=== PATIENT | male | born 1935 | race Caucasian/White ===

== ENCOUNTER 2016-09-10 12:53 | Inpatient (IN) | payer MEDICAID, OTHER ==
[~2016-09-10] VITALS: Ht 170.2 cm; Wt 59.7 kg
[2016-09-10] MEDS: metroNIDAZOLE 500 MG/NS (PMX) 100 ML IVPB SCH (02:00)
[2016-09-10] MEDS ORDERED: morphine 2 MG INJ IV STA ×2 (15:18→20:17)
[2016-09-10] MEDS ORDERED: SOD CHLORIDE 0.9% 1,000 ML IV STA (15:18)
[2016-09-10] MEDS ORDERED: ONDANSETRON 4 MG INJ IV STA ×2 (15:18→20:17)
--- NOTE | 2016-09-10 16:00 | RADRPT ---
PROCEDURE: XR Chest. CLINICAL INDICATION: Chest pain. Abdominal pain TECHNIQUE: Single frontal chest x-ray. COMPARISON: None. FINDINGS: The lungs are clear of acute infiltrates, edema, effusions, or masses. There is right basilar discoi d atelectasis.. The cardiomediastinal silhouette is unremarkable. The osseous structures are intact . IMPRESSION: Right basilar discoid atelectasis.. RPTAT: JJ .Enrique Story MD, Date Time Electronically viewed and signed by .Enrique Story MD, on 09/10/2016 15:59 .L/
[2016-09-10 16:21] LABS: BASOPHILS % 0.1 % (0.0-2.0); EOSINOPHILS % 0.3 % (0.0-7.0); HEMATOCRIT 52.6 % (42.0-52.0); HEMOGLOBIN 17.8 g/dl (14.0-18.0); LYMPHOCYTES # 1.1 10^3/ul (0.8-2.9); LYMPHOCYTES % 8.2 % (15.0-51.0); MEAN CORPUSCULAR HEMOGLOBIN 32.3 pg (29.0-33.0); MEAN CORPUSCULAR HGB CONC 33.7 g/dl (32.0-37.0); MEAN CORPUSCULAR VOLUME 95.7 fl (82.0-101.0); MONOCYTE # 1.2 10^3/ul (0.3-0.9); MONOCYTES % 9.3 % (0.0-11.0); NEUTROPHIL # 10.5 10^3/ul (1.6-7.5); NEUTROPHILS % 82.1 % (39.0-77.0); PLATELET COUNT 142 10^3/UL (140-440); RED CELL DISTRIBUTION WIDTH 14.9 % (11.5-14.5); UNCORRECTED WBC 12.8 10^3/ul (4.8-10.8); WHITE BLOOD COUNT 12.8 10^3/ul (4.8-10.8)
[2016-09-10 16:22] LABS: CONDITION 1; LH ANALYZER COMMENTS 1
[2016-09-10 16:25] LABS: INR 1.03; PROTIME 13.5 Sec (12.2-14.2); PT RATIO 1.1
[2016-09-10 16:26] LABS: PARTIAL THROMBOPLASTIN TIME 33.9 Sec (25.0-35.0); POTASSIUM 4.2 mmol/L (3.5-5.1)
[2016-09-10 16:28] LABS: ALBUMIN/GLOBULIN RATIO 0.95; BILIRUBIN,INDIRECT 2.3 mg/dl (0-1.1); BILIRUBIN,TOTAL 2.3 mg/dl (0.2-1.3); CREATININE 0.95 mg/dl (0.61-1.24); TOTAL PROTEIN 8.2 g/dl (6.1-8.1)
[2016-09-10 16:29] LABS: CALCIUM 9.2 mg/dl (8.4-10.2)
[2016-09-10 16:38] LABS: TROPONIN-I 0.022 ng/ml (0.00-0.12)
[2016-09-10] MEDS ORDERED: SOD CHLORIDE 0.9% 100 ML ONE (17:23)
[2016-09-10] MEDS ORDERED: IODIXANOL LOCM 100 ML BTL ONE (17:23)
--- NOTE | 2016-09-10 17:41 | RADRPT ---
PROCEDURE: CT Brain without contrast. CLINICAL INDICATION: Trauma due to a fall 2 days ago. TECHNIQUE: A CT of the brain without contrast was performed utilizing axial sections from the skul l base through the vertex. The patient was scanned without intravenous contrast enhancement. Sagitta l and coronal reformatted images were obtained using the data from the axial images. Total exam DLP is 720.23 mGy-cm. CTDIvol is 44.19 mGy. One or more of the following dose reduction techniques we re used: Automated exposure control, adjustment of the mA and/or kV according to patient size, use o f iterative reconstruction technique. COMPARISON: None available FINDINGS: There is normal mayberry-white matter differentiation. There is mild enlargement of the ventricles and subarachnoid spaces consistent with atrophy. Vascul ar calcifications are present consistent with atherosclerosis. There is no intracranial hemorrhage or space-occupying lesion. There is no skull fracture or lytic lesion. IMPRESSION: 1. Mild atrophy. 2. Atherosclerosis. 3. No intracranial hemorrhage. 4. Otherwise unremarkable noncontrast CT scan of the brain. RPTAT: QQ .Mingo Schneider MD, Date Time Electronically viewed and signed by .Mingo Schneider MD, on 09/10/2016 17:41 .R/
--- NOTE | 2016-09-10 17:57 | RADRPT ---
PROCEDURE: CT Abdomen and Pelvis with Contrast CLINICAL INDICATION: Abdominal pain TECHNIQUE: Transaxial images were obtained through the abdomen and pelvis on a multi-slice scanner following the intravenous administration of iodinated contrast. No oral contrast had previously be en given. Sagittal and coronal re-formations were subsequently reconstructed. One or more of the following dose reduction techniques were used: - Automated exposure control. - Adjustment of the mA and/or kV according to patient size. - Use of iterative reconstruction technique. Radiation dose: CTDIvol = 10.05 mGy; DLP = 514.36 mGy-cm. COMPARISON: No prior studies are available for comparison. FINDINGS: Lung bases: Discoid atelectatic changes seen within the lower lobes and right middle lobe. There is a small gravitating right pleural fluid accumulation. The heart is mildly enlarged. Liver: The liver is normal in size and appears diffusely fatty infiltrated. A 2.8 cm peripherally e nhancing nodule is seen within the left lobe of the liver. The liver contour is slightly nodular camacho ggesting cirrhotic change. Gallbladder: There is cholelithiasis with the gallbladder contracted. Bile ducts: The intra and extrahepatic bile ducts are normal in caliber. Pancreas: Appears normal with no mass or inflammation evident. Spleen: Normal in size with no focal lesion. Adrenals: Normal with no mass identified. Kidneys, ureters and bladder: The kidneys enhance normally and are normal in size and there is no ma ss, pathological calcification, or hydronephrosis evident. There is no perinephric stranding. The ur eters are normal in caliber and no ureteroliths are identified. The bladder appears unremarkable. Reproductive organs: The prostate is prominent and contains coarse calcification. Stomach, bowel, and mesentery: There is diverticulosis of the colon. There is bowel wall thickening involving the cecum and ascending colon as well as the proximal transverse colon suspicious for col itis. There is thickening of the wall of the duodenum suspicious for duodenitis. There is no evide nce of bowel obstruction. Appendix: The vermiform appendix is not discretely identified. Peritoneum: No free intraperitoneal fluid or air is identified. Aorta: No abdominal aortic aneurysm is identified but there is fairly extensive mural plaquing which extends to the iliac arteries and a vein common femoral arteries. IVC: Unremarkable. Lymph nodes: No pathologically enlarged nodes are identified. Osseous structures: There is calcification is seen extensively through the anterior longitudinal lig ament compatible with ankylosing spondylitis. There is a chance fracture extending horizontally thr ough the superior L1 vertebral body and to the pedicles. IMPRESSION: 1. Discoid atelectasis is seen in the lower lobes and right middle lobe with a small right gravitati ng pleural fluid accumulation. The heart is mildly enlarged. 2. The liver is normal in size but diffusely fatty infiltrated. A 2.8 cm enhancing nodule is seen within the left lobe of the liver which may represent a hemangioma but is incompletely characterized . 1 might consider correlation with a dynamic CT using angioma protocol. 3. No evidence of urinary outflow obstruction. The prostate is mildly enlarged and contains coarse calcifications. 3. Diverticulosis of the colon with thickening of the wall of the cecum, ascending colon and proxim al transverse colon suspicious for colitis. There is mild thickening of the wall of the duodenum camacho spicious for duodenitis. 4. Aortic tortuosity with fairly extensive atherosclerotic changes and mural plaquing. 5. Ankylosing spondylitis with a chance fracture extending through the superior L1 body and pedicle s. Findings of L1 chance fracture were telephoned by Shyam Bullock MD to Dr. Crenshaw on 09/10/2016 a t 1755 hours. Physician Karoline Date Time Electronically viewed and signed by Physician Karoline on 09/10/2016 17:57 /
[2016-09-10 18:09] VITALS: TEMP 98.2
[2016-09-10] MEDS ORDERED: ONDANSETRON 4 MG INJ IV PRN (19:30)
[2016-09-10] MEDS ORDERED: ACETAMINOPHEN 325 MG TAB PO PRN ×2 (19:30→22:30)
--- NOTE | 2016-09-10 20:13 | ERA ---
ER Documentation Chief Complaint Date/Time DATE: 09/10/16 TIME: 20:04 Chief Complaint MECHANICAL FALL- HIT BACK OF THE HEAD; NO KO; NO N/V - FELL 2 DAY AGO HPI This is an 81-year-old male with a known history of uto-wdmoogz-pwdwmslmr diabetes mellitus who lives in [facility]. The patient is visiting his family here in [place] and 48 hours prior to arrival had gone to [place] for a family alliance party. 2 days prior to arrival the patient had fallen down 6 steps which she stated was a mechanical fall while in [place]. He landed on his buttocks and has been complaining of severe lower back pain since the fall. He has been able to ambulate but states that he can only move very slowly without exacerbating the pain. He did not take any analgesic medication prior to arrival. When the patient fell down the 6 steps he also hit his head but stated he did not lose consciousness. He is felt nauseous but has not experienced any hemoptysis hematemesis or melanotic stools. He does have a history of psoriasis and takes anti-inflammatories on a regular basis for pain from the psoriasis. He has had no fevers no shaking or chills. He denies any chest pain or pressure that radiates to the neck arm back or jaw pain he denies any saddle anesthesia. He denies any changes in his bladder or bowel frequency he states the lower back pain is 10 out of 10 in intensity. Just prior to arrival he did indicate that he was also experiencing some lower abdominal pain more prominent in the left lower quadrant, 8 out of 10 in intensity that was exacerbated with movement. ROS All systems reviewed and are negative except as per history of present illness. Allergies Allergies: Coded Allergies: No Known Allergy (Unverified , 09/10/16) PMhx/Soc Hx Alcohol Use: Yes (previous abuse ) Hx Substance Use: No Hx Tobacco Use: Yes Smoking Status: Current some day smoker Physical Exam Vitals Vital Signs Date Time Temp Pulse Resp B/P Pulse Ox O2 Delivery O2 Flow Rate FiO2 09/10/16 18:09 98.2 78 19 127/78 96 Nasal Cannula 2.0 09/10/16 13:34 98.2 76 19 171/74 93 Physical Exam Constitutional:Well-developed. Well-nourished. Sitting in a chair it was difficult for him to ambulate or stand. HEENT:Normocephalic. Left posterior scalp hematoma..Pupils were equal round reactive to light. Moist mucous membranes.No tonsillar exudates. Neck: No nuchal rigidity. No lymphadenopathy. No posterior cervical spine tenderness or step-offs. Respiratory: Not using accessory muscles of respiration.Lungs were clear to auscultation bilaterally. No rhonchi. No rales. No wheezing. Cardiovascular: Regular rate regular rhythm.No murmurs. No rubs were appreciated.S1, S2 normal. Distal pulses are palpable 2+ bilaterally. GI: Abdomen was soft. Mild tenderness in the left lower quadrant. Non Distended. No pulsatile abdominal masses or bruits. No rebound. No guarding. Bowel sounds were present and normal. No flank ecchymosis. No periumbilical ecchymosis Muscle skeletal: Reproducible tenderness with palpation and percussion over L1- L2 with no tenderness with palpation or percussion over the thoracic spinous processes. Patient had muscular strength 2 out of 5 of the right lower extremity and 4 out of 5 of the left lower extremity. Lower extremities were of equal length and symmetrical with no internal/external rotation. Skin: No petechia, no purpura. No lesions on the palms or the soles of the feet. No maculopapular rash. Psoriasis rash to the right of the paralumbar region. Well-circumscribed psoriasis rash of the left lower abdomen. NEURO: Patient was alert, awake, orientated x3.No facial droop. Gait observed and normal with no ataxia.Speech had regular rate and rhythm. No focal neurological deficits. Result Diagram: 09/10/16 1545 09/10/16 1545 Results 24 hrs Laboratory Tests Test 09/10/16 15:45 Activated Partial Thromboplast Time 33.9Sec Alanine Aminotransferase (ALT/SGPT) 44IU/L Albumin 4.0g/dl Albumin/Globulin Ratio 0.95 Alkaline Phosphatase 207IU/L Amylase Level 49U/L Anion Gap 18 Aspartate Amino Transf (AST/SGOT) 51IU/L Basophils # 0.010^3/ul Basophils % 0.1% Blood Morphology Comment Blood Urea Nitrogen 39mg/dl Calcium Level 9.2mg/dl Carbon Dioxide Level 25mmol/L Chloride Level 103mmol/L Creatinine 0.95mg/dl Direct Bilirubin 0.00mg/dl Eosinophils # 0.010^3/ul Eosinophils % 0.3% Globulin 4.20g/dl Glucose Level 142mg/dl Hematocrit 52.6% Hemoglobin 17.8g/dl INR International Normalized Ratio 1.03 Indirect Bilirubin 2.3mg/dl Lipase 37U/L Lymphocytes # 1.110^3/ul Lymphocytes % 8.2% Mean Corpuscular Hemoglobin 32.3pg Mean Corpuscular Hemoglobin Concent 33.7g/dl Mean Corpuscular Volume 95.7fl Mean Platelet Volume 9.0fl Monocytes # 1.210^3/ul Monocytes % 9.3% Neutrophils # 10.510^3/ul Neutrophils % 82.1% Nucleated Red Blood Cells # 0.010^3/ul Nucleated Red Blood Cells % 0.0/100WBC Platelet Count 05537^3/UL Potassium Level 4.2mmol/L Prothrombin Time 13.5Sec Prothrombin Time Ratio 1.1 Red Blood Count 5.5010^6/ul Red Cell Distribution Width 14.9% Sodium Level 142mmol/L Total Bilirubin 2.3mg/dl Total Protein 8.2g/dl Troponin I 0.022ng/ml White Blood Count 12.810^3/ul Current Medications Medications (Trade) Dose Ordered Sig/Lyudmila Route PRN Reason Start Time Stop Time Status Last Admin Dose Admin Sodium Chloride (NS) 1,000 ml @ 1,000 mls/hr Q1H STAT IV 09/10/16 15:18 09/10/16 16:17 DC 09/10/16 15:57 Morphine Sulfate (morphine) 2 mg ONCE STAT IV 09/10/16 15:18 09/10/16 15:21 DC 09/10/16 15:57 Ondansetron HCl (Zofran Inj) 4 mg ONCE STAT IV 09/10/16 15:18 09/10/16 15:21 DC 09/10/16 15:57 IV Flush 10 ml 10 ml STK-MED ONCE .ROUTE 09/10/16 17:23 09/10/16 17:24 DC 09/10/16 17:50 Sodium Chloride (NS) 100 ml @ ud STK-MED ONCE .ROUTE 09/10/16 17:23 09/10/16 17:24 DC 09/10/16 17:50 Iodixanol (Visipaque Locm) 100 ml STK-MED ONCE .ROUTE 09/10/16 17:23 09/10/16 17:24 DC 09/10/16 17:50 Ondansetron HCl (Zofran Inj) 4 mg ER BRIDGE PRN IV NAUSEA AND/OR VOMITING 09/10/16 19:30 09/11/16 19:29 09/10/16 20:18 Acetaminophen (Tylenol Tab) 650 mg ER BRIDGE PRN PO MILD PAIN/FEVER 09/10/16 19:30 09/11/16 19:29 Morphine Sulfate (morphine) 2 mg ONCE STAT IV 09/10/16 20:17 09/10/16 20:18 DC 09/10/16 20:19 Ondansetron HCl (Zofran Inj) 4 mg ONCE STAT IV 09/10/16 20:17 09/10/16 20:18 DC Procedures/MDM This patient presented to the emergency department 48 hours after a mechanical trip and fall. I obtained a CT scan of the head which showed no acute intracerebral hemorrhage mass-effect or midline shift. The patient appeared to be in a significant amount discomfort of his lower lumbar spine and left lower quadrant and therefore given that there was possible blunt abdominal trauma as he stated he does believe he also landed on the left lower quadrant, I did obtain a CT scan of the abdomen which showed the following as it was read by the radiologist and myself: 1. Discoid atelectasis is seen in the lower lobes and right middle lobe with a small right gravitating pleural fluid accumulation. The heart is mildly enlarged. 2. The liver is normal in size but diffusely fatty infiltrated. A 2.8 cm enhancing nodule is seen within the left lobe of the liver which may represent a hemangioma but is incompletely characterized. 1 might consider correlation with a dynamic CT using angioma protocol. 3. No evidence of urinary outflow obstruction. The prostate is mildly enlarged and contains coarse calcifications. 3. Diverticulosis of the colon with thickening of the wall of the cecum, ascending colon and proximal transverse colon suspicious for colitis. There is mild thickening of the wall of the duodenum suspicious for duodenitis. 4. Aortic tortuosity with fairly extensive atherosclerotic changes and mural plaquing. 5. Ankylosing spondylitis with a chance fracture extending through the superior L1 body and pedicles. 12 Lead EKG tracing ordered and reviewed by myself showed: Normal sinus rhythm of 71 bpm and no arrhythmia. TX interval normal. QRS duration normal. No ST segment elevation. Premature ventricular complexes No ST segment depression. No changes consistent with acute ischemia. Left axis deviation Given the findings on the CT scan of the abdomen I did speak with the neurosurgeon Dr. Fernández. The patient given his age and findings on the CT scan was likely not a surgical candidate but would require a TLSO brace which was ordered by myself. The patient was seen by Dr. Fernández who kindly came to the bedside to further evaluate the patient. The patient received analgesic medication with minimal improvement of his pain which included morphine and Zofran. The patient will be admitted in serious condition to the hospitalist with an anticipated stay of greater than 2 midnights. Critical Care: Time: 50 minutes Treatments/Evaluations: Close monitoring and treatment of unstable vital signs, cardiorespiratory, and neurologic status, while maintaining tight balance of fluid, respiratory, and cardiac interventions. Time does not include performing any of the above billable procedures. Departure Diagnosis: Primary Impression: Closed head injury Qualified Code: S09.90XA - Closed head injury, initial encounter Additional Impressions: Fracture of lumbar vertebra, closed Qualified Code: S32.018A - Other closed fracture of first lumbar vertebra, initial encounter Ankylosing spondylitis Condition: Serious MAMTA MARCOS Sep 10, 2016 20:13
[2016-09-10] MEDS ORDERED: LORAZEPAM 2 MG INJ IV PRN (22:30)
[2016-09-10] MEDS ORDERED: NACL 0.9% 3 ML SYG IV SCH (22:30)
[2016-09-11] VITALS (13 sets, daily range): BP systolic 111–133; BP diastolic 56–76; PULSE 63–74; RESP 19–20; Ht 170.2 cm; Wt 59.7 kg
[2016-09-11] MEDS: DOCUSATE SODIUM 100 MG CAP PO SCH ×3 (02:47→21:52)
[2016-09-11] MEDS: CIPROFLOXACIN 400MG/D5W 200 ML IVPB SCH ×3 (02:47→21:52)
[2016-09-11] MEDS: metroNIDAZOLE 500 MG/NS (PMX) 100 ML IVPB SCH ×3 (06:17→21:52)
[2016-09-11 06:58] LABS: BASOPHILS % 0.4 % (0.0-2.0); EOSINOPHILS # 0.2 10^3/ul (0.0-0.5); EOSINOPHILS % 1.7 % (0.0-7.0); HEMATOCRIT 45.6 % (42.0-52.0); HEMOGLOBIN 15.5 g/dl (14.0-18.0); LYMPHOCYTES # 1.5 10^3/ul (0.8-2.9); LYMPHOCYTES % 14.1 % (15.0-51.0); MEAN CORPUSCULAR HEMOGLOBIN 32.6 pg (29.0-33.0); MEAN CORPUSCULAR HGB CONC 34.1 g/dl (32.0-37.0); MEAN CORPUSCULAR VOLUME 95.6 fl (82.0-101.0); MEAN PLATELET VOLUME 9.1 fl (7.4-10.4); MONOCYTE # 1.3 10^3/ul (0.3-0.9); MONOCYTES % 12.1 % (0.0-11.0); NEUTROPHIL # 7.5 10^3/ul (1.6-7.5); NEUTROPHILS % 71.7 % (39.0-77.0); PLATELET COUNT 137 10^3/UL (140-440); RED BLOOD COUNT 4.77 10^6/ul (4.70-6.10); UNCORRECTED WBC 10.4 10^3/ul (4.8-10.8); WHITE BLOOD COUNT 10.4 10^3/ul (4.8-10.8)
[2016-09-11 07:01] LABS: CONDITION 1
[2016-09-11 07:02] LABS: LH ANALYZER COMMENTS 1
[2016-09-11 07:23] LABS: ALBUMIN 3.1 g/dl (3.3-4.9)
[2016-09-11 07:24] LABS: POTASSIUM 4.2 mmol/L (3.5-5.1)
[2016-09-11 07:26] LABS: ALBUMIN/GLOBULIN RATIO 0.93; BILIRUBIN,INDIRECT 2.2 mg/dl (0-1.1); BILIRUBIN,TOTAL 2.2 mg/dl (0.2-1.3); CREATININE 0.78 mg/dl (0.61-1.24); TOTAL PROTEIN 6.4 g/dl (6.1-8.1)
[2016-09-11 07:27] LABS: CALCIUM 8.3 mg/dl (8.4-10.2); CHOL/HDL RATIO 4.9 RATIO
[2016-09-11] MEDS: morphine 2 MG INJ IV PRN ×2 (08:47→18:43)
[2016-09-11] MEDS: HEPARIN 5,000 UNIT/0.5 ML SYG SC SCH ×2 (08:49→23:49)
--- NOTE | 2016-09-11 09:39 | HP ---
DATE OF ADMISSION: 09/10/2016 TIME SEEN: 2300 CHIEF COMPLAINT: Mechanical fall, back pain, and difficulty walking. HISTORY OF PRESENT ILLNESS: The patient is an 81-year-old male with a history of diabetes and psori asis who presented to the emergency department with above-stated chief complaint. The patient fell down 6 steps 3 days ago while he was in [place]. He landed on his buttock and since then has been ex periencing lower back pain and difficulty ambulating because of the pain. He also did hit the back of his head, but denied loss of consciousness. When he presented to the ER, blood pressure was 171/74, heart rate 76, respiratory rate 19, temperat ure 98.0, oxygen saturation 93% on room air. Laboratory values show WBC of almost 13,000, hematocri t 62.6, BUN 13 with a creatinine of 0.9, total bilirubin 2.3, AST 51, alkaline phosphatase 207. Bra in CT showed mild atrophy, otherwise unremarkable. Chest x-ray shows right basilar discoid atelecta sis. CT abdomen and pelvis with contrast showed ankylosing spondylitis with Chance fracture extendi ng through the superior L1 body and pedicles. Of note, the diverticulosis of the colon as well as t hickening of the cecum, ascending colon, and the proximal transverse colon suspicious for colitis. Also, mild thickening of the duodenum suspicious for duodenitis. He also has a 2.8 cm enhancing nod ule within the left lobe of the liver which may represent a hemangioma. The discoid atelectasis als o was seen on the lower lobe and right middle lobe with a small right pleural fluid accumulation. Mervin Freed, the on-call neurosurgeon, had been consulted by the ER physician. REVIEW OF SYSTEMS: Negative except as mentioned in the HPI. PAST MEDICAL HISTORY: As per HPI. SOCIAL HISTORY: History of alcohol abuse in the past. ALLERGIES: NO KNOWN DRUG ALLERGIES. HOME MEDICATIONS: None listed. PHYSICAL EXAMINATION: VITAL SIGNS: Stable. GENERAL: Elderly male lying in bed in no acute distress, sleepy, but arousable. HEENT: There is a scalp hematoma on the left posterior region. Pupils are reactive to light. CARDIOVASCULAR: Regular rate and rhythm. No extra sounds. LUNGS: Slightly diminished breath sounds at the bases. ABDOMEN: Soft, there is some mild tenderness in the left lower quadrant with no guarding, rebound t enderness, no rigidity. There is psoriasis on the left lower abdominal region. EXTREMITIES: No edema. NEUROLOGIC AND MUSCULOSKELETAL: There is tenderness and lower back/lumbar region to palpation. He has decreased strength in the right lower extremity. A rash consistent with psoriasis was noted in the lumbar region. IMPRESSION: 1. Status post mechanical fall with head and back injury. 2. Fracture of the lumbar vertebra. 3. Closed head injury, with a negative head CT finding. 4. Colitis, diverticulosis, and duodenitis. 5. Left lower lobe liver nodule. 6. Diffuse fatty liver. 7. History of alcohol abuse. 8. Diabetes. 9. Leukocytosis. 10. Erythrocytosis, likely hemoconcentration from dehydration. PLAN: We will provide pain medication. Currently, he is awaiting evaluation by neurosurgeon and wi ll leave the decision up surgeon as far as lasted obtaining additional imaging is concerned. She wi ll be placed on antibiotic given CT finding of colitis and duodenitis. Leukocytosis could be second patrice to infectious etiology from the colitis versus stress-induced, but in any case, he will be will send stool studies. He will be on insulin for his diabetes. Also, he has an enhancing nodule on his liver, and given history of alcohol abuse, will obtain a high resolution CT or MRI for furth er evaluation. The patient will have a physical therapy when cleared by Neurosurgery. Further workup and management per clinical course. Dictated By: ETHEL ARANDA/KEREN Conf#: [id number] DID#: [id number]
[2016-09-11 11:57] LABS: CARCINOEMBRYONIC ANTIGEN 2.1 ng/ml (0.0-5.0)
[2016-09-11 12:01] LABS: CANCER ANTIGEN 19-9 6.3 U/ml (0.0-37.0)
--- NOTE | 2016-09-11 12:53 | RADRPT ---
Echocardiogram Report Patient Name: HIEU CARPIO Gender: Male Date: 1935 Study Date: 11-Sep-2016 Reserve Officer: Devaughn Marie [facility] Location: 512A Ref. Physician: ETHEL CARTAGENA Quality: Technically Difficult Study Procedures: Transthoracic echocardiogram with complete 2D, M-Mode, and doppler examination. Indications: Dizziness. 2D/M Mode Doppler Measurement Value Normal Ranges Measurement Value Normal Ranges LVIDd 2D 4.9 3.5 - 5.6 cm AV Peak Anthony 1.1 m/sec LVIDs 2D 2.9 2.1 - 4.1 cm AV Peak PG 4.8 mmHg LVPWd 2D 0.9 0.6 - 1.1 cm LVOT Peak Anthony 0.9 m/sec IVSd 2D 0.8 0.6 - 1.1 cm LVOT Peak PG 3.3 mmHg AoR Diam 2D 2.4 2.0 - 3.7 cm MV E Peak Anthony 0.7 m/sec EDV 2D 111.6 cm3 MV A Peak Anthony 0.8 m/sec ESV 2D 25.0 cm3 MV E/A 0.9 LA Dimen 2D 3.3 2.3 - 4.0 cm MV Decel Time 233 msec MV Decel [place] 3 MV E/A 0.9 Findings Left Ventricle: Lower limits of normal systolic function. Ejection fraction is visually estimated at 50 %. Tissue Doppler/Mitral Doppler indices are consistent with impaired relaxation (Stage I diastolic dysfunction). Right Ventricle: Normal right ventricular size. Normal right ventricular systolic function. Left Atrium: The left atrium is normal in size. Right Atrium: The right atrium is normal in size. Mitral Valve: Mitral valve leaflets appear mildly thickened. Trace mitral regurgitation. Aortic Valve: Normal appearance of the aortic valve. No significant aortic stenosis or insufficiency. Tricuspid Valve: Normal appearance and function of the tricuspid valve with trace physiologic regurgitation. Pericardium: Normal pericardium with no significant pericardial effusion. Aorta: Normal aortic root. IVC: Normal size and normal respiratory collapse consistent with normal right atrial pressure. Conclusions 1.Lower limits of normal systolic function. Ejection fraction is visually estimated at 50 %. Tissue Doppler/Mitral Doppler indices are consistent with impaired relaxation (Stage I diastolic dysfunction). 2.Mitral valve leaflets appear mildly thickened. Trace mitral regurgitation. 3.Normal appearance and function of the tricuspid valve with trace physiologic regurgitation. Electronically Signed By: Walter Austin 11-Sep-2016 12:53:08 -0800 Patient Name: HIEU CARPIO Study Date: 11-Sep-[id number]
--- NOTE | 2016-09-11 15:00 | PN ---
Date/Time of Note Date/Time of Note DATE: 09/11/16 TIME: 14:55 Assessment/Plan VTE Prophylaxis VTE Prophylaxis Intervention: heparin Lines/Catheters IV Catheter Type (from Nrs): Saline Lock Urinary Cath still in place: No Assessment/Plan Chief Complaint/Hosp Course 1. Status post mechanical fall with head and Fracture of the lumbar vertebra -plan is for Brace placement 3. Closed head injury, with a negative head CT finding. 4. Liver nodule with Hx of EtOH abuse -US Abd to eval Liver and for ascites and tumor markers 5. Diabetes-A1c at 8.0 6. Leukocytosis-resolved PPx- Heparin Problems: Subjective 24 Hr Interval Summary Musculoskeletal: back pain Exam/Review of Systems Vital Signs Vitals Vital Signs Date Time Temp Pulse Resp B/P Pulse Ox O2 Delivery O2 Flow Rate FiO2 09/11/16 12:16 64 09/11/16 12:04 98.8 20 111/56 91 09/10/16 23:10 Room Air 09/10/16 18:09 2.0 Intake and Output 09/10/16 09/10/16 09/11/16 15:00 23:00 07:00 Intake Total 200 ml Balance 200 ml Exam Constitutional: alert Respiratory: clear to auscultation Cardiovascular: regular rate and rhythm Gastrointestinal: distended, soft Musculoskeletal: nl extremities to inspection Results Result Diagram: 09/11/1660409/11/16604 Results 24 hrs Laboratory Tests Test 09/10/16 15:45 09/11/16 06:05 Activated Partial Thromboplast Time 33.9 Alanine Aminotransferase (ALT/SGPT) 44 39 Albumin 4.0 3.1 L Albumin/Globulin Ratio 0.95 0.93 Alkaline Phosphatase 207 H 160 H Amylase Level 49 Anion Gap 18 H 13 Aspartate Amino Transf (AST/SGOT) 51 H 35 Basophils # 0.0 0.0 Basophils % 0.1 0.4 Blood Morphology Comment Blood Urea Nitrogen 39 H 33 H Calcium Level 9.2 8.3 L Carbon Dioxide Level 25 26 Chloride Level 103 105 Creatinine 0.95 0.78 Direct Bilirubin 0.00 0.00 Eosinophils # 0.0 0.2 Eosinophils % 0.3 1.7 Globulin 4.20 H 3.30 H Glucose Level 142 112 Hematocrit 52.6 H 45.6 Hemoglobin 17.8 15.5 INR International Normalized Ratio 1.03 Indirect Bilirubin 2.3 H 2.2 H Lipase 37 Lymphocytes # 1.1 1.5 Lymphocytes % 8.2 L 14.1 L Mean Corpuscular Hemoglobin 32.3 32.6 Mean Corpuscular Hemoglobin Concent 33.7 34.1 Mean Corpuscular Volume 95.7 95.6 Mean Platelet Volume 9.0 9.1 Monocytes # 1.2 H 1.3 H Monocytes % 9.3 12.1 H Neutrophils # 10.5 H 7.5 Neutrophils % 82.1 H 71.7 Nucleated Red Blood Cells # 0.0 0.0 Nucleated Red Blood Cells % 0.0 0.0 Platelet Count 142 137 L Potassium Level 4.2 4.2 Prothrombin Time 13.5 Prothrombin Time Ratio 1.1 Red Blood Count 5.50 4.77 Red Cell Distribution Width 14.9 H 15.0 H Sodium Level 142 140 Total Bilirubin 2.3 H 2.2 H Total Protein 8.2 H 6.4 # Troponin I 0.022 White Blood Count 12.8 H 10.4 Alpha Fetoprotein 3.40 CA 19-9 Antigen 6.3 Carcinoembryonic Antigen 2.1 Cholesterol Level 154 Cholesterol/HDL Ratio 4.9 HDL Cholesterol 31 Hemoglobin A1c 8.0 H LDL Cholesterol, Calculated 90 Magnesium Level 2.0 Triglycerides Level 165 H Medications Medications Current Medications Lorazepam (Ativan) 0.5 mg Q6H PRN IV ANXIETY; Start 09/10/16 at 22:30 Ondansetron HCl (Zofran Inj) 4 mg Q6H PRN IV NAUSEA AND/OR VOMITING; Start at 22:30 Acetaminophen (Tylenol Tab) 650 mg Q6H PRN PO PAIN LEVEL 1-3 OR FEVER; Start at 22:30 Oxycodone/ Acetaminophen (Percocet (5/ 325)) 1 tab Q6H PRN PO PAIN LEVEL 4-6; Start 09/10/16 at 22:30 Morphine Sulfate (morphine) 2 mg Q4H PRN IV PAIN LEVEL 7-10 Last administered on 09/11/16 08:47; Admin Dose 2 MG; Start 09/10/16 at 22:30 Docusate Sodium (Colace) 100 mg Q12 PO Last administered on 09/11/16 08:47; Admin Dose 100 MG; Start 09/11/16 at 00:30 Heparin Sodium (Porcine) 5000 unit 5,000 unit Q12 SC Last administered on 08:49; Admin Dose 5,000 UNIT; Start 09/11/16 at 09:00 Ciprofloxacin/ Dextrose 200 ml @ 200 mls/hr Q12 IVPB Last administered on 08:47; Admin Dose 200 MLS/HR; Start 09/11/16 at 00:15 Metronidazole (Flagyl 500 Mg (Pmx)) 100 ml @ 100 mls/hr Q8 IVPB Last administered on 09/11/16 06:17; Admin Dose 100 MLS/HR; Start 09/10/16 at 23:15 Influenza Virus Vaccine (Fluzone) 0.5 ml ONCE ONCE IM* ; Start 09/13/16 at 09:00 ; Stop 09/13/16 at 09:01 YSABEL CORNEJO Sep 11, 2016 15:00
--- NOTE | 2016-09-11 16:29 | RADRPT ---
PROCEDURE: US Abdomen (right upper quadrant). CLINICAL INDICATION: Right upper quadrant abdomen pain. TECHNIQUE: Multiple real-time longitudinal and transverse images of the right upper quadrant of th e abdomen were acquired utilizing a curved array transducer. Images were reviewed on a high-resoluti on PACS workstation. COMPARISON: CT scan of the abdomen and pelvis dated 09/10/2016. FINDINGS: The liver is normal in size and diffusely heterogeneous. There is a solid hypoechoic mass in the le ft hepatic lobe measuring 2.2 x 2.8 x 2.9 cm. There is no other focal hepatic lesion. The liver has a nodular surface consistent with cirrhosis. Gallstones are present in the gallbladder. There is no gallbladder wall thickening and there is no fluid around the gallbladder. The bile ducts are normal with the common bile duct measuring 6.5 mm in diameter. The pancreas is not visualized due to overlying bowel gas. There is no ascites. The right kidney measures 9.3 cm. There is normal echogenicity of the right kidney. There is no p erinephric fluid collection. No hydronephrosis, mass, or calculus is seen. IMPRESSION: 1. Diffusely heterogeneous nodular liver consistent with cirrhosis. 2. Mass in the left hepatic lobe measuring 2.9 cm in maximal dimension. This may be due to neoplas m. Correlation with MRI without and with contrast should be considered. 3. Gallstones in the gallbladder. No evidence of cholecystitis. 4. Pancreas not visualized. 5. No ascites. 6. Otherwise unremarkable study. RPTAT: QQ .Mingo Schneider MD, Date Time Electronically viewed and signed by .Mingo Schneider MD, MD on 09/11/2016 16:29 .R/
--- NOTE | 2016-09-11 18:25 | CONS ---
DATE OF ADMISSION: 09/10/2016 DATE OF CONSULTATION: 09/10/2016 TYPE OF CONSULTATION: Neurosurgical REQUESTING PHYSICIAN: Coby Crenshaw MD INDICATION FOR CONSULTATION: Lumbar fracture. HISTORY OF PRESENT ILLNESS: The patient is an 81-year-old male with a history of diabetes who lives in [facility]. 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 The patient apparently had a mechanical fall where he tripped down some stairs. He landed on his buttocks. Denied any neck pain or hitting his head, but reports severe low back pain. This was 2 days ago. The patient came back to the and was brought to the ER. Here he denies any numbness, tingling, bowel or bladder issues (other than chronic slight urgency from BPH. He reports severe mid back pain. He denies any saddle anesthesia. The patient also had reported some abdominal pain previously, but on my exam denied this. REVIEW OF SYSTEMS: A 12-point review of systems performed. Pertinent positives and negatives listed in the history of present illness or below. ALLERGIES: NO KNOWN DRUG ALLERGIES. PAST MEDICAL HISTORY: Diabetes. SOCIAL HISTORY: The patient is . He is a smoker, smokes a pack a day. He does drink alcohol and has a reported history of ETOH abuse. PHYSICAL EXAMINATION: VITAL SIGNS: The patient's temperature 98.6, pulse 78, respirations 19, blood pressure 127/70. GENERAL: The patient is a well-developed, well-nourished male sitting up in the [facility]. HEAD AND NECK: Normocephalic, atraumatic. He has no Raya sign, periorbital ecchymoses, otorrhea, or rhinorrhea. His neck is supple, nontender with no paraspinal or midline tenderness. He has full range of motion. MUSCULOSKELETAL: The patient has normal tone and bulk. His motor exam is 5/5 bilaterally upper and lower extremities, although he has some pain with movement. NEUROLOGIC: He is awake, alert, and oriented x3. Fluent speech, follows commands readily and appropriately. He has no pronator drift. Deep tendon reflexes are absent diffusely. He has no clonus, Babinski, or Debbi sign. He has no focal deficits. LABORATORY DATA: White count 12.8, hemoglobin 17.8, platelets 142. Sodium 142 , BUN and creatinine 39 and 0.95. REVIEW OF RADIOGRAPHIC RESULTS: The patient had a CT of the chest, abdomen and pelvis. This showed what was interpreted as a Chance-type fracture that goes through the anterior and posterior elements of the vertebral body of L1. 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 This appears to be more of a crack. There is no displacement, distraction, angulation or slippage and the bones are approximated. ASSESSMENT AND PLAN: An 81-year-old male status post fall with a non-displaced Chance-type fracture. The patient is neurologically intact. I see no indication for an MRI given his intact neurologic status. He has no evidence of clonus and/or bowel or bladder issues or focal motor weakness. Given the patient's age and comorbidities and given the nondisplaced and approximation of this fracture, I believe the patient would best be treated simply with a TLSO, which should be worn at all times when the patient is upright. Given the patient's underlying dystrophic calcification, his fracture should heal. Should the patient develop any neurologic symptoms, then polina-maging should be performed. Thank you for allowing me to participate in the care of this patient. Dictated By: NAVIN MANUEL MD, LG/KEREN Conf#: [id number] DID#: [id number]
[2016-09-11] MEDS ORDERED: GLUCOSE GEL 15 GRAM TUBE PO PRN ×2 (21:30)
[2016-09-11] MEDS ORDERED: GLUCAGON 1 MG INJ IM PRN (21:30)
[2016-09-11] MEDS ORDERED: GLUCOSE GEL 15 GRAM TUBE BUCCAL PRN (21:30)
[2016-09-11] MEDS ORDERED: DEXTROSE 50% 50 ML SYRINGE IV PRN ×2 (21:30)
[2016-09-11] MEDS: INSULIN ASPART [NOVOLOG] 3 ML PEN SC SCH (22:00)
[2016-09-12] VITALS (11 sets, daily range): BP systolic 116–148; BP diastolic 56–74; PULSE 69–143; RESP 20
[2016-09-12] MEDS: morphine 2 MG INJ IV PRN ×5 (00:04→23:46)
[2016-09-12] MEDS: ACCUCHECK XX SCH (02:00)
[2016-09-12] MEDS ORDERED: ACCUCHECK XX SCH (02:00)
[2016-09-12] MEDS: metroNIDAZOLE 500 MG/NS (PMX) 100 ML IVPB SCH ×3 (06:09→22:32)
[2016-09-12] MEDS: INSULIN ASPART [NOVOLOG] 3 ML PEN SC SCH ×4 (07:55→21:00)
[2016-09-12 08:22] LABS: BASOPHILS % 0.3 % (0.0-2.0); EOSINOPHILS # 0.1 10^3/ul (0.0-0.5); EOSINOPHILS % 1.1 % (0.0-7.0); HEMATOCRIT 44.9 % (42.0-52.0); HEMOGLOBIN 15.6 g/dl (14.0-18.0); MEAN CORPUSCULAR HGB CONC 34.7 g/dl (32.0-37.0); MEAN CORPUSCULAR VOLUME 95.2 fl (82.0-101.0); MONOCYTE # 0.9 10^3/ul (0.3-0.9); NEUTROPHIL # 6.4 10^3/ul (1.6-7.5); NEUTROPHILS % 75.6 % (39.0-77.0); PLATELET COUNT 142 10^3/UL (140-440); RED BLOOD COUNT 4.72 10^6/ul (4.70-6.10); RED CELL DISTRIBUTION WIDTH 14.9 % (11.5-14.5); UNCORRECTED WBC 8.4 10^3/ul (4.8-10.8); WHITE BLOOD COUNT 8.4 10^3/ul (4.8-10.8)
[2016-09-12 08:29] LABS: CONDITION 1; LH ANALYZER COMMENTS 1
[2016-09-12 08:31] LABS: POTASSIUM 4.1 mmol/L (3.5-5.1)
[2016-09-12 08:34] LABS: CALCIUM 8.3 mg/dl (8.4-10.2); CREATININE 0.83 mg/dl (0.61-1.24)
[2016-09-12] MEDS: DOCUSATE SODIUM 100 MG CAP PO SCH ×2 (08:38→20:07)
[2016-09-12] MEDS: CIPROFLOXACIN 400MG/D5W 200 ML IVPB SCH ×2 (08:38→20:07)
[2016-09-12] MEDS: HEPARIN 5,000 UNIT/0.5 ML SYG SC SCH ×2 (08:41→21:09)
[2016-09-12] MEDS: OXYCODONE/ACETAMINOPHEN (5/325) TAB PO PRN ×2 (09:36→20:07)
[2016-09-12 14:22] LABS: HAAIG REFLEX REFLEX FILED
[2016-09-12 15:26] LABS: HEPATITIS B CORE ANTIBODY NEGATIVE (NEGATIVE)
--- NOTE | 2016-09-12 15:55 | PN ---
Date/Time of Note Date/Time of Note DATE: 09/12/16 TIME: 15:51 Assessment/Plan VTE Prophylaxis VTE Prophylaxis Intervention: heparin Lines/Catheters IV Catheter Type (from Nrs): Peripheral IV Urinary Cath still in place: No Assessment/Plan Chief Complaint/Hosp Course 1. Status post mechanical fall with head and Fracture of the lumbar vertebra -plan is for Brace placement 3. Closed head injury, with a negative head CT finding. 4. Liver nodule with Hx of EtOH abuse -US Abd shows Liver nodule, Hep panel and Tumor markers negative -Consult with Dr Tao appreciated, plan is for MRI Liver 5. Diabetes-A1c at 8.0 -NISS 6. Leukocytosis-resolved PPx- Heparin Problems: Subjective 24 Hr Interval Summary Musculoskeletal: back pain Exam/Review of Systems Vital Signs Vitals Vital Signs Date Time Temp Pulse Resp B/P Pulse Ox O2 Delivery O2 Flow Rate FiO2 09/12/16 15:14 98.1 65 20 130/58 95 09/12/16 10:55 2.0 09/10/16 23:10 Room Air Intake and Output 09/11/16 09/11/16 09/12/16 15:00 23:00 07:00 Intake Total 1100 ml 850 ml Balance 1100 ml 850 ml Exam Constitutional: alert Respiratory: clear to auscultation Cardiovascular: regular rate and rhythm Gastrointestinal: soft, No distended Musculoskeletal: nl extremities to inspection Results Result Diagram: 09/12/16 0730 09/12/16 0730 Results 24 hrs Laboratory Tests Test 09/11/16 22:14 09/12/16 07:30 09/12/16 08:06 09/12/16 11:57 Bedside Glucose 108 114 118 Anion Gap 13 Basophils # 0.0 Basophils % 0.3 Blood Morphology Comment Blood Urea Nitrogen 27 H Calcium Level 8.3 L Carbon Dioxide Level 23 Chloride Level 106 Creatinine 0.83 Eosinophils # 0.1 Eosinophils % 1.1 Glucose Level 118 Hematocrit 44.9 Hemoglobin 15.6 Lymphocytes # 1.0 Lymphocytes % 12.0 L Mean Corpuscular Hemoglobin 33.0 Mean Corpuscular Hemoglobin Concent 34.7 Mean Corpuscular Volume 95.2 Mean Platelet Volume 9.0 Monocytes # 0.9 Monocytes % 11.0 Neutrophils # 6.4 Neutrophils % 75.6 Nucleated Red Blood Cells # 0.0 Nucleated Red Blood Cells % 0.0 Platelet Count 142 Potassium Level 4.1 Red Blood Count 4.72 Red Cell Distribution Width 14.9 H Sodium Level 138 White Blood Count 8.4 Test 09/12/16 13:50 Hepatitis B Core Total Antibody NEGATIVE Hepatitis B Surface Antigen NEGATIVE Hepatitis C Antibody NEGATIVE Medications Medications Current Medications Lorazepam (Ativan) 0.5 mg Q6H PRN IV ANXIETY; Start 09/10/16 at 22:30 Ondansetron HCl (Zofran Inj) 4 mg Q6H PRN IV NAUSEA AND/OR VOMITING; Start at 22:30 Acetaminophen (Tylenol Tab) 650 mg Q6H PRN PO PAIN LEVEL 1-3 OR FEVER; Start at 22:30 Oxycodone/ Acetaminophen (Percocet (5/ 325)) 1 tab Q6H PRN PO PAIN LEVEL 4-6 Last administered on 09/12/16 09:36; Admin Dose 1 TAB; Start 09/10/16 at 22:30 Morphine Sulfate (morphine) 2 mg Q4H PRN IV PAIN LEVEL 7-10 Last administered on 09/12/16 10:12; Admin Dose 2 MG; Start 09/10/16 at 22:30 Docusate Sodium (Colace) 100 mg Q12 PO Last administered on 09/12/16 08:38; Admin Dose 100 MG; Start 09/11/16 at 00:30 Heparin Sodium (Porcine) 5000 unit 5,000 unit Q12 SC Last administered on 08:41; Admin Dose 5,000 UNIT; Start 09/11/16 at 09:00 Ciprofloxacin/ Dextrose 200 ml @ 200 mls/hr Q12 IVPB Last administered on 08:38; Admin Dose 200 MLS/HR; Start 09/11/16 at 00:15 Metronidazole (Flagyl 500 Mg (Pmx)) 100 ml @ 100 mls/hr Q8 IVPB Last administered on 09/12/16 13:19; Admin Dose 100 MLS/HR; Start 09/10/16 at 23:15 Influenza Virus Vaccine (Fluzone) 0.5 ml ONCE ONCE IM* ; Start 09/13/16 at 09:00 ; Stop 09/13/16 at 09:01 Diagnostic Test (Pha) (Accucheck) 1 ea 02 XX ; Start 2/2/17 at 02:00 Miscellaneous Information 1 ea NOTE XX ; Start 09/11/16 at 21:30 Glucose (Glutose) 15 gm Q15M PRN PO DECREASED GLUCOSE; Start 09/11/16 at 21:30 Glucose (Glutose) 22.5 gm Q15M PRN PO DECREASED GLUCOSE; Start 09/11/16 at 21:30 Dextrose (D50w Syringe) 25 ml Q15M PRN IV DECREASED GLUCOSE; Start 09/11/16 at 21:30 Dextrose (D50w Syringe) 50 ml Q15M PRN IV DECREASED GLUCOSE; Start 09/11/16 at 21:30 Glucagon (Glucagen) 1 mg Q15M PRN IM DECREASED GLUCOSE; Start 09/11/16 at 21:30 Glucose (Glutose) 15 gm Q15M PRN BUCCAL DECREASED GLUCOSE; Start 09/11/16 at 21: 30 Phenol (Cepastat Lozenge) 1 lozenge Q1H PRN MT SORE THROAT; Start 09/12/16 at 15 :00 YSABEL CORNEJO Sep 12, 2016 15:55
[2016-09-12] MEDS: CEPASTAT LOZENGE MT PRN ×2 (17:36→20:07)
--- NOTE | 2016-09-12 19:13 | CONS ---
Date/Time of Note Date/Time of Note DATE: 09/12/16 TIME: 19:11 Assessment/Plan Assessment/Plan Chief Complaint/Hosp Course L1 chance fracture with . awaiting TLSO- need full brace. Spinal precautions until brace is fitted. Problems: Consultation Date/Type/Reason Admit Date/Time Sep 10, 2016 at 19:04 Initial Consult Date Type of Consultation: Neurosurgery 24 HR Interval Summary Free Text/Dictation Patient still reports low back pain. Denies numbness, tingling, weakness or bowel or bladder issues. Exam/Review of Systems Vital Signs Vitals Vital Signs Date Time Temp Pulse Resp B/P Pulse Ox O2 Delivery O2 Flow Rate FiO2 09/12/16 17:39 98.2 70 20 140/64 95 09/12/16 10:55 2.0 09/10/16 23:10 Room Air Intake and Output 09/11/16 09/11/16 09/12/16 15:00 23:00 07:00 Intake Total 1100 ml 850 ml Balance 1100 ml 850 ml Exam Constitutional: alert, oriented, well developed Psych: no complaints Neurological: [employer]ATIONS [employer] II-XII intact, nl mental status, nl strength Results Result Diagram: 09/12/16 0730 09/12/16 0730 Results 24 hrs Laboratory Tests Test 09/11/16 22:14 09/12/16 07:30 09/12/16 08:06 09/12/16 11:57 Bedside Glucose 108 114 118 Anion Gap 13 Basophils # 0.0 Basophils % 0.3 Blood Morphology Comment Blood Urea Nitrogen 27 H Calcium Level 8.3 L Carbon Dioxide Level 23 Chloride Level 106 Creatinine 0.83 Eosinophils # 0.1 Eosinophils % 1.1 Glucose Level 118 Hematocrit 44.9 Hemoglobin 15.6 Lymphocytes # 1.0 Lymphocytes % 12.0 L Mean Corpuscular Hemoglobin 33.0 Mean Corpuscular Hemoglobin Concent 34.7 Mean Corpuscular Volume 95.2 Mean Platelet Volume 9.0 Monocytes # 0.9 Monocytes % 11.0 Neutrophils # 6.4 Neutrophils % 75.6 Nucleated Red Blood Cells # 0.0 Nucleated Red Blood Cells % 0.0 Platelet Count 142 Potassium Level 4.1 Red Blood Count 4.72 Red Cell Distribution Width 14.9 H Sodium Level 138 White Blood Count 8.4 Test 09/12/16 13:50 09/12/16 16:34 Hepatitis B Core Total Antibody NEGATIVE Hepatitis B Surface Antigen NEGATIVE Hepatitis C Antibody NEGATIVE Bedside Glucose 124 Medications Medications Current Medications Lorazepam (Ativan) 0.5 mg Q6H PRN IV ANXIETY; Start 09/10/16 at 22:30 Ondansetron HCl (Zofran Inj) 4 mg Q6H PRN IV NAUSEA AND/OR VOMITING; Start at 22:30 Acetaminophen (Tylenol Tab) 650 mg Q6H PRN PO PAIN LEVEL 1-3 OR FEVER; Start at 22:30 Oxycodone/ Acetaminophen (Percocet (5/ 325)) 1 tab Q6H PRN PO PAIN LEVEL 4-6 Last administered on 09/12/16 09:36; Admin Dose 1 TAB; Start 09/10/16 at 22:30 Morphine Sulfate (morphine) 2 mg Q4H PRN IV PAIN LEVEL 7-10 Last administered on 09/12/16 17:01; Admin Dose 2 MG; Start 09/10/16 at 22:30 Docusate Sodium (Colace) 100 mg Q12 PO Last administered on 09/12/16 08:38; Admin Dose 100 MG; Start 09/11/16 at 00:30 Heparin Sodium (Porcine) 5000 unit 5,000 unit Q12 SC Last administered on 08:41; Admin Dose 5,000 UNIT; Start 09/11/16 at 09:00 Ciprofloxacin/ Dextrose 200 ml @ 200 mls/hr Q12 IVPB Last administered on 08:38; Admin Dose 200 MLS/HR; Start 09/11/16 at 00:15 Metronidazole (Flagyl 500 Mg (Pmx)) 100 ml @ 100 mls/hr Q8 IVPB Last administered on 09/12/16 13:19; Admin Dose 100 MLS/HR; Start 09/10/16 at 23:15 Influenza Virus Vaccine (Fluzone) 0.5 ml ONCE ONCE IM* ; Start 09/13/16 at 09:00 ; Stop 09/13/16 at 09:01 Diagnostic Test (Pha) (Accucheck) 1 ea 02 XX ; Start 09/12/16 at 02:00 Miscellaneous Information 1 ea NOTE XX ; Start 09/11/16 at 21:30 Glucose (Glutose) 15 gm Q15M PRN PO DECREASED GLUCOSE; Start 09/11/16 at 21:30 Glucose (Glutose) 22.5 gm Q15M PRN PO DECREASED GLUCOSE; Start 09/11/16 at 21:30 Dextrose (D50w Syringe) 25 ml Q15M PRN IV DECREASED GLUCOSE; Start 09/11/16 at 21:30 Dextrose (D50w Syringe) 50 ml Q15M PRN IV DECREASED GLUCOSE; Start 09/11/16 at 21:30 Glucagon (Glucagen) 1 mg Q15M PRN IM DECREASED GLUCOSE; Start 09/11/16 at 21:30 Glucose (Glutose) 15 gm Q15M PRN BUCCAL DECREASED GLUCOSE; Start 09/11/16 at 21: 30 Phenol (Cepastat Lozenge) 1 lozenge Q1H PRN MT SORE THROAT Last administered on 09/12/16t 17:36; Admin Dose 1 LOZENGE; Start 09/12/16 at 15:00 NAVIN MANUEL MD Sep 12, 2016 19:13
--- NOTE | 2016-09-12 19:46 | CONS ---
[facility] INITIAL INPATIENT CONSULTATION NOTE DATE OF CONSULTATION: 09/12/2016 PLACE OF SERVICE: [facility], 5th floor telemetry. IMPRESSION AND PLAN: A very pleasant but unfortunate 81-year-old gentleman with previous history of alcoholism and other comorbidities including diabetes mellitus, psoriasis and a recent fall with lumbar fractures who has been shown to have an incidental 2 to 2.5 cm left lobe of the liver segment II/III lesion which appears to have characteristics of benign entity such as hemangioma but at the same time also has concerning features for malignancy as seen on the ultrasound. My recommendation would be further workup with a liver-dedicated MRI which would hopefully delineate hemangioma and other benign processes from possible malignancy. Even though the alpha-fetoprotein and other tumor markers are low, the possibility of a biopsy should be considered if there are enough findings on the MRI, and the patient otherwise would be a good surgical candidate for laparoscopic left lateral segmentectomy with a reasonably low risk of problems and potential big benefits if this lesion is proven to be a malignancy. At this time, we do not have enough information to make that decision, and I have clearly expressed this to the patient's family. Note that the patient's family was very insistent on keeping the diagnosis somewhat away from the patient for now and have them be the deliverer of news if this was thought to be a malignancy. I answered all their questions to the best of my ability, and they appeared to understand and wished to proceed with the plan. With above assessment, I recommend the followin. Liver-dedicated triple-phase IV contrast MRI of the abdomen. 2. Multidisciplinary Tumor Board presentation. 3. Will follow up after above. Thank you again for allowing us to participate in the care of this very pleasant gentleman and his wonderful family. TOTAL VISIT TIME: 45 minutes, of which more than half was spent in face-to- face discussion with the patient, discussions with his daughter as well as coordination of care between multiple physicians and providers. UPDATED CLINICAL SUMMARY: The patient is a very pleasant 81-year-old gentleman with known comorbid issues including prior alcoholism, diabetes and psoriasis who was admitted through the emergency department at [facility] on 09/10/2016 with back pain and difficulty walking after a fall. CT scan of abdomen and pelvis demonstrated a 2.8 cm peripherally enhancing nodule within left lobe of the liver. COMORBIDITIES: 1. Previous alcohol abuse for approximately 25 years that the patient stopped 35 years ago. 2. Psoriasis. 3. Diabetes mellitus. 4. Back pain. 5. Difficulty walking. DATE OF ADMISSION: 09/10/2016 HISTORY OF PRESENT ILLNESS: The patient is a very pleasant 81-year-old gentleman with the above-mentioned comorbidities and history who we were kindly asked to consult on due to the finding on the liver CT. I had a chance today to meet with the patient and his daughter and do a complete history and physical myself. No abdominal pain. No nausea or vomiting. The appetite is reportedly poor and has been for the last few months. No significant changes in weight. No blood in the stool or urine. ALLERGIES: NO KNOWN DRUG ALLERGIES. HOME MEDICATIONS: None listed. SOCIAL HISTORY: The patient lives with his family. No current alcohol, but previous alcohol abuse reported. Negative sign tobacco. Negative sign for intravenous drug use. FAMILY HISTORY: No reported major medical, surgical or oncologic problems in the family. REVIEW OF SYSTEMS: Other than the above mentioned, there are no other pertinent positives or pertinent negatives in a complete 14-point review of systems. PHYSICAL EXAMINATION: GENERAL: The patient appears to be a very pleasant gentleman of [place] descent from [facility] originally, lying in bed comfortably and in no acute distress. BMI is 20.6. VITAL SIGNS: He is afebrile. Blood pressure 130/58. Pulse 65. Respiratory rate 20. Pulse oximetry 95% on 2 L of nasal cannula. HEENT: Normocephalic and atraumatic. Extraocular muscles and hearing are grossly intact bilaterally and symmetrically. Sclerae are nonicteric. Oral cavity is clear; oral mucosa appeared to be pink and moist. Dentition: fair. NECK: Supple. There is no lymphadenopathy or JVD. There is no submental, submandibular or supraclavicular lymphadenopathy. CHEST: Rises symmetrically with each breath; patient is breathing comfortably. There are no audible wheezes, rales or rhonchi on the gross exam. HEART: HPulse is regular and palpable on the *right wrist. Capillary refill was normal. Carotid pulses are palpable bilaterally and symmetrically in the neck. EXTREMITIES: Lower extremities contain no pitting edema around the ankles bilaterally and symmetrically. ABDOMEN: Soft, nontender and nondistended. There is slight hint of ascites, but there is no caput medusae or engorged subcutaneous veins. There are no peritoneal signs or guarding. SKIN: Appears to be pink and feels warm to touch. NEUROLOGIC: Awake, alert, and follows commands appropriately. LABORATORY VALUES: White blood cell count 8.4, hemoglobin 15.6, platelets 142 and mainly in the 130s to 140s. Electrolytes are normal. CO2 23, creatinine 0.83, total bilirubin 2.2, AST 35, ALT 36. Alkaline phosphatase 160, down from 207. Albumin 3.1 after hydration. Normal lipid panels. Amylase 49, lipase 37. Alpha-fetoprotein 3.4, CEA 2.1, CA 19-9 is 6.3. INR 1.03. Serology is negative for hepatitis B surface antigen and B core antibody. Hepatitis C antibody was negative. IMAGING: Pertinent CT findings were reviewed above. There was also an ultrasound of the liver that appeared to show a mass in the left hepatic lobe measuring 2.9 cm in maximal dimension. Possibility of neoplasm was raised, and correlation with MRI without and with contrast was recommended. Dictated By: SUNIL ARROYO/KEREN Conf#: [id number] DID#: [id number]
[2016-09-13] MEDS: ACCUCHECK XX SCH ×2 (01:02→23:01)
[2016-09-13] MEDS: CEPASTAT LOZENGE MT PRN (02:45)
[2016-09-13] MEDS: metroNIDAZOLE 500 MG/NS (PMX) 100 ML IVPB SCH ×3 (05:46→22:40)
[2016-09-13] MEDS: INSULIN ASPART [NOVOLOG] 3 ML PEN SC SCH ×4 (07:50→21:00)
[2016-09-13] MEDS: DOCUSATE SODIUM 100 MG CAP PO SCH ×2 (08:43→20:28)
[2016-09-13] MEDS: CIPROFLOXACIN 400MG/D5W 200 ML IVPB SCH ×2 (08:43→20:28)
[2016-09-13] MEDS: HEPARIN 5,000 UNIT/0.5 ML SYG SC SCH ×2 (08:45→20:33)
[2016-09-13] MEDS: morphine 2 MG INJ IV PRN (08:47)
[2016-09-13] MEDS ORDERED: INFLUENZA VIRUS VACCINE 0.5 ML (DISPENSING) IM* ONE (09:00)
[2016-09-13 09:04] VITALS: BP 139/65; RESP 19
--- NOTE | 2016-09-13 11:36 | PN ---
Date/Time of Note Date/Time of Note DATE: 09/13/16 TIME: 11:35 Assessment/Plan VTE Prophylaxis VTE Prophylaxis Intervention: heparin Lines/Catheters IV Catheter Type (from Nrs): Saline Lock Urinary Cath still in place: No Assessment/Plan Chief Complaint/Hosp Course 1. Status post mechanical fall with head and Fracture of the lumbar vertebra -plan is for Brace placement, brace delivery is pending -Neurosurgery is following 3. Closed head injury, with a negative head CT finding. 4. Liver nodule with Hx of EtOH abuse -US Abd shows Liver nodule, Hep panel and Tumor markers negative -Consult with Dr Tao appreciated, plan is for MRI Liver 5. Diabetes-A1c at 8.0 -NISS 6. Leukocytosis-resolved PPx- Heparin Problems: Subjective 24 Hr Interval Summary Gastrointestinal: pain Musculoskeletal: back pain Exam/Review of Systems Vital Signs Vitals Vital Signs Date Time Temp Pulse Resp B/P Pulse Ox O2 Delivery O2 Flow Rate FiO2 09/13/16 09:04 98.8 77 19 139/65 95 09/12/16 20:00 2.0 09/10/16 23:10 Room Air Intake and Output 09/12/16 09/12/16 09/13/16 15:00 23:00 07:00 Intake Total 300 ml 440 ml 550 ml Output Total 600 ml Balance 300 ml 440 ml -50 ml Exam Constitutional: alert Respiratory: clear to auscultation Cardiovascular: regular rate and rhythm Gastrointestinal: soft, tender, No distended Musculoskeletal: nl extremities to inspection Results Result Diagram: 09/12/16 0730 09/12/16 0730 Results 24 hrs Laboratory Tests Test 09/12/16 11:57 09/12/16 13:50 09/12/16 16:34 09/12/16 20:06 Bedside Glucose 118 124 129 Hepatitis B Core Total Antibody NEGATIVE Hepatitis B Surface Antigen NEGATIVE Hepatitis C Antibody NEGATIVE Test 09/13/16 08:04 Bedside Glucose 110 Medications Medications Current Medications Lorazepam (Ativan) 0.5 mg Q6H PRN IV ANXIETY; Start 09/10/16 at 22:30 Ondansetron HCl (Zofran Inj) 4 mg Q6H PRN IV NAUSEA AND/OR VOMITING; Start at 22:30 Acetaminophen (Tylenol Tab) 650 mg Q6H PRN PO PAIN LEVEL 1-3 OR FEVER; Start at 22:30 Oxycodone/ Acetaminophen (Percocet (5/ 325)) 1 tab Q6H PRN PO PAIN LEVEL 4-6 Last administered on 09/12/16 20:07; Admin Dose 1 TAB; Start 09/10/16 at 22:30 Morphine Sulfate (morphine) 2 mg Q4H PRN IV PAIN LEVEL 7-10 Last administered on 09/13/16 08:47; Admin Dose 2 MG; Start 09/10/16 at 22:30 Docusate Sodium (Colace) 100 mg Q12 PO Last administered on 09/13/16 08:43; Admin Dose 100 MG; Start 09/11/16 at 00:30 Heparin Sodium (Porcine) 5000 unit 5,000 unit Q12 SC Last administered on 08:45; Admin Dose 5,000 UNIT; Start 09/11/16 at 09:00 Ciprofloxacin/ Dextrose 200 ml @ 200 mls/hr Q12 IVPB Last administered on 08:43; Admin Dose 200 MLS/HR; Start 09/11/16 at 00:15 Metronidazole (Flagyl 500 Mg (Pmx)) 100 ml @ 100 mls/hr Q8 IVPB Last administered on 09/13/16 05:46; Admin Dose 100 MLS/HR; Start 09/10/16 at 23:15 Diagnostic Test (Pha) (Accucheck) 1 ea 02 XX ; Start 09/12/16 at 02:00 Miscellaneous Information 1 ea NOTE XX ; Start 09/11/16 at 21:30 Glucose (Glutose) 15 gm Q15M PRN PO DECREASED GLUCOSE; Start 09/11/16 at 21:30 Glucose (Glutose) 22.5 gm Q15M PRN PO DECREASED GLUCOSE; Start 09/11/16 at 21:30 Dextrose (D50w Syringe) 25 ml Q15M PRN IV DECREASED GLUCOSE; Start 09/11/16 at 21:30 Dextrose (D50w Syringe) 50 ml Q15M PRN IV DECREASED GLUCOSE; Start 09/11/16 at 21:30 Glucagon (Glucagen) 1 mg Q15M PRN IM DECREASED GLUCOSE; Start 09/11/16 at 21:30 Glucose (Glutose) 15 gm Q15M PRN BUCCAL DECREASED GLUCOSE; Start 09/11/16 at 21: 30 Phenol (Cepastat Lozenge) 1 lozenge Q1H PRN MT SORE THROAT Last administered on 09/13/16t 02:45; Admin Dose 5 LOZENGE; Start 09/12/16 at 15:00 YSABEL CORNEJO Sep 13, 2016 11:36
--- NOTE | 2016-09-13 13:35 | PN ---
Date/Time of Note Date/Time of Note DATE: 09/13/16 TIME: 13:35 Assessment/Plan Lines/Catheters IV Catheter Type (from Nrs): Peripheral IV Storey in Place (from Nrs): No Assessment/Plan Assessment/Plan [facility] Progress Note Date of Service: 09/13/2016 Today's Assessment & Plan: Overall stable and doing well. Awaiting MRI to further evaluate liver mass. No indication for acute surgical intervention. Discussed with patient and family. With above assessment, I've recommended the following for today: 1. Liver dedicated MRI 2. We'll follow after above Thank you again for your great care of this very pleasant young lady and her wonderful family. If there are any questions, please feel free to call me at . TOTAL VISIT TIME: 20 minutes of which more than half was spent in [id number] discussion with the patient as well as coordination of care between multiple physicians and providers. Disclaimer: Inadvertent spelling and grammatical errors are likely due to EHR/ dictation software use and do not reflect on the quality of delivered patient care. Also, please note that the electronic time recorded on this node does not necessarily reflect the actual time of the visit. UPDATED CLINICAL SUMMARY: The patient is a very pleasant 81-year-old gentleman with known comorbid issues including prior alcoholism, diabetes and psoriasis who was admitted through the emergency department at [facility] on 09/10/2016 with back pain and difficulty walking after a fall. CT scan of abdomen and pelvis demonstrated a 2.8 cm peripherally enhancing nodule within left lobe of the liver. COMORBIDITIES: 1. Previous alcohol abuse for approximately 25 years that the patient stopped 35 years ago. 2. Psoriasis. 3. Diabetes mellitus. 4. Back pain. 5. Difficulty walking. Subjective: No major events or complaints; no major abd pain and under control with medications; no n/v/d; no sob or cp; + flatus; + BM and normal; + activity Objective: Vitals: See below I's & O's: See below Exam: GENERAL: On exam, the patient was lying in bed and appeared to be comfortable and in no acute distress. ABDOMEN: Soft, nontender and nondistended. There are no peritoneal signs or guarding. SKIN: Skin appears to be pink and feels warm to touch. NEUROLOGIC: Patient is awake, alert, and follows commands appropriately. Labs: See below Exam/Review of Systems Vital Signs Vitals Vital Signs Date Time Temp Pulse Resp B/P Pulse Ox O2 Delivery O2 Flow Rate FiO2 09/13/16 09:04 98.8 77 19 139/65 95 09/13/16 08:00 3.0 09/10/16 23:10 Room Air Intake and Output 09/12/16 09/12/16 09/13/16 15:00 23:00 07:00 Intake Total 300 ml 440 ml 550 ml Output Total 600 ml Balance 300 ml 440 ml -50 ml Results Result Diagram: 09/12/16 0730 09/12/16 0730 SUNIL MACKEY M.D. Sep 13, 2016 13:35
[2016-09-13] MEDS: SOD CHLORIDE 0.45% 1,000 ML IV SCH (16:34)
--- NOTE | 2016-09-13 17:45 | RADRPT ---
AMENDMENT: 09/13/2016 5:51:09 PM Sigifredo Salvador M.D RPTAT: HPNM PROCEDURE: MR Abdomen. CLINICAL INDICATION: Abdominal pain TECHNIQUE: Multiplanar MRI of the abdomen was performed without the administration of intravenous Gadolinium. prior to and following the intravenous administration of 10 cc of ProHance. Exam was per formed in the noncontrast, arterial, portal venous, equilibrium, and delayed phases. COMPARISON: CT of the abdomen and pelvis 09/10/2016 FINDINGS: The liver service is slightly nodular. The liver morphology is abnormal enlargement of the caudate l obe and lateral segment of the left hepatic lobe. A round focal enhancing lesion in the left hepati c lobe is seen on arterial phase which demonstrate rapid washout on the portal venous phase. The le ft hepatic lobe mass measures approximate 2.2 cm in size. No other definite liver lesions are seen. The portal vein is patent. The portal vein is normal in caliber. The hepatic vein is patent. The gallbladder is contracted. There are no internal signal voids to suggest the presence of cholel ithiasis. There is no gallbladder wall thickening or pericholecystic fluid. There is no intrahepat ic or extrahepatic biliary duct dilatation. The pancreas and adrenal glands are unremarkable. The kidneys are symmetric in size and homogeneous in signal intensity and enhancement. There is no hydronephrosis or abnormal perinephric inflammation. The abdominal aorta is atherosclerotic. There is no periaortic / retroperitoneal lymphadenopathy. The stomach and visualized small large intestines are unremarkable. There are no focal inflammatory changes of the mesentery. There is no mesenteric lymphadenopathy. There is no ascites. There are no bone marrow signal abnormalities. Subcutaneous soft tissues are unremarkable. Bibasila r atelectasis is suggested. IMPRESSION: 1. Abnormal liver morphology with a nodular surface, the findings which are consistent with cirrhos is. 2. Focal arterial enhancing mass in the left hepatic lobe lesion in the setting of chronic liver di sease is worrisome for a basilar carcinoma. Further evaluation with tissue diagnosis is recommended . RPTAT: HLST Physician Pippa Date Time Electronically viewed and signed by Physician Pippa on 09/13/2016 17:51 /
[2016-09-13] MEDS: MAGNESIUM HYDROXIDE 30ML CUP PO PRN (20:27)
[2016-09-13] MEDS: SENNA TAB PO SCH (20:29)
[2016-09-13] MEDS ORDERED: DOCUSATE SODIUM 100 MG CAP PO SCH (21:00)
[2016-09-13 21:31] VITALS: BP_SYST 136; BP_SYST 159; BP_DIAS 64; BP_DIAS 73; RESP 17; RESP 20
--- NOTE | 2016-09-13 22:24 | CONS ---
Date/Time of Note Date/Time of Note DATE: 09/13/16 TIME: 22:22 Assessment/Plan Assessment/Plan Chief Complaint/Hosp Course L1 chance fracture with . awaiting TLSO- need full brace. Spinal precautions/ bedrest until brace is fitted. Upright x-rays once in brace. Problems: Consultation Date/Type/Reason Admit Date/Time Sep 10, 2016 at 19:04 Type of Consultation: Neurosurgery 24 HR Interval Summary Free Text/Dictation Patient without new complaints. Reports low back pain. denies weakness, numbness , tingling, bowel or bladder issues.. Exam/Review of Systems Vital Signs Vitals Vital Signs Date Time Temp Pulse Resp B/P Pulse Ox O2 Delivery O2 Flow Rate FiO2 09/13/16 21:31 97.8 84 20 136/64 97 09/13/16 21:00 Nasal Cannula 2.0 Intake and Output 09/12/16 09/12/16 09/13/16 15:00 23:00 07:00 Intake Total 300 ml 440 ml 550 ml Output Total 600 ml Balance 300 ml 440 ml -50 ml Exam Constitutional: alert, oriented, well developed Neurological: [employer] II-XII intact, DTR's symmetric, nl mental status, nl speech, nl strength, other Results Result Diagram: 09/12/16 0730 09/12/16 0730 Results 24 hrs Laboratory Tests Test 09/13/16 08:04 09/13/16 12:32 09/13/16 17:29 09/13/16 20:13 Bedside Glucose 110 131 112 133 Medications Medications Current Medications Lorazepam (Ativan) 0.5 mg Q6H PRN IV ANXIETY; Start 09/10/16 at 22:30 Ondansetron HCl (Zofran Inj) 4 mg Q6H PRN IV NAUSEA AND/OR VOMITING; Start at 22:30 Acetaminophen (Tylenol Tab) 650 mg Q6H PRN PO PAIN LEVEL 1-3 OR FEVER; Start at 22:30 Oxycodone/ Acetaminophen (Percocet (5/ 325)) 1 tab Q6H PRN PO PAIN LEVEL 4-6 Last administered on 09/12/16t 20:07; Admin Dose 1 TAB; Start 09/10/16 at 22:30 Morphine Sulfate (morphine) 2 mg Q4H PRN IV PAIN LEVEL 7-10 Last administered on 09/13/16 08:47; Admin Dose 2 MG; Start 09/10/16 at 22:30 Docusate Sodium (Colace) 100 mg Q12 PO Last administered on 09/13/16 20:28; Admin Dose 100 MG; Start 09/11/16 at 00:30 Heparin Sodium (Porcine) 5000 unit 5,000 unit Q12 SC Last administered on 20:33; Admin Dose 5,000 UNIT; Start 09/11/16 at 09:00 Ciprofloxacin/ Dextrose 200 ml @ 200 mls/hr Q12 IVPB Last administered on 20:28; Admin Dose 200 MLS/HR; Start 09/11/16 at 00:15 Metronidazole (Flagyl 500 Mg (Pmx)) 100 ml @ 100 mls/hr Q8 IVPB Last administered on 09/13/16 16:34; Admin Dose 100 MLS/HR; Start 09/10/16 at 23:15 Diagnostic Test (Pha) (Accucheck) 1 ea 02 XX ; Start 09/12/16 at 02:00 Miscellaneous Information 1 ea NOTE XX ; Start 09/11/16 at 21:30 Glucose (Glutose) 15 gm Q15M PRN PO DECREASED GLUCOSE; Start 09/11/16 at 21:30 Glucose (Glutose) 22.5 gm Q15M PRN PO DECREASED GLUCOSE; Start 09/11/16 at 21:30 Dextrose (D50w Syringe) 25 ml Q15M PRN IV DECREASED GLUCOSE; Start 09/11/16 at 21:30 Dextrose (D50w Syringe) 50 ml Q15M PRN IV DECREASED GLUCOSE; Start 09/11/16 at 21:30 Glucagon (Glucagen) 1 mg Q15M PRN IM DECREASED GLUCOSE; Start 09/11/16 at 21:30 Glucose (Glutose) 15 gm Q15M PRN BUCCAL DECREASED GLUCOSE; Start 09/11/16 at 21: 30 Phenol 1 lozenge 1 lozenge Q1H PRN MT SORE THROAT Last administered on 02:45; Admin Dose 5 LOZENGE; Start 09/12/16 at 15:00 Sodium Chloride (1/2 NS) 1,000 ml @ 75 mls/hr [id number] IV Last administered on 09/13/16 16:34; Admin Dose 75 MLS/HR; Start 09/13/16 at 16:30 Senna (Senokot) 1 tab BID PO Last administered on 09/13/16 20:29; Admin Dose 1 TAB; Start 09/13/16 at 21:00 Magnesium Hydroxide (Milk Of Mag) 30 ml DAILY PRN PO CONSTIPATION Last administered on 09/13/16 20:27; Admin Dose 30 ML; Start 09/13/16 at 16:30 Influenza Virus Vaccine (Fluzone) 0.5 ml ONCE ONCE IM* ; Start 09/14/16 at 09:00 ; Stop 09/14/16 at 09:01 NAVIN MANUEL MD Sep 13, 2016 22:24
[2016-09-14] MEDS: metroNIDAZOLE 500 MG/NS (PMX) 100 ML IVPB SCH ×3 (05:45→22:56)
[2016-09-14] MEDS: SOD CHLORIDE 0.45% 1,000 ML IV SCH ×2 (05:46→15:11)
[2016-09-14 07:00] VITALS: BP 139/67; RESP 20
[2016-09-14] MEDS: INSULIN ASPART [NOVOLOG] 3 ML PEN SC SCH ×4 (07:50→21:00)
[2016-09-14] MEDS ORDERED: INFLUENZA VIRUS VACCINE 0.5 ML (DISPENSING) IM* ONE (09:00)
--- NOTE | 2016-09-14 09:12 | PN ---
Date/Time of Note Date/Time of Note DATE: 09/14/16 TIME: 09:07 Assessment/Plan VTE Prophylaxis VTE Prophylaxis Intervention: heparin Lines/Catheters IV Catheter Type (from [facility]): Peripheral IV Urinary Cath still in place: No Assessment/Plan Assessment/Plan PROBLEMS: Status post mechanical fall with head and L1 Fracture * s/p bracse delivery * Neurosurgery is following Closed head injury, with a negative head CT finding. Liver cirrhosis with L hepatic lobe nodule concerning for Carcinoma * -Hep C negative / ?biopsy / f/u surgical plan 5. Diabetes type 2 -A1c at 8.0 : controlled with diet and NISS only 6. Leukocytosis-resolved 7. Groin rash likely tinea cruris * add IV antifungals d/t severity 8. Colitis / Duodenitis : continue IV abx 9. R sided atelectasis and effusion r/o pnemonia (?aspiration) : CXR PPx- Heparin Subjective 24 Hr Interval Summary Free Text/Dictation Patient seen and examined. Daughter notes: constipation Neuropathic pain R LE groin rash productive cough Exam/Review of Systems Vital Signs Vitals Vital Signs Date Time Temp Pulse Resp B/P Pulse Ox O2 Delivery O2 Flow Rate FiO2 09/14/16 07:00 97.9 67 20 139/67 97 09/13/16 21:00 Nasal Cannula 2.0 Intake and Output 09/13/16 09/13/16 09/14/16 15:00 23:00 07:00 Intake Total 200 ml 270 ml 1050 ml Balance 200 ml 270 ml 1050 ml Exam Constitutional: alert Respiratory: reduced breath sounds, coarse loud crackles in upper airway Cardiovascular: regular rate and rhythm Gastrointestinal: soft, tender, No distended Genitourinary: erythematous , extensive macular rash in groin with erythematous skin over testicles Musculoskeletal: nl extremities to inspection Skin: psoriatic lesions on abd and thigh Results Result Diagram: 09/12/16 0730 09/12/16 0730 Results 24 hrs Laboratory Tests Test 09/13/16 12:32 09/13/16 17:29 09/13/16 20:13 09/14/16 07:59 Bedside Glucose 131 112 133 113 Medications Medications Current Medications Lorazepam (Ativan) 0.5 mg Q6H PRN IV ANXIETY; Start 09/10/16 at 22:30 Ondansetron HCl (Zofran Inj) 4 mg Q6H PRN IV NAUSEA AND/OR VOMITING; Start at 22:30 Acetaminophen (Tylenol Tab) 650 mg Q6H PRN PO PAIN LEVEL 1-3 OR FEVER; Start at 22:30 Oxycodone/ Acetaminophen (Percocet (5/ 325)) 1 tab Q6H PRN PO PAIN LEVEL 4-6 Last administered on 09/12/16 20:07; Admin Dose 1 TAB; Start 09/10/16 at 22:30 Morphine Sulfate (morphine) 2 mg Q4H PRN IV PAIN LEVEL 7-10 Last administered on 09/13/16 08:47; Admin Dose 2 MG; Start 09/10/16 at 22:30 Docusate Sodium (Colace) 100 mg Q12 PO Last administered on 09/13/16 20:28; Admin Dose 100 MG; Start 09/11/16 at 00:30 Heparin Sodium (Porcine) 5000 unit 5,000 unit Q12 SC Last administered on 20:33; Admin Dose 5,000 UNIT; Start 09/11/16 at 09:00 Ciprofloxacin/ Dextrose 200 ml @ 200 mls/hr Q12 IVPB Last administered on 20:28; Admin Dose 200 MLS/HR; Start 09/11/16 at 00:15 Metronidazole (Flagyl 500 Mg (Pmx)) 100 ml @ 100 mls/hr Q8 IVPB Last administered on 09/14/16 05:45; Admin Dose 100 MLS/HR; Start 09/10/16 at 23:15 Diagnostic Test (Pha) (Accucheck) 1 ea 02 XX ; Start 09/12/16 at 02:00 Miscellaneous Information 1 ea NOTE XX ; Start 09/11/16 at 21:30 Glucose (Glutose) 15 gm Q15M PRN PO DECREASED GLUCOSE; Start 09/11/16 at 21:30 Glucose (Glutose) 22.5 gm Q15M PRN PO DECREASED GLUCOSE; Start 09/11/16 at 21:30 Dextrose (D50w Syringe) 25 ml Q15M PRN IV DECREASED GLUCOSE; Start 09/11/16 at 21:30 Dextrose (D50w Syringe) 50 ml Q15M PRN IV DECREASED GLUCOSE; Start 09/11/16 at 21:30 Glucagon (Glucagen) 1 mg Q15M PRN IM DECREASED GLUCOSE; Start 09/11/16 at 21:30 Glucose (Glutose) 15 gm Q15M PRN BUCCAL DECREASED GLUCOSE; Start 09/11/16 at 21: 30 Phenol 1 lozenge 1 lozenge Q1H PRN MT SORE THROAT Last administered on 02:45; Admin Dose 5 LOZENGE; Start 09/12/16 at 15:00 Sodium Chloride (1/2 NS) 1,000 ml @ 75 mls/hr [id number] IV Last administered on 09/14/16 05:46; Admin Dose 75 MLS/HR; Start 09/13/16 at 16:30 Senna (Senokot) 1 tab BID PO Last administered on 09/13/16 20:29; Admin Dose 1 TAB; Start 09/13/16 at 21:00 Magnesium Hydroxide (Milk Of Mag) 30 ml DAILY PRN PO CONSTIPATION Last administered on 09/13/16 20:27; Admin Dose 30 ML; Start 09/13/16 at 16:30 Procedures Procedures PROCEDURE: MR Abdomen. CLINICAL INDICATION: Abdominal pain TECHNIQUE: Multiplanar MRI of the abdomen was performed without the administration of intravenous Gadolinium. prior to and following the intravenous administration of 10 cc of ProHance. Exam was performed in the noncontrast, arterial, portal venous, equilibrium, and delayed phases. COMPARISON: CT of the abdomen and pelvis 09/10/2016 FINDINGS: The liver service is slightly nodular. The liver morphology is abnormal enlargement of the caudate lobe and lateral segment of the left hepatic lobe. A round focal enhancing lesion in the left hepatic lobe is seen on arterial phase which demonstrate rapid washout on the portal venous phase. The left hepatic lobe mass measures approximate 2.2 cm in size. No other definite liver lesions are seen. The portal vein is patent. The portal vein is normal in caliber. The hepatic vein is patent. The gallbladder is contracted. There are no internal signal voids to suggest the presence of cholelithiasis. There is no gallbladder wall thickening or pericholecystic fluid. There is no intrahepatic or extrahepatic biliary duct dilatation. The pancreas and adrenal glands are unremarkable. The kidneys are symmetric in size and homogeneous in signal intensity and enhancement. There is no hydronephrosis or abnormal perinephric inflammation. The abdominal aorta is atherosclerotic. There is no periaortic / retroperitoneal lymphadenopathy. The stomach and visualized small large intestines are unremarkable. There are no focal inflammatory changes of the mesentery. There is no mesenteric lymphadenopathy. There is no ascites. There are no bone marrow signal abnormalities. Subcutaneous soft tissues are unremarkable. Bibasilar atelectasis is suggested. IMPRESSION: 1. Abnormal liver morphology with a nodular surface, the findings which are consistent with cirrhosis. 2. Focal arterial enhancing mass in the left hepatic lobe lesion in the setting of chronic liver disease is worrisome for a basilar carcinoma. Further evaluation with tissue diagnosis is recommended. RPTAT: HLST Physician Pippa Date Time Electronically viewed and signed by Physician Pippa on 09/13/2016 17 :51 / CC: SUNIL MACKEY M.D., [place] M. Sep 14, 2016 09:12
[2016-09-14] MEDS: CIPROFLOXACIN 400MG/D5W 200 ML IVPB SCH ×2 (09:18→20:58)
[2016-09-14] MEDS: SENNA TAB PO SCH ×2 (09:18→20:58)
[2016-09-14] MEDS: DOCUSATE SODIUM 100 MG CAP PO SCH ×2 (09:18→20:58)
[2016-09-14] MEDS: HEPARIN 5,000 UNIT/0.5 ML SYG SC SCH ×2 (09:20→20:56)
--- NOTE | 2016-09-14 14:41 | PN ---
Date/Time of Note Date/Time of Note DATE: 09/14/16 TIME: 14:38 Assessment/Plan Lines/Catheters IV Catheter Type (from Nrs): Peripheral IV Storey in Place (from Nrs): No Assessment/Plan Assessment/Plan [facility] Progress Note Date of Service: 09/14/2016 Today's Assessment & Plan: Overall stable and doing well. Liver MRI shows enough worrisome features to warrant recommendation for surgical resection. Given the location of this mass, the patient may be eligible for a laparoscopic left lateral lobectomy of the liver which should be fairly well-tolerated even though the patient has baseline liver disease. I explained this to the patient's daughter but did not explain this to the patient himself as requested by the patient's family. Currently there is no indication for acute surgical intervention while he is recovering from his fall. Patient can be discharged home once medically stable and with plan on scheduling the patient for an outpatient visit in my office where we will consent the patient and family for this operation, which we hope to do in the next 2-3 weeks. With above assessment, I've recommended the following for today: 1. Continue current cares 2. Discharge home when medically stabilized 3. Outpatient visit [facility] 4. Schedule for elective laparoscopic, possible open left lateral hepatectomy with intraoperative ultrasound Thank you again for your great care of this very pleasant gentleman and his wonderful family. If there are any questions, please feel free to call me at . TOTAL VISIT TIME: 20 minutes of which more than half was spent in [id number] discussion with the patient as well as coordination of care between multiple physicians and providers. Disclaimer: Inadvertent spelling and grammatical errors are likely due to EHR/ dictation software use and do not reflect on the quality of delivered patient care. Also, please note that the electronic time recorded on this node does not necessarily reflect the actual time of the visit. UPDATED CLINICAL SUMMARY: The patient is a very pleasant 81-year-old gentleman with known comorbid issues including prior alcoholism, diabetes and psoriasis who was admitted through the emergency department at [facility] on 09/10/2016 with back pain and difficulty walking after a fall. CT scan of abdomen and pelvis demonstrated a 2.8 cm peripherally enhancing nodule within left lobe of the liver. Liver dedicated MRI of the abdomen on 09/13/2016 confirmed presence of this mass and showed worrisome features for hepatocellular carcinoma. COMORBIDITIES: 1. Previous alcohol abuse for approximately 25 years that the patient stopped 35 years ago. 2. Psoriasis. 3. Diabetes mellitus. 4. Back pain. 5. Difficulty walking. Subjective: No major events or complaints; no major abd pain and under control with medications; no n/v/d; no sob or cp; + flatus; + BM and normal; + activity Objective: Vitals: See below I's & O's: See below Exam: GENERAL: On exam, the patient was lying in bed and appeared to be comfortable and in no acute distress. ABDOMEN: Soft, nontender and nondistended. There are no peritoneal signs or guarding. SKIN: Skin appears to be pink and feels warm to touch. NEUROLOGIC: Patient is awake, alert, and follows commands appropriately. Labs: See below Exam/Review of Systems Vital Signs Vitals Vital Signs Date Time Temp Pulse Resp B/P Pulse Ox O2 Delivery O2 Flow Rate FiO2 09/14/16 07:00 97.9 67 20 139/67 97 09/13/16 21:00 Nasal Cannula 2.0 Intake and Output 09/13/16 09/13/16 09/14/16 15:00 23:00 07:00 Intake Total 200 ml 270 ml 1050 ml Balance 200 ml 270 ml 1050 ml Results Result Diagram: 09/12/1672909/12/16729 SUNIL MACKEY M.D. Sep 14, 2016 14:41
[2016-09-14] MEDS: OXYCODONE/ACETAMINOPHEN (5/325) TAB PO PRN (15:31)
[2016-09-14] MEDS ORDERED: INFLUENZA VIRUS VACCINE 0.5 ML SYG IM* ONE (16:30)
[2016-09-14] MEDS: KETOROLAC 15 MG INJ IV SCH ×2 (16:42→23:50)
[2016-09-14] MEDS: FLUCONAZOLE 200 MG/NS (PMX) 100 ML IVPB SCH (17:39)
--- NOTE | 2016-09-14 17:54 | RADRPT ---
PROCEDURE: XR Chest. CLINICAL INDICATION: Productive cough. TECHNIQUE: Portable AP upright view of the chest was obtained. COMPARISON: 09/10/2016 FINDINGS: The cardiomediastinal silhouette is enlarged. Right lower lobe consolidation appears worse concerni ng for pneumonia given the provided history. Blunting of the right costophrenic angle cannot exclud e a small parapneumonic effusion. No left pleural effusion is present in the pulmonary vasculature is within limits of normal. Senescent changes of the lungs are again noted. The osseous structures are intact with no evidence for acute abnormality. Calcification is again visible within the aorta. RPTAT:HJJR IMPRESSION: 1. Interval increase in right lower lobe consolidation unable to exclude pneumonia with a small par apneumonic effusion given the provided history. 2. Mild cardiomegaly without radiographic evidence of congestive heart failure. 3. Aortic atherosclerosis is present. Physician Zechariah Date Time Electronically viewed and signed by Physician Zechariah on 09/14/2016 17:53 /
[2016-09-14 19:23] VITALS: BP 139/63; RESP 16
[2016-09-14] MEDS: ALBUTEROL/IPRATROPIUM (NEB) 3 ML AMP HHN SCH (20:20)
[2016-09-14] MEDS: ACETYLCYSTEINE 20% 4 ML VIAL NEB SCH (20:20)
[2016-09-14] MEDS: GUAIFENESIN LA 600 MG TABSR PO SCH (20:58)
[2016-09-15] MEDS: ACCUCHECK XX SCH (01:00)
[2016-09-15] MEDS: ALBUTEROL/IPRATROPIUM (NEB) 3 ML AMP HHN PRN ×2 (01:36→21:18)
[2016-09-15] MEDS: ACETYLCYSTEINE 20% 4 ML VIAL NEB SCH ×3 (01:36→14:55)
[2016-09-15] MEDS: OXYCODONE/ACETAMINOPHEN (5/325) TAB PO PRN ×2 (01:55→09:55)
[2016-09-15] MEDS: KETOROLAC 15 MG INJ IV SCH ×4 (05:08→23:54)
[2016-09-15] MEDS: metroNIDAZOLE 500 MG/NS (PMX) 100 ML IVPB SCH ×3 (05:08→22:38)
[2016-09-15 06:04] LABS: POTASSIUM 3.6 mmol/L (3.5-5.1)
[2016-09-15 06:05] LABS: BASOPHILS % 0.3 % (0.0-2.0); EOSINOPHILS # 0.2 10^3/ul (0.0-0.5); EOSINOPHILS % 2.5 % (0.0-7.0); HEMOGLOBIN 15.1 g/dl (14.0-18.0); LYMPHOCYTES # 1.4 10^3/ul (0.8-2.9); LYMPHOCYTES % 15.2 % (15.0-51.0); MEAN CORPUSCULAR HEMOGLOBIN 32.6 pg (29.0-33.0); MEAN CORPUSCULAR HGB CONC 33.7 g/dl (32.0-37.0); MEAN CORPUSCULAR VOLUME 96.8 fl (82.0-101.0); MEAN PLATELET VOLUME 8.5 fl (7.4-10.4); MONOCYTE # 1.1 10^3/ul (0.3-0.9); MONOCYTES % 12.4 % (0.0-11.0); NEUTROPHIL # 6.2 10^3/ul (1.6-7.5); NEUTROPHILS % 69.6 % (39.0-77.0); PLATELET COUNT 173 10^3/UL (140-440); RED BLOOD COUNT 4.65 10^6/ul (4.70-6.10); RED CELL DISTRIBUTION WIDTH 14.9 % (11.5-14.5)
[2016-09-15 06:06] LABS: CREATININE 0.81 mg/dl (0.61-1.24)
[2016-09-15 06:07] LABS: CALCIUM 8.4 mg/dl (8.4-10.2)
[2016-09-15 06:08] VITALS: BP 126/62; PULSE 69; RESP 20
[2016-09-15 06:25] LABS: CONDITION 1; LH ANALYZER COMMENTS 1
[2016-09-15] MEDS: INSULIN ASPART [NOVOLOG] 3 ML PEN SC SCH ×4 (07:57→21:00)
[2016-09-15 08:00] VITALS: BP 157/84; PULSE 84; RESP 18
[2016-09-15 08:04] VITALS: BP 157/70; RESP 18
[2016-09-15] MEDS: ALBUTEROL/IPRATROPIUM (NEB) 3 ML AMP HHN SCH ×2 (08:53→14:55)
[2016-09-15] MEDS: DOCUSATE SODIUM 100 MG CAP PO SCH ×2 (09:40→20:56)
[2016-09-15] MEDS: SENNA TAB PO SCH ×2 (09:40→20:56)
[2016-09-15] MEDS: CIPROFLOXACIN 400MG/D5W 200 ML IVPB SCH (09:41)
[2016-09-15] MEDS: HEPARIN 5,000 UNIT/0.5 ML SYG SC SCH ×2 (09:43→21:12)
--- NOTE | 2016-09-15 09:43 | CONS ---
Date/Time of Note Date/Time of Note DATE: 09/15/16 TIME: 09:38 Assessment/Plan Assessment/Plan Chief Complaint/Hosp Course L1 chance fracture with . TLSO brace fitter. UP x-rays in brace. PT/OT. Has MRI liver but visualized thoracolumbar spine well and no evidence of subluxation or stenosis at level of fracture. Brace for 3 months then re-assess with imaging. Problems: Consultation Date/Type/Reason Admit Date/Time Sep 10, 2016 at 19:04 Type of Consultation: Neurosurgery 24 HR Interval Summary Free Text/Dictation Patient stable. Reports LBP better better. Has brace. Exam/Review of Systems Vital Signs Vitals Vital Signs Date Time Temp Pulse Resp B/P Pulse Ox O2 Delivery O2 Flow Rate FiO2 09/15/16 08:54 62 20 89 21 09/15/16 08:04 97.4 157/70 09/15/16 06:44 Nasal Cannula 2.0 Intake and Output 09/14/16 09/14/16 09/15/16 15:00 23:00 07:00 Intake Total 200 ml 1630 ml 1600 ml Output Total 1150 ml Balance 200 ml 1630 ml 450 ml Exam Constitutional: alert, well developed Musculoskeletal: nl extremities to inspection Neurological: INTAKE MANAGER II-XII intact, nl mental status, nl speech, nl strength Results Result Diagram: 09/15/163 09/15/16 0443 Results 24 hrs Laboratory Tests Test 09/14/16 12:09 09/14/16 17:57 09/14/16 20:03 09/15/16 04:43 Bedside Glucose 116 142 131 Anion Gap 15 Basophils # 0.0 Basophils % 0.3 Blood Morphology Comment Blood Urea Nitrogen 25 H Calcium Level 8.4 Carbon Dioxide Level 25 Chloride Level 102 Creatinine 0.81 Eosinophils # 0.2 Eosinophils % 2.5 Glucose Level 109 Hematocrit 45.0 Hemoglobin 15.1 Lymphocytes # 1.4 Lymphocytes % 15.2 Magnesium Level 2.0 Mean Corpuscular Hemoglobin 32.6 Mean Corpuscular Hemoglobin Concent 33.7 Mean Corpuscular Volume 96.8 Mean Platelet Volume 8.5 Monocytes # 1.1 H Monocytes % 12.4 H Neutrophils # 6.2 Neutrophils % 69.6 Nucleated Red Blood Cells # 0.0 Nucleated Red Blood Cells % 0.0 Platelet Count 173 # Potassium Level 3.6 Red Blood Count 4.65 L Red Cell Distribution Width 14.9 H Sodium Level 138 White Blood Count 9.0 Test 09/15/16 07:36 Bedside Glucose 110 Medications Medications Current Medications Lorazepam (Ativan) 0.5 mg Q6H PRN IV ANXIETY; Start 09/10/16 at 22:30 Ondansetron HCl (Zofran Inj) 4 mg Q6H PRN IV NAUSEA AND/OR VOMITING; Start at 22:30 Acetaminophen (Tylenol Tab) 650 mg Q6H PRN PO PAIN LEVEL 1-3 OR FEVER; Start at 22:30 Oxycodone/ Acetaminophen (Percocet (5/ 325)) 1 tab Q6H PRN PO PAIN LEVEL 4-6 Last administered on 09/15/16 01:55; Admin Dose 1 TAB; Start 09/10/16 at 22:30 Morphine Sulfate (morphine) 2 mg Q4H PRN IV PAIN LEVEL 7-10 Last administered on 09/13/16 08:47; Admin Dose 2 MG; Start 09/10/16 at 22:30 Docusate Sodium (Colace) 100 mg Q12 PO Last administered on 09/14/16 20:58; Admin Dose 100 MG; Start 09/11/16 at 00:30 Heparin Sodium (Porcine) 5000 unit 5,000 unit Q12 SC Last administered on 20:56; Admin Dose 5,000 UNIT; Start 09/11/16 at 09:00 Ciprofloxacin/ Dextrose 200 ml @ 200 mls/hr Q12 IVPB Last administered on 20:58; Admin Dose 200 MLS/HR; Start 09/11/16 at 00:15 Metronidazole (Flagyl 500 Mg (Pmx)) 100 ml @ 100 mls/hr Q8 IVPB Last administered on 09/15/16 05:08; Admin Dose 100 MLS/HR; Start 09/10/16 at 23:15 Diagnostic Test (Pha) (Accucheck) 1 ea 02 XX ; Start 09/12/16 at 02:00 Miscellaneous Information 1 ea NOTE XX ; Start 09/11/16 at 21:30 Glucose (Glutose) 15 gm Q15M PRN PO DECREASED GLUCOSE; Start 09/11/16 at 21:30 Glucose (Glutose) 22.5 gm Q15M PRN PO DECREASED GLUCOSE; Start 09/11/16 at 21:30 Dextrose (D50w Syringe) 25 ml Q15M PRN IV DECREASED GLUCOSE; Start 09/11/16 at 21:30 Dextrose (D50w Syringe) 50 ml Q15M PRN IV DECREASED GLUCOSE; Start 09/11/16 at 21:30 Glucagon (Glucagen) 1 mg Q15M PRN IM DECREASED GLUCOSE; Start 09/11/16 at 21:30 Glucose (Glutose) 15 gm Q15M PRN BUCCAL DECREASED GLUCOSE; Start 09/11/16 at 21: 30 Phenol 1 lozenge 1 lozenge Q1H PRN MT SORE THROAT Last administered on 02:45; Admin Dose 5 LOZENGE; Start 09/12/16 at 15:00 Sodium Chloride (1/2 NS) 1,000 ml @ 75 mls/hr [id number] IV Last administered on 09/14/16 15:11; Admin Dose 75 MLS/HR; Start 09/13/16 at 16:30 Senna (Senokot) 1 tab BID PO Last administered on 09/14/16 20:58; Admin Dose 1 TAB; Start 09/13/16 at 21:00 Magnesium Hydroxide 30 ml 30 ml DAILY PRN PO CONSTIPATION Last administered on 09/13/16 20:27; Admin Dose 30 ML; Start 09/13/16 at 16:30 Fluconazole (Diflucan 200 Mg/ NS (Pmx)) 100 ml @ 100 mls/hr Q24H IVPB Last administered on 09/14/16 17:39; Admin Dose 100 MLS/HR; Start 09/14/16 at 17:00 Ketorolac Tromethamine (Toradol) 15 mg Q6 IV Last administered on 09/15/16 05: 08; Admin Dose 15 MG; Start 09/14/16 at 16:30; Stop 09/17/16 at 16:29 Guaifenesin (Mucinex) 600 mg BID PO Last administered on 09/14/16 20:58; Admin Dose 600 MG; Start 09/14/16 at 21:00 NAVIN MANUEL MD Sep 15, 2016 09:42
[2016-09-15] MEDS: GUAIFENESIN LA 600 MG TABSR PO SCH ×2 (09:47→20:56)
[2016-09-15] MEDS: SOD CHLORIDE 0.45% 1,000 ML IV SCH ×2 (09:48→20:57)
--- NOTE | 2016-09-15 12:09 | RADRPT ---
PROCEDURE: XR Lumbar Spine. CLINICAL INDICATION: Back pain. TECHNIQUE: AP, lateral and cone-down lateral view of the lumbar spine were obtained. COMPARISON: CT scan abdomen pelvis 09/10/2016. FINDINGS: There are vertical osteophytes. There is a chance fracture to the upper third of the body of L1. F racture fragments are stable in anatomically aligned. There is endplate softening there is of the s uperior plate softening of L1, L2, L3 and L4. There is disk space narrowing at L4-5 and L5-S1. The re are vascular calcifications in the lower abdominal aorta. The neural canal is normal in size. T here is straightening of the lumbar curvature. IMPRESSION: 1. Ankylosing spondylitis of the lower thoracic and lumbar spine with moderate disk space narrowing at L4-5 and L5-S1. 2. Nondisplaced stable appearing L1 chance fracture involving the upper third of the body of L1. N o new callus formation is identified to confirm healing. 3. Atherosclerotic vascular disease. 4. Findings were phoned to the floor to Dada Lozano. A read back was performed. RPTAT:AAJJ Physician Eva Date Time Electronically viewed and signed by Physician Eva on 09/15/2016 12:09 /
--- NOTE | 2016-09-15 13:21 | PN ---
Date/Time of Note Date/Time of Note DATE: 09/15/16 TIME: 13:20 Assessment/Plan Lines/Catheters IV Catheter Type (from Nrs): Peripheral IV Storey in Place (from Nrs): No Assessment/Plan Assessment/Plan [facility] In[facility] Progress Note Date of Service: 09/15/2016 Today's Assessment & Plan: Overall stable. Awaiting further improvement in medical condition prior to elective laparoscopic, possible open, partial hepatectomy. Will follow from periphery for now. With above assessment, I've recommended the following for today: 1. Continue current cares 2. Discharge home when medically stabilized 3. Outpatient visit [facility] 4. Schedule for elective laparoscopic, possible open left lateral hepatectomy with intraoperative ultrasound Thank you again for your great care of this very pleasant gentleman and his wonderful family. If there are any questions, please feel free to call me at [phone]. TOTAL VISIT TIME: 20 minutes of which more than half was spent in [id number] discussion with the patient as well as coordination of care between multiple physicians and providers. Disclaimer: Inadvertent spelling and grammatical errors are likely due to EHR/ dictation software use and do not reflect on the quality of delivered patient care. Also, please note that the electronic time recorded on this node does not necessarily reflect the actual time of the visit. UPDATED CLINICAL SUMMARY: The patient is a very pleasant 81-year-old gentleman with known comorbid issues including prior alcoholism, diabetes and psoriasis who was admitted through the emergency department at [facility] on 09/10/2016 with back pain and difficulty walking after a fall. CT scan of abdomen and pelvis demonstrated a 2.8 cm peripherally enhancing nodule within left lobe of the liver. Liver dedicated MRI of the abdomen on 09/13/2016 confirmed presence of this mass and showed worrisome features for hepatocellular carcinoma. Liver MRI shows enough worrisome features to warrant recommendation for surgical resection. Given the location of this mass, the patient may be eligible for a laparoscopic left lateral lobectomy of the liver which should be fairly well- tolerated even though the patient has baseline liver disease. I explained this to the patient's daughter but did not explain this to the patient himself as requested by the patient's family. COMORBIDITIES: 1. Previous alcohol abuse for approximately 25 years that the patient stopped 35 years ago. 2. Psoriasis. 3. Diabetes mellitus. 4. Back pain. 5. Difficulty walking. Subjective: No major events or complaints; no major abd pain and under control with medications; no n/v/d; no sob or cp; + flatus; + BM and normal; + activity Objective: Vitals: See below I's & O's: See below Exam: GENERAL: On exam, the patient was lying in bed and appeared to be comfortable and in no acute distress. ABDOMEN: Soft, nontender and nondistended. There are no peritoneal signs or guarding. SKIN: Skin appears to be pink and feels warm to touch. NEUROLOGIC: Patient is awake, alert, and follows commands appropriately. Exam/Review of Systems Vital Signs Vitals Vital Signs Date Time Temp Pulse Resp B/P Pulse Ox O2 Delivery O2 Flow Rate FiO2 09/15/16 08:54 62 20 89 21 09/15/16 08:04 97.4 157/70 09/15/16 06:44 Nasal Cannula 2.0 Intake and Output 09/14/16 09/14/16 09/15/16 15:00 23:00 07:00 Intake Total 200 ml 1630 ml 1600 ml Output Total 1150 ml Balance 200 ml 1630 ml 450 ml Results Result Diagram: 09/15/16 0443 09/15/16 0443 SUNIL MACKEY M.D. Sep 15, 2016 13:21
[2016-09-15] MEDS: CEFEPIME 1GM/50 ML (PMX) 50 ML IVPB SCH ×2 (14:14→20:55)
[2016-09-15] MEDS: FLUCONAZOLE 200 MG/NS (PMX) 100 ML IVPB SCH (17:16)
--- NOTE | 2016-09-15 19:32 | PN ---
Date/Time of Note Date/Time of Note DATE: 09/15/16 TIME: 19:24 Assessment/Plan VTE Prophylaxis VTE Prophylaxis Intervention: heparin Lines/Catheters [facility] Urinary Cath still in place: No Assessment/Plan Assessment/Plan PROBLEMS: Status post mechanical fall with head and L1 Fracture * s/p brace delivery * Neurosurgery is following * PT consult for fitting * D/c planning , Acute rehab versus SNF Closed head injury, with a negative head CT finding. Liver cirrhosis with L hepatic lobe nodule concerning for Carcinoma * Hep C negative * surgical recs reviewed /planned for outpt f/u / appreciate input Diabetes type 2 -A1c at 8.0 * controlled with diet and NISS only Groin rash : ?Psoriatic versus fungal * Lotrisone cream Colitis / Duodenitis * continue IV abx R sided Pneumonia * Likely a component of aspiration * Maintain strict precautions * Down grade diet * ST eval * Escalate abx PPx- Heparin Subjective 24 Hr Interval Summary Free Text/Dictation Patient seen and examined. patient basically the same discussed with daughter/ nursing Exam/Review of Systems Vital Signs Vitals Vital Signs Date Time Temp Pulse Resp B/P Pulse Ox O2 Delivery O2 Flow Rate FiO2 09/15/16 14:55 94 2.0 09/15/16 14:55 71 18 Nasal Cannula 09/15/16 08:54 21 09/15/16 08:04 97.4 157/70 Intake and Output 09/14/16 09/14/16 09/15/16 15:00 23:00 07:00 Intake Total 200 ml 1630 ml 1600 ml Output Total 1150 ml Balance 200 ml 1630 ml 450 ml Exam Constitutional: alert Respiratory: reduced breath sounds, Cardiovascular: regular rate and rhythm Gastrointestinal: soft, tender, No distended Genitourinary: erythematous, circumscribed extensive macular rash in groin with erythematous skin over testicles Musculoskeletal: nl extremities to inspection Skin: psoriatic lesions on abd and thigh Results Result Diagram: 09/15/163 09/15/16442 Results 24 hrs Laboratory Tests Test 09/14/16 20:03 09/15/16 04:43 09/15/16 07:36 09/15/16 11:44 Bedside Glucose 131 110 169 Anion Gap 15 Basophils # 0.0 Basophils % 0.3 Blood Morphology Comment Blood Urea Nitrogen 25 H Calcium Level 8.4 Carbon Dioxide Level 25 Chloride Level 102 Creatinine 0.81 Eosinophils # 0.2 Eosinophils % 2.5 Glucose Level 109 Hematocrit 45.0 Hemoglobin 15.1 Lymphocytes # 1.4 Lymphocytes % 15.2 Magnesium Level 2.0 Mean Corpuscular Hemoglobin 32.6 Mean Corpuscular Hemoglobin Concent 33.7 Mean Corpuscular Volume 96.8 Mean Platelet Volume 8.5 Monocytes # 1.1 H Monocytes % 12.4 H Neutrophils # 6.2 Neutrophils % 69.6 Nucleated Red Blood Cells # 0.0 Nucleated Red Blood Cells % 0.0 Platelet Count 173 # Potassium Level 3.6 Red Blood Count 4.65 L Red Cell Distribution Width 14.9 H Sodium Level 138 White Blood Count 9.0 Test 09/15/16 16:42 Bedside Glucose 121 Medications Medications Current Medications Lorazepam (Ativan) 0.5 mg Q6H PRN IV ANXIETY; Start 09/10/16 at 22:30 Ondansetron HCl (Zofran Inj) 4 mg Q6H PRN IV NAUSEA AND/OR VOMITING; Start at 22:30 Acetaminophen (Tylenol Tab) 650 mg Q6H PRN PO PAIN LEVEL 1-3 OR FEVER; Start at 22:30 Oxycodone/ Acetaminophen (Percocet (5/ 325)) 1 tab Q6H PRN PO PAIN LEVEL 4-6 Last administered on 09/15/16 09:55; Admin Dose 1 TAB; Start 09/10/16 at 22:30 Morphine Sulfate (morphine) 2 mg Q4H PRN IV PAIN LEVEL 7-10 Last administered on 09/13/16 08:47; Admin Dose 2 MG; Start 09/10/16 at 22:30 Docusate Sodium (Colace) 100 mg Q12 PO Last administered on 09/15/16 09:40; Admin Dose 100 MG; Start 09/11/16 at 00:30 Heparin Sodium (Porcine) 5000 unit 5,000 unit Q12 SC Last administered on 09:43; Admin Dose 5,000 UNIT; Start 09/11/16 at 09:00 Metronidazole (Flagyl 500 Mg (Pmx)) 100 ml @ 100 mls/hr Q8 IVPB Last administered on 09/15/16 14:59; Admin Dose 100 MLS/HR; Start 09/10/16 at 23:15 Diagnostic Test (Pha) (Accucheck) 1 ea 02 XX ; Start 09/12/16 at 02:00 Miscellaneous Information 1 ea NOTE XX ; Start 09/11/16 at 21:30 Glucose (Glutose) 15 gm Q15M PRN PO DECREASED GLUCOSE; Start 09/11/16 at 21:30 Glucose (Glutose) 22.5 gm Q15M PRN PO DECREASED GLUCOSE; Start 09/11/16 at 21:30 Dextrose (D50w Syringe) 25 ml Q15M PRN IV DECREASED GLUCOSE; Start 09/11/16 at 21:30 Dextrose (D50w Syringe) 50 ml Q15M PRN IV DECREASED GLUCOSE; Start 09/11/16 at 21:30 Glucagon (Glucagen) 1 mg Q15M PRN IM DECREASED GLUCOSE; Start 09/11/16 at 21:30 Glucose (Glutose) 15 gm Q15M PRN BUCCAL DECREASED GLUCOSE; Start 09/11/16 at 21: 30 Phenol 1 lozenge 1 lozenge Q1H PRN MT SORE THROAT Last administered on 02:45; Admin Dose 5 LOZENGE; Start 09/12/16 at 15:00 Sodium Chloride (1/2 NS) 1,000 ml @ 75 mls/hr [id number] IV Last administered on 09/15/16 09:48; Admin Dose 75 MLS/HR; Start 09/13/16 at 16:30 Senna (Senokot) 1 tab BID PO Last administered on 09/15/16 09:40; Admin Dose 1 TAB; Start 09/13/16 at 21:00 Magnesium Hydroxide 30 ml 30 ml DAILY PRN PO CONSTIPATION Last administered on 09/13/16 20:27; Admin Dose 30 ML; Start 09/13/16 at 16:30 Fluconazole (Diflucan 200 Mg/ NS (Pmx)) 100 ml @ 100 mls/hr Q24H IVPB Last administered on 09/15/16 17:16; Admin Dose 100 MLS/HR; Start 09/14/16 at 17:00 Ketorolac Tromethamine (Toradol) 15 mg Q6 IV Last administered on 09/15/16 17: 18; Admin Dose 15 MG; Start 09/14/16 at 16:30; Stop 09/17/16 at 16:29 Guaifenesin 600 mg 600 mg BID PO Last administered on 09/15/16 09:47; Admin Dose 600 MG; Start 09/14/16 at 21:00 Cefepime HCl (Maxipime 1gm/50 ml (Pmx)) 50 ml @ 100 mls/hr Q12 IVPB Last administered on 09/15/16 14:14; Admin Dose 100 MLS/HR; Start 09/15/16 at 13:00 NADIA BURDEN Sep 15, 2016 19:32
[2016-09-15 19:58] VITALS: BP 149/70; RESP 18
[2016-09-15] MEDS: BETAMETHASONE/CLOTRIMAZOLE 15 GM CR TOP SCH (20:57)
[2016-09-16] MEDS: ACCUCHECK XX SCH (01:59)
[2016-09-16] MEDS: metroNIDAZOLE 500 MG/NS (PMX) 100 ML IVPB SCH ×3 (05:58→22:47)
[2016-09-16] MEDS: KETOROLAC 15 MG INJ IV SCH ×3 (06:00→18:55)
[2016-09-16] MEDS: MAGNESIUM HYDROXIDE 30ML CUP PO PRN (06:06)
[2016-09-16 06:26] LABS: BASOPHILS % 0.3 % (0.0-2.0); EOSINOPHILS # 0.3 10^3/ul (0.0-0.5); EOSINOPHILS % 3.1 % (0.0-7.0); HEMATOCRIT 44.8 % (42.0-52.0); HEMOGLOBIN 15.3 g/dl (14.0-18.0); LYMPHOCYTES # 1.2 10^3/ul (0.8-2.9); LYMPHOCYTES % 13.5 % (15.0-51.0); MEAN CORPUSCULAR HEMOGLOBIN 32.8 pg (29.0-33.0); MEAN CORPUSCULAR HGB CONC 34.3 g/dl (32.0-37.0); MEAN CORPUSCULAR VOLUME 95.7 fl (82.0-101.0); MEAN PLATELET VOLUME 8.4 fl (7.4-10.4); MONOCYTES % 10.8 % (0.0-11.0); NEUTROPHIL # 6.3 10^3/ul (1.6-7.5); NEUTROPHILS % 72.3 % (39.0-77.0); PLATELET COUNT 182 10^3/UL (140-440); RED BLOOD COUNT 4.68 10^6/ul (4.70-6.10); RED CELL DISTRIBUTION WIDTH 14.6 % (11.5-14.5); UNCORRECTED WBC 8.8 10^3/ul (4.8-10.8); WHITE BLOOD COUNT 8.8 10^3/ul (4.8-10.8)
[2016-09-16 06:39] LABS: CONDITION 1; LH ANALYZER COMMENTS 1
[2016-09-16 06:40] LABS: POTASSIUM 3.8 mmol/L (3.5-5.1)
[2016-09-16 06:42] LABS: CREATININE 0.67 mg/dl (0.61-1.24)
[2016-09-16 06:43] LABS: CALCIUM 8.2 mg/dl (8.4-10.2)
--- NOTE | 2016-09-16 07:32 | CONS ---
Date/Time of Note Date/Time of Note DATE: 09/16/16 TIME: 07:29 Assessment/Plan Assessment/Plan Chief Complaint/Hosp Course L1 chance fracture with . TLSO 3 months whenever upright. Neurologically stable. Problems: Consultation Date/Type/Reason Admit Date/Time Sep 10, 2016 at 19:04 Type of Consultation: Neurosurgery 24 HR Interval Summary Free Text/Dictation Patient stable. Mostly complaining of right knee pain, back pain improving but still present. Denies numbness, tingling, weakness or bowel or bladder issues. Exam/Review of Systems Vital Signs Vitals Vital Signs Date Time Temp Pulse Resp B/P Pulse Ox O2 Delivery O2 Flow Rate FiO2 09/15/16 21:23 76 18 95 Nasal Cannula 2.0 09/15/16 19:58 98.0 149/70 09/15/16 08:54 21 Intake and Output 09/15/16 09/15/16 09/16/16 15:00 23:00 07:00 Intake Total 500 ml 3250 ml 220 ml Output Total 2200 ml 600 ml Balance 500 ml 1050 ml -380 ml Exam Constitutional: alert, oriented, well developed Musculoskeletal: other (right knee tenderness and decreased ROM ) Neurological: BAIT TIER II-XII intact, nl mental status, nl speech, nl strength, other (right knee flexion somewmaht limited due to pain) Results Result Diagram: 09/16/16 0455 09/16/16 0455 Results 24 hrs Laboratory Tests Test 09/15/16 07:36 09/15/16 11:44 09/15/16 16:42 09/15/16 21:02 Bedside Glucose 110 169 121 128 Test 09/16/16 04:55 Anion Gap 15 Basophils # 0.0 Basophils % 0.3 Blood Morphology Comment Blood Urea Nitrogen 21 H Calcium Level 8.2 L Carbon Dioxide Level 22 Chloride Level 104 Creatinine 0.67 Eosinophils # 0.3 Eosinophils % 3.1 Glucose Level 110 Hematocrit 44.8 Hemoglobin 15.3 Lymphocytes # 1.2 Lymphocytes % 13.5 L Mean Corpuscular Hemoglobin 32.8 Mean Corpuscular Hemoglobin Concent 34.3 Mean Corpuscular Volume 95.7 Mean Platelet Volume 8.4 Monocytes # 1.0 H Monocytes % 10.8 Neutrophils # 6.3 Neutrophils % 72.3 Nucleated Red Blood Cells # 0.0 Nucleated Red Blood Cells % 0.0 Platelet Count 182 Potassium Level 3.8 Red Blood Count 4.68 L Red Cell Distribution Width 14.6 H Sodium Level 137 White Blood Count 8.8 Medications Medications Current Medications Lorazepam (Ativan) 0.5 mg Q6H PRN IV ANXIETY; Start 09/10/16 at 22:30 Ondansetron HCl (Zofran Inj) 4 mg Q6H PRN IV NAUSEA AND/OR VOMITING; Start at 22:30 Acetaminophen (Tylenol Tab) 650 mg Q6H PRN PO PAIN LEVEL 1-3 OR FEVER; Start at 22:30 Oxycodone/ Acetaminophen (Percocet (5/ 325)) 1 tab Q6H PRN PO PAIN LEVEL 4-6 Last administered on 09/15/16 09:55; Admin Dose 1 TAB; Start 09/10/16 at 22:30 Morphine Sulfate (morphine) 2 mg Q4H PRN IV PAIN LEVEL 7-10 Last administered on 09/13/16 08:47; Admin Dose 2 MG; Start 09/10/16 at 22:30 Docusate Sodium (Colace) 100 mg Q12 PO Last administered on 09/15/16 20:56; Admin Dose 100 MG; Start 09/11/16 at 00:30 Heparin Sodium (Porcine) 5000 unit 5,000 unit Q12 SC Last administered on 21:12; Admin Dose 5,000 UNIT; Start 09/11/16 at 09:00 Metronidazole (Flagyl 500 Mg (Pmx)) 100 ml @ 100 mls/hr Q8 IVPB Last administered on 09/16/16 05:58; Admin Dose 100 MLS/HR; Start 09/10/16 at 23:15 Diagnostic Test (Pha) (Accucheck) 1 ea 02 XX ; Start 09/12/16 at 02:00 Miscellaneous Information 1 ea NOTE XX ; Start 09/11/16 at 21:30 Glucose (Glutose) 15 gm Q15M PRN PO DECREASED GLUCOSE; Start 09/11/16 at 21:30 Glucose (Glutose) 22.5 gm Q15M PRN PO DECREASED GLUCOSE; Start 09/11/16 at 21:30 Dextrose (D50w Syringe) 25 ml Q15M PRN IV DECREASED GLUCOSE; Start 09/11/16 at 21:30 Dextrose (D50w Syringe) 50 ml Q15M PRN IV DECREASED GLUCOSE; Start 09/11/16 at 21:30 Glucagon (Glucagen) 1 mg Q15M PRN IM DECREASED GLUCOSE; Start 09/11/16 at 21:30 Glucose (Glutose) 15 gm Q15M PRN BUCCAL DECREASED GLUCOSE; Start 09/11/16 at 21: 30 Phenol 1 lozenge 1 lozenge Q1H PRN MT SORE THROAT Last administered on 02:45; Admin Dose 5 LOZENGE; Start 09/12/16 at 15:00 Sodium Chloride (1/2 NS) 1,000 ml @ 75 mls/hr [id number] IV Last administered on 09/15/16 09:48; Admin Dose 75 MLS/HR; Start 09/13/16 at 16:30 Senna (Senokot) 1 tab BID PO Last administered on 09/15/16 20:56; Admin Dose 1 TAB; Start 09/13/16 at 21:00 Magnesium Hydroxide (Milk Of Mag) 30 ml DAILY PRN PO CONSTIPATION Last administered on 09/16/16 06:06; Admin Dose 30 ML; Start 09/13/16 at 16:30 Ketorolac Tromethamine (Toradol) 15 mg Q6 IV Last administered on 09/16/16 06: 00; Admin Dose 15 MG; Start 09/14/16 at 16:30; Stop 09/17/16 at 16:29 Guaifenesin 600 mg 600 mg BID PO Last administered on 09/15/16 20:56; Admin Dose 600 MG; Start 09/14/16 at 21:00 Cefepime HCl (Maxipime 1gm/50 ml (Pmx)) 50 ml @ 100 mls/hr Q12 IVPB Last administered on 09/15/16 20:55; Admin Dose 100 MLS/HR; Start 09/15/16 at 13:00 Betamethasone/ Clotrimazole (Lotrisone Cr) 1 applic BID TOP Last administered on 09/15/16 20:57; Admin Dose 1 APPLIC; Start 09/15/16 at 21:00 NAVIN MANUEL MD Sep 16, 2016 07:32
[2016-09-16 07:44] VITALS: BP 156/70; RESP 18
[2016-09-16] MEDS: INSULIN ASPART [NOVOLOG] 3 ML PEN SC SCH ×4 (07:58→21:00)
[2016-09-16] MEDS: SENNA TAB PO SCH ×2 (09:00→21:12)
[2016-09-16] MEDS: DOCUSATE SODIUM 100 MG CAP PO SCH ×2 (09:00→21:12)
[2016-09-16] MEDS: SOD CHLORIDE 0.45% 1,000 ML IV SCH ×2 (09:18→11:08)
[2016-09-16] MEDS: GUAIFENESIN LA 600 MG TABSR PO SCH ×2 (09:18→21:12)
[2016-09-16] MEDS: BETAMETHASONE/CLOTRIMAZOLE 15 GM CR TOP SCH ×2 (09:22→21:30)
[2016-09-16] MEDS: HEPARIN 5,000 UNIT/0.5 ML SYG SC SCH ×2 (09:31→21:29)
[2016-09-16] MEDS: CEFEPIME 1GM/50 ML (PMX) 50 ML IVPB SCH ×2 (09:42→21:30)
--- NOTE | 2016-09-16 14:20 | PN ---
Date/Time of Note Date/Time of Note DATE: 09/16/16 TIME: 14:05 Assessment/Plan VTE Prophylaxis VTE Prophylaxis Intervention: heparin Lines/Catheters IV Catheter Type (from Nrs): Peripheral IV Urinary Cath still in place: No Assessment/Plan Assessment/Plan 1. Status post mechanical fall with chance L1 Fracture, TLSO 3 months whenever upright. PT 2. Closed head injury, with a negative head CT finding. 3. Ankylosing spondylitis of the lower thoracic and lumbar spine with moderate disk space narrowing at L4-5 and L5-S1. 4. Liver cirrhosis with L hepatic lobe nodule concerning for Carcinoma, * Hep C negative * surgical recs reviewed /planned for outpt f/u / appreciate input Diabetes type 2 -A1c at 8.0 * controlled with diet and NISS only Groin rash : ?Psoriatic versus fungal * Lotrisone cream Colitis / Duodenitis * continue IV abx R sided Pneumonia * Likely a component of aspiration * Maintain strict precautions * Down grade diet * ST eval * Escalate abx PPx- Heparin Subjective 24 Hr Interval Summary Free Text/Dictation still has lots of pain on back and abdomen. BM today. No nausea or vomiting Exam/Review of Systems Vital Signs Vitals Vital Signs Date Time Temp Pulse Resp B/P Pulse Ox O2 Delivery O2 Flow Rate FiO2 09/16/16 07:44 98.1 71 18 156/70 95 09/15/16 21:23 Nasal Cannula 2.0 09/15/16 08:54 21 Intake and Output 09/15/16 09/15/16 09/16/16 15:00 23:00 07:00 Intake Total 500 ml 3250 ml 675 ml Output Total 2200 ml 600 ml Balance 500 ml 1050 ml 75 ml Exam Constitutional: alert, oriented, well developed Psych: nl mood/affect, no complaints Head: atraumatic, normocephalic Eyes: EOMI, PERRL, nl conjunctiva ENMT: nl external ears & nose, nl lips & teeth, nl nasal mucosa & septum Neck: non-tender, supple Respiratory: clear to auscultation, normal air movement, No congested cough, No crackles/rales, No diminished breath sounds, No intercostal retraction, No labored breathing, No respirations, No tactile fremitus, No wheezing Cardiovascular: nl pulses, regular rate and rhythm, No S3, No S4, No bruits, No diastolic murmur, No edema, No gallop, No irregular rhythm, No jugular venous distention (JVD), No murmurs/extra sounds, No other, No rub, No systolic murmur Gastrointestinal: distended, nl liver, spleen, soft, tender (diffuse) Musculoskeletal: nl extremities to inspection Extremities: normal pulses, No calf tenderness, No clubbing, No cyanosis, No edema, No palpable cord, No pitting pedal edema, No tenderness 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, nl mental status, nl speech, nl strength Skin: nl turgor, rash or lesions Results Result Diagram: 09/16/16 0455 09/16/16 0455 Results 24 hrs Laboratory Tests Test 09/15/16 16:42 09/15/16 21:02 09/16/16 04:55 09/16/16 07:49 Bedside Glucose 121 128 112 Anion Gap 15 Basophils # 0.0 Basophils % 0.3 Blood Morphology Comment Blood Urea Nitrogen 21 H Calcium Level 8.2 L Carbon Dioxide Level 22 Chloride Level 104 Creatinine 0.67 Eosinophils # 0.3 Eosinophils % 3.1 Glucose Level 110 Hematocrit 44.8 Hemoglobin 15.3 Lymphocytes # 1.2 Lymphocytes % 13.5 L Mean Corpuscular Hemoglobin 32.8 Mean Corpuscular Hemoglobin Concent 34.3 Mean Corpuscular Volume 95.7 Mean Platelet Volume 8.4 Monocytes # 1.0 H Monocytes % 10.8 Neutrophils # 6.3 Neutrophils % 72.3 Nucleated Red Blood Cells # 0.0 Nucleated Red Blood Cells % 0.0 Platelet Count 182 Potassium Level 3.8 Red Blood Count 4.68 L Red Cell Distribution Width 14.6 H Sodium Level 137 White Blood Count 8.8 Test 09/16/16 12:00 Bedside Glucose 111 Medications Medications Current Medications Lorazepam (Ativan) 0.5 mg Q6H PRN IV ANXIETY; Start 09/10/16 at 22:30 Ondansetron HCl (Zofran Inj) 4 mg Q6H PRN IV NAUSEA AND/OR VOMITING; Start at 22:30 Acetaminophen (Tylenol Tab) 650 mg Q6H PRN PO PAIN LEVEL 1-3 OR FEVER; Start at 22:30 Oxycodone/ Acetaminophen (Percocet (5/ 325)) 1 tab Q6H PRN PO PAIN LEVEL 4-6 Last administered on 09/15/16 09:55; Admin Dose 1 TAB; Start 09/10/16 at 22:30 Morphine Sulfate (morphine) 2 mg Q4H PRN IV PAIN LEVEL 7-10 Last administered on 09/13/16 08:47; Admin Dose 2 MG; Start 09/10/16 at 22:30 Docusate Sodium (Colace) 100 mg Q12 PO Last administered on 09/15/16 20:56; Admin Dose 100 MG; Start 09/11/16 at 00:30 Heparin Sodium (Porcine) 5000 unit 5,000 unit Q12 SC Last administered on 09:31; Admin Dose 5,000 UNIT; Start 09/11/16 at 09:00 Metronidazole (Flagyl 500 Mg (Pmx)) 100 ml @ 100 mls/hr Q8 IVPB Last administered on 09/16/16 13:51; Admin Dose 100 MLS/HR; Start 09/10/16 at 23:15 Diagnostic Test (Pha) (Accucheck) 1 ea 02 XX ; Start 09/12/16 at 02:00 Miscellaneous Information 1 ea NOTE XX ; Start 09/11/16 at 21:30 Glucose (Glutose) 15 gm Q15M PRN PO DECREASED GLUCOSE; Start 09/11/16 at 21:30 Glucose (Glutose) 22.5 gm Q15M PRN PO DECREASED GLUCOSE; Start 09/11/16 at 21:30 Dextrose (D50w Syringe) 25 ml Q15M PRN IV DECREASED GLUCOSE; Start 09/11/16 at 21:30 Dextrose (D50w Syringe) 50 ml Q15M PRN IV DECREASED GLUCOSE; Start 09/11/16 at 21:30 Glucagon (Glucagen) 1 mg Q15M PRN IM DECREASED GLUCOSE; Start 09/11/16 at 21:30 Glucose (Glutose) 15 gm Q15M PRN BUCCAL DECREASED GLUCOSE; Start 09/11/16 at 21: 30 Phenol 1 lozenge 1 lozenge Q1H PRN MT SORE THROAT Last administered on 02:45; Admin Dose 5 LOZENGE; Start 09/12/16 at 15:00 Sodium Chloride (1/2 NS) 1,000 ml @ 75 mls/hr [id number] IV Last administered on 09/16/16 09:18; Admin Dose 75 MLS/HR; Start 09/13/16 at 16:30 Senna (Senokot) 1 tab BID PO Last administered on 09/15/16 20:56; Admin Dose 1 TAB; Start 09/13/16 at 21:00 Magnesium Hydroxide (Milk Of Mag) 30 ml DAILY PRN PO CONSTIPATION Last administered on 09/16/16 06:06; Admin Dose 30 ML; Start 09/13/16 at 16:30 Ketorolac Tromethamine (Toradol) 15 mg Q6 IV Last administered on 09/16/16 12: 21; Admin Dose 15 MG; Start 09/14/16 at 16:30; Stop 09/17/16 at 16:29 Guaifenesin 600 mg 600 mg BID PO Last administered on 09/16/16 09:18; Admin Dose 600 MG; Start 09/14/16 at 21:00 Cefepime HCl (Maxipime 1gm/50 ml (Pmx)) 50 ml @ 100 mls/hr Q12 IVPB Last administered on 09/16/16 09:42; Admin Dose 100 MLS/HR; Start 09/15/16 at 13:00 Betamethasone/ Clotrimazole (Lotrisone Cr) 1 applic BID TOP Last administered on 09/16/16 09:22; Admin Dose 1 APPLIC; Start 09/15/16 at 21:00 SCOTT RICHARDSON MD Sep 16, 2016 14:15
[2016-09-16 19:00] VITALS: BP 160/74; RESP 20
[2016-09-16] MEDS: OXYCODONE/ACETAMINOPHEN (5/325) TAB PO PRN (21:13)
[2016-09-16 22:51] VITALS: BP 159/74; PULSE 65; RESP 18
[2016-09-17] MEDS: KETOROLAC 15 MG INJ IV SCH ×2 (00:23→05:52)
[2016-09-17] MEDS: SOD CHLORIDE 0.45% 1,000 ML IV SCH ×3 (00:23→16:30)
[2016-09-17] MEDS: ACCUCHECK XX SCH (02:00)
[2016-09-17 05:46] LABS: BASOPHILS % 0.2 % (0.0-2.0); EOSINOPHILS # 0.3 10^3/ul (0.0-0.5); EOSINOPHILS % 3.1 % (0.0-7.0); HEMATOCRIT 44.9 % (42.0-52.0); HEMOGLOBIN 15.4 g/dl (14.0-18.0); LYMPHOCYTES # 1.2 10^3/ul (0.8-2.9); LYMPHOCYTES % 12.5 % (15.0-51.0); MEAN CORPUSCULAR HEMOGLOBIN 32.8 pg (29.0-33.0); MEAN CORPUSCULAR HGB CONC 34.2 g/dl (32.0-37.0); MEAN PLATELET VOLUME 7.7 fl (7.4-10.4); MONOCYTES % 11.1 % (0.0-11.0); NEUTROPHIL # 6.8 10^3/ul (1.6-7.5); NEUTROPHILS % 73.1 % (39.0-77.0); PLATELET COUNT 179 10^3/UL (140-440); RED BLOOD COUNT 4.68 10^6/ul (4.70-6.10); RED CELL DISTRIBUTION WIDTH 14.9 % (11.5-14.5); UNCORRECTED WBC 9.4 10^3/ul (4.8-10.8); WHITE BLOOD COUNT 9.4 10^3/ul (4.8-10.8)
[2016-09-17] MEDS: metroNIDAZOLE 500 MG/NS (PMX) 100 ML IVPB SCH ×3 (05:52→22:34)
[2016-09-17 06:18] LABS: CREATININE 0.62 mg/dl (0.61-1.24)
[2016-09-17 06:19] LABS: CALCIUM 8.2 mg/dl (8.4-10.2)
[2016-09-17 06:24] LABS: CONDITION 1; LH ANALYZER COMMENTS 1
[2016-09-17] MEDS: INSULIN ASPART [NOVOLOG] 3 ML PEN SC SCH ×4 (08:15→21:07)
[2016-09-17 08:19] VITALS: BP 175/77; RESP 18
[2016-09-17] MEDS: CEFEPIME 1GM/50 ML (PMX) 50 ML IVPB SCH ×2 (08:43→20:49)
[2016-09-17] MEDS: GUAIFENESIN LA 600 MG TABSR PO SCH ×2 (08:43→20:53)
[2016-09-17] MEDS: SENNA TAB PO SCH ×2 (08:44→20:53)
[2016-09-17] MEDS: DOCUSATE SODIUM 100 MG CAP PO SCH ×2 (08:44→20:53)
[2016-09-17] MEDS: BETAMETHASONE/CLOTRIMAZOLE 15 GM CR TOP SCH ×2 (08:44→21:08)
[2016-09-17] MEDS: ONDANSETRON 4 MG INJ IV PRN (10:01)
--- NOTE | 2016-09-17 11:50 | PN ---
Date/Time of Note Date/Time of Note DATE: 09/17/16 TIME: 11:36 Assessment/Plan VTE Prophylaxis VTE Prophylaxis Intervention: heparin Lines/Catheters IV Catheter Type (from Nrs): Peripheral IV Urinary Cath still in place: No Assessment/Plan Assessment/Plan 1. Status post mechanical fall with chance L1 Fracture, TLSO 3 months whenever upright. PT 2. Closed head injury, with a negative head CT finding. 3. Ankylosing spondylitis of the lower thoracic and lumbar spine with moderate disk space narrowing at L4-5 and L5-S1. 4. Liver cirrhosis with L hepatic lobe nodule concerning for Carcinoma, follow up with Dr. Tao outpatient 5. R sided Pneumonia, on antibiotics, neb 6. Diabetes type 2 -A1c at 8. controlled with diet and NISS only 7. Colitis / Duodenitis 8. Likely COPD, neb, antibiotics, steroid 9. PPx- Heparin Subjective 24 Hr Interval Summary Free Text/Dictation shortness of breath, smoker abdominal pain Exam/Review of Systems Vital Signs Vitals Vital Signs Date Time Temp Pulse Resp B/P Pulse Ox O2 Delivery O2 Flow Rate FiO2 09/17/16 08:19 98.1 65 18 175/77 94 09/16/16 23:58 Nasal Cannula 2.0 09/15/16 08:54 21 Intake and Output 09/16/16 09/16/16 09/17/16 15:00 23:00 07:00 Intake Total 355 ml 1220 ml 1440 ml Output Total 350 ml 250 ml Balance 355 ml 870 ml 1190 ml Exam Constitutional: alert, oriented, well developed Psych: nl mood/affect, no complaints Head: atraumatic, normocephalic Eyes: EOMI, PERRL, nl conjunctiva ENMT: nl external ears & nose, nl lips & teeth, nl nasal mucosa & septum Neck: non-tender, supple Respiratory: clear to auscultation, diminished breath sounds, No congested cough, No crackles/rales, No intercostal retraction, No labored breathing, No respirations, No tactile fremitus, No wheezing Cardiovascular: nl pulses, regular rate and rhythm, No S3, No S4, No bruits, No diastolic murmur, No edema, No gallop, No irregular rhythm, No jugular venous distention (JVD), No murmurs/extra sounds, No other, No rub, No systolic murmur Gastrointestinal: distended, nl liver, spleen, non-tender, soft, No ascites, No bowel sounds, No firm, No hepatomegaly, No mass, No other, No rebound or guarding, No splenomegaly, No surgical scars, No tender Musculoskeletal: nl extremities to inspection Extremities: No calf tenderness, No clubbing, No cyanosis, No edema, No normal pulses, No palpable cord, No pitting pedal edema, No tenderness 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, nl mental status, nl speech, nl strength Skin: nl turgor, rash or lesions Lymph: nl lymph nodes Results Result Diagram: 09/17/1652009/17/16520 Results 24 hrs Laboratory Tests Test 09/16/16 12:00 09/16/16 17:10 09/16/16 21:23 09/17/16 05:21 Bedside Glucose 111 98 117 Anion Gap 13 Basophils # 0.0 Basophils % 0.2 Blood Morphology Comment Blood Urea Nitrogen 19 Calcium Level 8.2 L Carbon Dioxide Level 23 Chloride Level 104 Creatinine 0.62 Eosinophils # 0.3 Eosinophils % 3.1 Glucose Level 104 Hematocrit 44.9 Hemoglobin 15.4 Lymphocytes # 1.2 Lymphocytes % 12.5 L Mean Corpuscular Hemoglobin 32.8 Mean Corpuscular Hemoglobin Concent 34.2 Mean Corpuscular Volume 96.0 Mean Platelet Volume 7.7 Monocytes # 1.0 H Monocytes % 11.1 H Neutrophils # 6.8 Neutrophils % 73.1 Nucleated Red Blood Cells # 0.0 Nucleated Red Blood Cells % 0.0 Platelet Count 179 Potassium Level 4.0 Red Blood Count 4.68 L Red Cell Distribution Width 14.9 H Sodium Level 136 White Blood Count 9.4 Test 09/17/16 07:37 Bedside Glucose 90 Medications Medications Current Medications Lorazepam (Ativan) 0.5 mg Q6H PRN IV ANXIETY; Start 09/10/16 at 22:30 Ondansetron HCl (Zofran Inj) 4 mg Q6H PRN IV NAUSEA AND/OR VOMITING Last administered on 09/17/16t 10:01; Admin Dose 4 MG; Start 09/10/16 at 22:30 Acetaminophen (Tylenol Tab) 650 mg Q6H PRN PO PAIN LEVEL 1-3 OR FEVER; Start at 22:30 Oxycodone/ Acetaminophen (Percocet (5/ 325)) 1 tab Q6H PRN PO PAIN LEVEL 4-6 Last administered on 09/16/16 21:13; Admin Dose 1 TAB; Start 09/10/16 at 22:30 Morphine Sulfate (morphine) 2 mg Q4H PRN IV PAIN LEVEL 7-10 Last administered on 09/13/16 08:47; Admin Dose 2 MG; Start 09/10/16 at 22:30 Docusate Sodium (Colace) 100 mg Q12 PO Last administered on 09/16/16 21:12; Admin Dose 100 MG; Start 09/11/16 at 00:30 Heparin Sodium (Porcine) 5000 unit 5,000 unit Q12 SC Last administered on 21:29; Admin Dose 5,000 UNIT; Start 09/11/16 at 09:00 Metronidazole (Flagyl 500 Mg (Pmx)) 100 ml @ 100 mls/hr Q8 IVPB Last administered on 09/17/16 05:52; Admin Dose 100 MLS/HR; Start 09/10/16 at 23:15 Diagnostic Test (Pha) (Accucheck) 1 ea 02 XX ; Start 09/12/16 at 02:00 Miscellaneous Information 1 ea NOTE XX ; Start 09/11/16 at 21:30 Glucose (Glutose) 15 gm Q15M PRN PO DECREASED GLUCOSE; Start 09/11/16 at 21:30 Glucose (Glutose) 22.5 gm Q15M PRN PO DECREASED GLUCOSE; Start 09/11/16 at 21:30 Dextrose (D50w Syringe) 25 ml Q15M PRN IV DECREASED GLUCOSE; Start 09/11/16 at 21:30 Dextrose (D50w Syringe) 50 ml Q15M PRN IV DECREASED GLUCOSE; Start 09/11/16 at 21:30 Glucagon (Glucagen) 1 mg Q15M PRN IM DECREASED GLUCOSE; Start 09/11/16 at 21:30 Glucose (Glutose) 15 gm Q15M PRN BUCCAL DECREASED GLUCOSE; Start 09/11/16 at 21: 30 Phenol 1 lozenge 1 lozenge Q1H PRN MT SORE THROAT Last administered on 02:45; Admin Dose 5 LOZENGE; Start 09/12/16 at 15:00 Sodium Chloride (1/2 NS) 1,000 ml @ 75 mls/hr [id number] IV Last administered on 09/17/16 00:23; Admin Dose 75 MLS/HR; Start 09/13/16 at 16:30 Senna (Senokot) 1 tab BID PO Last administered on 09/16/16 21:12; Admin Dose 1 TAB; Start 09/13/16 at 21:00 Magnesium Hydroxide (Milk Of Mag) 30 ml DAILY PRN PO CONSTIPATION Last administered on 09/16/16 06:06; Admin Dose 30 ML; Start 09/13/16 at 16:30 Ketorolac Tromethamine (Toradol) 15 mg Q6 IV Last administered on 09/17/16 05: 52; Admin Dose 15 MG; Start 09/14/16 at 16:30; Stop 09/17/16 at 16:29 Guaifenesin 600 mg 600 mg BID PO Last administered on 09/17/16 08:43; Admin Dose 600 MG; Start 09/14/16 at 21:00 Cefepime HCl (Maxipime 1gm/50 ml (Pmx)) 50 ml @ 100 mls/hr Q12 IVPB Last administered on 09/17/16 08:43; Admin Dose 100 MLS/HR; Start 09/15/16 at 13:00 Betamethasone/ Clotrimazole (Lotrisone Cr) 1 applic BID TOP Last administered on 09/17/16 08:44; Admin Dose 1 APPLIC; Start 09/15/16 at 21:00 SCOTT RICHARDSON MD Sep 17, 2016 11:46
[2016-09-17] MEDS ORDERED: KETOROLAC 15 MG INJ IV PRN (12:00)
[2016-09-17] MEDS ORDERED: ALBUTEROL/IPRATROPIUM (NEB) 3 ML AMP HHN PRN (12:00)
[2016-09-17] MEDS: ALBUTEROL/IPRATROPIUM (NEB) 3 ML AMP HHN SCH ×2 (13:54→20:38)
[2016-09-17] MEDS: METHYLPREDNISOLONE 40 MG INJ IV SCH ×2 (14:28→22:34)
[2016-09-17] MEDS: HEPARIN 5,000 UNIT/0.5 ML SYG SC SCH ×2 (15:13→20:57)
[2016-09-17 19:33] VITALS: BP 150/65; RESP 20
[2016-09-17] MEDS: OXYCODONE/ACETAMINOPHEN (5/325) TAB PO PRN (19:48)
[2016-09-18] MEDS: ACCUCHECK XX SCH (02:52)
[2016-09-18] MEDS: SOD CHLORIDE 0.45% 1,000 ML IV SCH ×2 (03:10→13:25)
[2016-09-18] MEDS: METHYLPREDNISOLONE 40 MG INJ IV SCH ×3 (05:55→21:37)
[2016-09-18] MEDS: metroNIDAZOLE 500 MG/NS (PMX) 100 ML IVPB SCH ×3 (05:59→23:00)
[2016-09-18 06:09] LABS: BASOPHILS % 0.1 % (0.0-2.0); HEMATOCRIT 46.1 % (42.0-52.0); HEMOGLOBIN 15.9 g/dl (14.0-18.0); LYMPHOCYTES # 0.7 10^3/ul (0.8-2.9); LYMPHOCYTES % 7.2 % (15.0-51.0); MEAN CORPUSCULAR HEMOGLOBIN 32.9 pg (29.0-33.0); MEAN CORPUSCULAR HGB CONC 34.4 g/dl (32.0-37.0); MEAN CORPUSCULAR VOLUME 95.8 fl (82.0-101.0); MEAN PLATELET VOLUME 8.2 fl (7.4-10.4); MONOCYTE # 0.2 10^3/ul (0.3-0.9); MONOCYTES % 2.4 % (0.0-11.0); NEUTROPHIL # 8.4 10^3/ul (1.6-7.5); NEUTROPHILS % 90.3 % (39.0-77.0); PLATELET COUNT 173 10^3/UL (140-440); RED BLOOD COUNT 4.82 10^6/ul (4.70-6.10); RED CELL DISTRIBUTION WIDTH 14.9 % (11.5-14.5); UNCORRECTED WBC 9.3 10^3/ul (4.8-10.8); WHITE BLOOD COUNT 9.3 10^3/ul (4.8-10.8)
[2016-09-18 06:18] LABS: POTASSIUM 5.3 mmol/L (3.5-5.1)
[2016-09-18 06:20] LABS: CREATININE 0.62 mg/dl (0.61-1.24)
[2016-09-18 06:21] LABS: CONDITION 1; LH ANALYZER COMMENTS 1
[2016-09-18 06:22] LABS: CALCIUM 8.1 mg/dl (8.4-10.2)
[2016-09-18] MEDS: ALBUTEROL/IPRATROPIUM (NEB) 3 ML AMP HHN SCH ×3 (08:01→21:09)
[2016-09-18 08:03] VITALS: BP 127/60; RESP 22
[2016-09-18] MEDS: INSULIN ASPART [NOVOLOG] 3 ML PEN SC SCH ×4 (08:15→21:00)
[2016-09-18] MEDS: CEFEPIME 1GM/50 ML (PMX) 50 ML IVPB SCH ×2 (09:24→21:36)
[2016-09-18] MEDS: DOCUSATE SODIUM 100 MG CAP PO SCH ×2 (09:28→21:37)
[2016-09-18] MEDS: GUAIFENESIN LA 600 MG TABSR PO SCH ×2 (09:28→23:04)
[2016-09-18] MEDS: SENNA TAB PO SCH ×2 (09:28→21:39)
[2016-09-18] MEDS: BETAMETHASONE/CLOTRIMAZOLE 15 GM CR TOP SCH ×2 (09:28→22:00)
[2016-09-18] MEDS: HEPARIN 5,000 UNIT/0.5 ML SYG SC SCH ×2 (13:17→21:47)
[2016-09-18] MEDS: morphine 2 MG INJ IV PRN ×2 (13:19→21:32)
--- NOTE | 2016-09-18 15:57 | PN ---
Date/Time of Note Date/Time of Note DATE: 09/18/16 TIME: 15:55 Assessment/Plan VTE Prophylaxis VTE Prophylaxis Intervention: heparin Lines/Catheters IV Catheter Type (from Nrs): Peripheral IV Urinary Cath still in place: No Assessment/Plan Assessment/Plan 1. Status post mechanical fall with chance L1 Fracture, TLSO 3 months whenever upright. PT 2. Closed head injury, with a negative head CT finding. 3. Ankylosing spondylitis of the lower thoracic and lumbar spine with moderate disk space narrowing at L4-5 and L5-S1. 4. Liver cirrhosis with L hepatic lobe nodule concerning for Carcinoma, follow up with Dr. Tao outpatient 5. R sided Pneumonia, on antibiotics, neb 6. Diabetes type 2 -A1c at 8. controlled with diet and NISS only 7. Colitis / Duodenitis 8. COPD, neb, antibiotics, steroid, improving 9. Hyperkalemia, repeat K 10. PPx- Heparin Subjective 24 Hr Interval Summary Free Text/Dictation less SOB today No abdominal pain Exam/Review of Systems Vital Signs Vitals Vital Signs Date Time Temp Pulse Resp B/P Pulse Ox O2 Delivery O2 Flow Rate FiO2 09/18/16 13:30 3.0 09/18/16 13:30 81 20 88 Nasal Cannula 09/18/16 08:03 98.4 127/60 09/17/16 20:38 28 Intake and Output 09/17/16 09/17/16 09/18/16 15:00 23:00 07:00 Intake Total 1810 ml 300 ml Output Total 450 ml 300 ml Balance 1360 ml 0 ml Exam Constitutional: alert, oriented, well developed Psych: nl mood/affect, no complaints Head: atraumatic, normocephalic Eyes: EOMI, nl conjunctiva, nl lids ENMT: nl external ears & nose, nl lips & teeth, nl nasal mucosa & septum Neck: non-tender, supple Respiratory: diminished breath sounds Cardiovascular: regular rate and rhythm, No S3, No S4, No bruits, No diastolic murmur, No edema, No gallop, No irregular rhythm, No jugular venous distention (JVD), No murmurs/extra sounds, No nl pulses, No rub, No systolic murmur Gastrointestinal: nl liver, spleen, non-tender, soft, No ascites, No bowel sounds, No distended, No firm, No hepatomegaly, No mass , No rebound or guarding, No splenomegaly, No surgical scars, No tender Musculoskeletal: nl extremities to inspection 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, nl mental status, nl speech Results Result Diagram: 09/18/1652409/18/16 0525 Results 24 hrs Laboratory Tests Test 09/17/16 17:04 09/17/16 21:04 09/18/16 02:19 09/18/16 05:25 Bedside Glucose 127 188 160 Anion Gap 15 Basophils # 0.0 Basophils % 0.1 Blood Morphology Comment Blood Urea Nitrogen 20 Calcium Level 8.1 L Carbon Dioxide Level 22 Chloride Level 103 Creatinine 0.62 Eosinophils # 0.0 Eosinophils % 0.0 Glucose Level 152 Hematocrit 46.1 Hemoglobin 15.9 Lymphocytes # 0.7 L Lymphocytes % 7.2 L Magnesium Level 2.0 Mean Corpuscular Hemoglobin 32.9 Mean Corpuscular Hemoglobin Concent 34.4 Mean Corpuscular Volume 95.8 Mean Platelet Volume 8.2 Monocytes # 0.2 L Monocytes % 2.4 Neutrophils # 8.4 H Neutrophils % 90.3 H Nucleated Red Blood Cells # 0.0 Nucleated Red Blood Cells % 0.0 Platelet Count 173 Potassium Level 5.3 H Red Blood Count 4.82 Red Cell Distribution Width 14.9 H Sodium Level 135 White Blood Count 9.3 Test 09/18/16 08:27 09/18/16 11:54 Bedside Glucose 130 212 Medications Medications Current Medications Lorazepam (Ativan) 0.5 mg Q6H PRN IV ANXIETY; Start 09/10/16 at 22:30 Ondansetron HCl (Zofran Inj) 4 mg Q6H PRN IV NAUSEA AND/OR VOMITING Last administered on 09/17/16 10:01; Admin Dose 4 MG; Start 09/10/16 at 22:30 Acetaminophen (Tylenol Tab) 650 mg Q6H PRN PO PAIN LEVEL 1-3 OR FEVER; Start at 22:30 Oxycodone/ Acetaminophen (Percocet (5/ 325)) 1 tab Q6H PRN PO PAIN LEVEL 4-6 Last administered on 09/17/16 19:48; Admin Dose 1 TAB; Start 09/10/16 at 22:30 Morphine Sulfate (morphine) 2 mg Q4H PRN IV PAIN LEVEL 7-10 Last administered on 09/18/16 13:19; Admin Dose 2 MG; Start 09/10/16 at 22:30 Docusate Sodium (Colace) 100 mg Q12 PO Last administered on 09/18/16 09:28; Admin Dose 100 MG; Start 09/11/16 at 00:30 Heparin Sodium (Porcine) 5000 unit 5,000 unit Q12 SC Last administered on 13:17; Admin Dose 5,000 UNIT; Start 09/11/16 at 09:00 Metronidazole (Flagyl 500 Mg (Pmx)) 100 ml @ 100 mls/hr Q8 IVPB Last administered on 09/18/16 13:19; Admin Dose 100 MLS/HR; Start 09/10/16 at 23:15 Diagnostic Test (Pha) (Accucheck) 1 ea 02 XX Last administered on 09/18/16 02: 52; Admin Dose 1 EA; Start 09/12/16 at 02:00 Miscellaneous Information 1 ea NOTE XX ; Start 09/11/16 at 21:30 Glucose (Glutose) 15 gm Q15M PRN PO DECREASED GLUCOSE; Start 09/11/16 at 21:30 Glucose (Glutose) 22.5 gm Q15M PRN PO DECREASED GLUCOSE; Start 09/11/16 at 21:30 Dextrose (D50w Syringe) 25 ml Q15M PRN IV DECREASED GLUCOSE; Start 09/11/16 at 21:30 Dextrose (D50w Syringe) 50 ml Q15M PRN IV DECREASED GLUCOSE; Start 09/11/16 at 21:30 Glucagon (Glucagen) 1 mg Q15M PRN IM DECREASED GLUCOSE; Start 09/11/16 at 21:30 Glucose (Glutose) 15 gm Q15M PRN BUCCAL DECREASED GLUCOSE; Start 09/11/16 at 21: 30 Phenol (Cepastat Lozenge) 1 lozenge Q1H PRN MT SORE THROAT Last administered on 09/13/16 02:45; Admin Dose 5 LOZENGE; Start 09/12/16 at 15:00 Senna (Senokot) 1 tab BID PO Last administered on 09/18/16 09:28; Admin Dose 1 TAB; Start 09/13/16 at 21:00 Magnesium Hydroxide (Milk Of Mag) 30 ml DAILY PRN PO CONSTIPATION Last administered on 09/16/16 06:06; Admin Dose 30 ML; Start 09/13/16 at 16:30 Guaifenesin 600 mg 600 mg BID PO Last administered on 09/18/16 09:28; Admin Dose 600 MG; Start 09/14/16 at 21:00 Cefepime HCl (Maxipime 1gm/50 ml (Pmx)) 50 ml @ 100 mls/hr Q12 IVPB Last administered on 09/18/16 09:24; Admin Dose 100 MLS/HR; Start 09/15/16 at 13:00 Betamethasone/ Clotrimazole (Lotrisone Cr) 1 applic BID TOP Last administered on 09/18/16 09:28; Admin Dose 1 APPLIC; Start 09/15/16 at 21:00 Ketorolac Tromethamine (Toradol) 15 mg Q6H PRN IV pain Last administered on 09/18 09:24; Admin Dose 15 MG; Start 09/17/16 at 12:00; Stop 09/20/16 at 11:59 Methylprednisolone Sodium Succinate (Solu-Medrol) 20 mg Q8 IV Last administered on 09/18/16 13:19; Admin Dose 20 MG; Start 09/17/16 at 14:00 SCOTT RICHARDSON MD Sep 18, 2016 15:57
[2016-09-18] MEDS: MAGNESIUM HYDROXIDE 30ML CUP PO PRN (18:09)
[2016-09-18 20:00] VITALS: BP 134/62; RESP 20
[2016-09-18 22:00] VITALS: PULSE 85; RESP 22
[2016-09-19] MEDS: ACCUCHECK XX SCH (02:00)
[2016-09-19] MEDS ORDERED: METHYLPREDNISOLONE 40 MG INJ IV ONE (03:00)
[2016-09-19 03:28] LABS: AADO2 Arterial 178.8 mmHg (7.0-24.0); Arterial Base Excess -2.2 mmol/L (-3.0-3); Arterial COHb 0.6 % (0.0-3.0); Arterial Fraction of Oxyhgb 89.7 % (93.0-99.0); Arterial MetHb 0.2 % (0.0-1.5); MODE NASAL CANNULA
--- NOTE | 2016-09-19 05:27 | RADRPT ---
PROCEDURE: XR Chest. CLINICAL INDICATION: Shortness of breath TECHNIQUE: An AP view of the chest was obtained. COMPARISON: Chest x-ray dated 09/14/2016 FINDINGS: There is prominence of the interstitial and central pulmonary vascular markings with small bilatera l pleural effusions. There is increased attenuation of the right lower lobe. No pneumothorax is see n. The cardiomediastinal silhouette is mildly enlarged . Calcifications are seen within the aortic arch. The osseous structures demonstrate senescent changes. IMPRESSION: 1. Findings suggestive of pulmonary vascular congestion, mildly increased when compared to the kevin or examination. 2. Small bilateral pleural effusions, also mildly increased from prior examination. There is incre ased attenuation of the right lower lobe, likely reflecting posterior layering of right pleural flui d. 3. Mild cardiomegaly and aortic atherosclerosis. RPTAT: HH .Neelam Veelz MD, MD Date Time Electronically viewed and signed by .Neelam Velez MD, on 09/19/2016 05:26 .G/
[2016-09-19] MEDS ORDERED: FUROSEMIDE 40 MG INJ IV ONE (06:00)
[2016-09-19] MEDS: metroNIDAZOLE 500 MG/NS (PMX) 100 ML IVPB SCH ×3 (06:36→22:29)
[2016-09-19 07:26] VITALS: BP 175/79; RESP 20
[2016-09-19] MEDS ORDERED: AMLODIPINE 5 MG TAB PO STA (07:41)
[2016-09-19] MEDS: ALBUTEROL/IPRATROPIUM (NEB) 3 ML AMP HHN SCH ×3 (07:51→20:35)
[2016-09-19] MEDS: morphine 2 MG INJ IV PRN (08:02)
[2016-09-19] MEDS: INSULIN ASPART [NOVOLOG] 3 ML PEN SC SCH ×4 (08:35→21:23)
[2016-09-19] MEDS: METHYLPREDNISOLONE 40 MG INJ IV SCH ×2 (10:01→21:06)
[2016-09-19] MEDS: SENNA TAB PO SCH ×2 (10:02→21:07)
[2016-09-19] MEDS: GUAIFENESIN LA 600 MG TABSR PO SCH ×2 (10:02→21:07)
[2016-09-19] MEDS: DOCUSATE SODIUM 100 MG CAP PO SCH ×2 (10:02→21:17)
[2016-09-19] MEDS: CEFEPIME 1GM/50 ML (PMX) 50 ML IVPB SCH ×2 (10:03→21:04)
[2016-09-19] MEDS: BETAMETHASONE/CLOTRIMAZOLE 15 GM CR TOP SCH ×2 (10:04→21:18)
[2016-09-19] MEDS: HEPARIN 5,000 UNIT/0.5 ML SYG SC SCH ×2 (11:00→21:11)
--- NOTE | 2016-09-19 15:12 | PN ---
Date/Time of Note Date/Time of Note DATE: 09/19/16 TIME: 15:09 Assessment/Plan VTE Prophylaxis VTE Prophylaxis Intervention: heparin Lines/Catheters IV Catheter Type (from Nrs): Peripheral IV Urinary Cath still in place: No Assessment/Plan Assessment/Plan 1. Status post mechanical fall with chance L1 Fracture, TLSO 3 months whenever upright. PT 2. Closed head injury, with a negative head CT finding. 3. Ankylosing spondylitis of the lower thoracic and lumbar spine with moderate disk space narrowing at L4-5 and L5-S1. 4. Liver cirrhosis with L hepatic lobe nodule concerning for Carcinoma, follow up with Dr. Tao outpatient 5. R sided Pneumonia, on antibiotics, neb 6. Diabetes type 2 -A1c at 8. controlled with diet and NISS only 7. Colitis / Duodenitis 8. COPD, neb, antibiotics, steroid, improving, tapering steroid 9. PPx- Heparin 10. Discharge planning-SNF Subjective 24 Hr Interval Summary Free Text/Dictation less SOB, no abdominal pain. still has back pain. talked with case manageer about d/c planning Exam/Review of Systems Vital Signs Vitals Vital Signs Date Time Temp Pulse Resp B/P Pulse Ox O2 Delivery O2 Flow Rate FiO2 09/19/16 13:14 93 5.0 09/19/16 13:14 65 20 Nasal Cannula 09/19/16 07:26 97.8 175/79 09/17/16 20:38 28 Intake and Output 09/18/16 09/18/16 09/19/16 15:00 23:00 07:00 Intake Total 1970 ml 390 ml Output Total 800 ml 600 ml Balance 1170 ml -210 ml Exam Constitutional: alert, oriented, well developed Psych: nl mood/affect, no complaints Head: atraumatic, normocephalic Eyes: EOMI, PERRL, nl conjunctiva, nl lids ENMT: mucosa pink and moist, nl external ears & nose, nl lips & teeth, nl nasal mucosa & septum Neck: non-tender, supple Respiratory: clear to auscultation, diminished breath sounds Cardiovascular: nl pulses, regular rate and rhythm, No S3, No S4, No bruits, No diastolic murmur, No edema, No gallop, No irregular rhythm, No jugular venous distention (JVD), No murmurs/extra sounds, No other, No rub, No systolic murmur Gastrointestinal: nl liver, spleen, non-tender, soft, No ascites, No bowel sounds, No distended, No firm, No hepatomegaly, No mass , No other, No rebound or guarding, No splenomegaly, No surgical scars, No tender Musculoskeletal: nl extremities to inspection Neurological: [employer] CONSULTANT II-XII intact, nl mental status, nl speech, nl strength Skin: nl turgor, rash or lesions Lymph: nl lymph nodes Results Result Diagram: 09/18/1625 09/18/16 0525 Results 24 hrs Laboratory Tests Test 09/18/16 17:18 09/18/16 21:41 09/19/16 02:57 09/19/16 07:58 Bedside Glucose 235 H 166 176 Arterial Blood HCO3 22.0 Arterial Blood Base Excess -2.2 Arterial Blood Oxygen Saturation 90.4 L Rob Test N/A Arterial Blood Gas Puncture Site LB Arterial Blood Carboxyhemoglobin 0.6 Arterial Blood Date Drawn 09/19/2016 3:16:08 AM Arterial Blood Methemoglobin 0.2 Arterial Blood pCO2 (Temp correct) 36.1 Arterial Blood pH (Temp corrected) 7.402 Arterial Blood pO2 (Temp corrected) 57.7 L Blood Gas A-a O2 Differential 178.8 H Blood Gas Modality NASAL CANNULA Blood Gas Notified Time 09/19/2016 3:27:12 AM Blood Gas Notified Whom LW Blood Gas Specimen Source Blood arterial Blood Gas Temperature 37.0 FiO2 39.0 Oxyhemoglobin Percent 89.7 L Total Hemoglobin 16.0 Test 09/19/16 12:10 Bedside Glucose 299 H Medications Medications Current Medications Lorazepam (Ativan) 0.5 mg Q6H PRN IV ANXIETY; Start 09/10/16 at 22:30 Ondansetron HCl (Zofran Inj) 4 mg Q6H PRN IV NAUSEA AND/OR VOMITING Last administered on 09/17/16 10:01; Admin Dose 4 MG; Start 09/10/16 at 22:30 Acetaminophen (Tylenol Tab) 650 mg Q6H PRN PO PAIN LEVEL 1-3 OR FEVER; Start at 22:30 Oxycodone/ Acetaminophen (Percocet (5/ 325)) 1 tab Q6H PRN PO PAIN LEVEL 4-6 Last administered on 09/17/16 19:48; Admin Dose 1 TAB; Start 09/10/16 at 22:30 Morphine Sulfate (morphine) 2 mg Q4H PRN IV PAIN LEVEL 7-10 Last administered on 09/19/16 08:02; Admin Dose 2 MG; Start 09/10/16 at 22:30 Docusate Sodium (Colace) 100 mg Q12 PO Last administered on 09/19/16 10:02; Admin Dose 100 MG; Start 09/11/16 at 00:30 Heparin Sodium (Porcine) 5000 unit 5,000 unit Q12 SC Last administered on 11:00; Admin Dose 5,000 UNIT; Start 09/11/16 at 09:00 Metronidazole (Flagyl 500 Mg (Pmx)) 100 ml @ 100 mls/hr Q8 IVPB Last administered on 09/19/16 06:36; Admin Dose 100 MLS/HR; Start 09/10/16 at 23:15 Diagnostic Test (Pha) (Accucheck) 1 ea 02 XX Last administered on 09/18/16 02: 52; Admin Dose 1 EA; Start 09/12/16 at 02:00 Miscellaneous Information 1 ea NOTE XX ; Start 09/11/16 at 21:30 Glucose (Glutose) 15 gm Q15M PRN PO DECREASED GLUCOSE; Start 09/11/16 at 21:30 Glucose (Glutose) 22.5 gm Q15M PRN PO DECREASED GLUCOSE; Start 09/11/16 at 21:30 Dextrose (D50w Syringe) 25 ml Q15M PRN IV DECREASED GLUCOSE; Start 09/11/16 at 21:30 Dextrose (D50w Syringe) 50 ml Q15M PRN IV DECREASED GLUCOSE; Start 09/11/16 at 21:30 Glucagon (Glucagen) 1 mg Q15M PRN IM DECREASED GLUCOSE; Start 09/11/16 at 21:30 Glucose (Glutose) 15 gm Q15M PRN BUCCAL DECREASED GLUCOSE; Start 09/11/16 at 21: 30 Phenol (Cepastat Lozenge) 1 lozenge Q1H PRN MT SORE THROAT Last administered on 09/13/16 02:45; Admin Dose 5 LOZENGE; Start 09/12/16 at 15:00 Senna (Senokot) 1 tab BID PO Last administered on 09/19/16 10:02; Admin Dose 1 TAB; Start 09/13/16 at 21:00 Magnesium Hydroxide (Milk Of Mag) 30 ml DAILY PRN PO CONSTIPATION Last administered on 09/18/16 18:09; Admin Dose 30 ML; Start 09/13/16 at 16:30 Guaifenesin 600 mg 600 mg BID PO Last administered on 09/19/16 10:02; Admin Dose 600 MG; Start 09/14/16 at 21:00 Cefepime HCl (Maxipime 1gm/50 ml (Pmx)) 50 ml @ 100 mls/hr Q12 IVPB Last administered on 09/19/16 10:03; Admin Dose 100 MLS/HR; Start 09/15/16 at 13:00 Betamethasone/ Clotrimazole (Lotrisone Cr) 1 applic BID TOP Last administered on 09/19/16 10:04; Admin Dose 1 APPLIC; Start 09/15/16 at 21:00 Ketorolac Tromethamine (Toradol) 15 mg Q6H PRN IV pain Last administered on 09/18 09:24; Admin Dose 15 MG; Start 09/17/16 at 12:00; Stop 09/20/16 at 11:59 Methylprednisolone Sodium Succinate (Solu-Medrol) 20 mg BID IV Last administered on 09/19/16 10:01; Admin Dose 20 MG; Start 09/18/16 at 21:00 Furosemide (Lasix) 20 mg DAILY@06 IV ; Start 09/20/16 at 06:00 Amlodipine Besylate (Norvasc) 5 mg DAILY PO ; Start 09/20/16 at 09:00 Clonidine (Catapres) 0.1 mg Q6H PRN PO ELEVATED SYSTOLIC BP Last administered on 09/19/16 08:02; Admin Dose 0.1 MG; Start 09/19/16 at 08:00 SCOTT RICHARDSON MD Sep 19, 2016 15:12
[2016-09-19 19:21] VITALS: BP 145/63; RESP 20
[2016-09-19 21:00] VITALS: PULSE 88
[2016-09-19] MEDS: ONDANSETRON 4 MG INJ IV PRN (21:11)
[2016-09-20] MEDS: ACCUCHECK XX SCH ×2 (01:55→23:44)
[2016-09-20] MEDS: morphine 2 MG INJ IV PRN ×3 (01:56→19:47)
[2016-09-20 05:15] VITALS: BP 137/63; PULSE 70; RESP 20
[2016-09-20] MEDS: FUROSEMIDE 20 MG INJ IV SCH (05:18)
[2016-09-20] MEDS: metroNIDAZOLE 500 MG/NS (PMX) 100 ML IVPB SCH ×3 (05:22→22:23)
[2016-09-20 07:01] LABS: POTASSIUM 4.6 mmol/L (3.5-5.1)
[2016-09-20 07:03] LABS: CREATININE 0.71 mg/dl (0.61-1.24)
[2016-09-20 07:05] LABS: CALCIUM 8.4 mg/dl (8.4-10.2)
[2016-09-20 08:00] VITALS: BP 132/63; RESP 18
[2016-09-20] MEDS: INSULIN ASPART [NOVOLOG] 3 ML PEN SC SCH ×4 (09:02→21:00)
[2016-09-20] MEDS: ALBUTEROL/IPRATROPIUM (NEB) 3 ML AMP HHN SCH ×3 (09:03→19:34)
[2016-09-20] MEDS: CEFEPIME 1GM/50 ML (PMX) 50 ML IVPB SCH ×2 (10:39→21:34)
[2016-09-20] MEDS: GUAIFENESIN LA 600 MG TABSR PO SCH ×2 (10:42→21:21)
[2016-09-20] MEDS: SENNA TAB PO SCH ×2 (10:42→21:20)
[2016-09-20] MEDS: METHYLPREDNISOLONE 40 MG INJ IV SCH ×3 (10:42→22:20)
[2016-09-20] MEDS: AMLODIPINE 5 MG TAB PO SCH (10:43)
[2016-09-20] MEDS: DOCUSATE SODIUM 100 MG CAP PO SCH ×2 (10:43→21:21)
[2016-09-20] MEDS: BETAMETHASONE/CLOTRIMAZOLE 15 GM CR TOP SCH ×2 (10:44→21:22)
[2016-09-20] MEDS: HEPARIN 5,000 UNIT/0.5 ML SYG SC SCH ×2 (11:39→21:25)
--- NOTE | 2016-09-20 13:57 | PN ---
Date/Time of Note Date/Time of Note DATE: 09/20/16 TIME: 13:52 Assessment/Plan VTE Prophylaxis VTE Prophylaxis Intervention: heparin Lines/Catheters IV Catheter Type (from Nrs): Peripheral IV Urinary Cath still in place: No Assessment/Plan Assessment/Plan 1. Status post mechanical fall with chance L1 Fracture, TLSO 3 months whenever upright. PT 2. Closed head injury, with a negative head CT finding. 3. COPD, neb, antibiotics, steroid, improving, tapering steroid 4. Liver cirrhosis with L hepatic lobe nodule concerning for Carcinoma, follow up with Dr. Tao outpatient 5. Ankylosing spondylitis of the lower thoracic and lumbar spine with moderate disk space narrowing at L4-5 and L5-S1. 6. R sided Pneumonia, on antibiotics, neb 7. Diabetes type 2 -A1c at 8. controlled with diet and NISS only 8. Colitis / Duodenitis, improved 9. PPx- Heparin 10. Discharge planning-SNF Subjective 24 Hr Interval Summary Free Text/Dictation better on shortness of breath Exam/Review of Systems Vital Signs Vitals Vital Signs Date Time Temp Pulse Resp B/P Pulse Ox O2 Delivery O2 Flow Rate FiO2 09/20/16 09:08 4.0 09/20/16 09:04 70 22 94 Nasal Cannula 36 09/20/16 08:00 98.5 132/63 Intake and Output 09/19/16 09/19/16 09/20/16 15:00 23:00 07:00 Intake Total 150 ml 550 ml 620 ml Output Total 1900 ml 850 ml Balance 150 ml -1350 ml -230 ml Exam Constitutional: alert, oriented, well developed Psych: nl mood/affect, no complaints Head: atraumatic, normocephalic Eyes: EOMI, PERRL, nl conjunctiva, nl lids ENMT: nl external ears & nose, nl lips & teeth, nl nasal mucosa & septum Neck: non-tender, supple Respiratory: diminished breath sounds Cardiovascular: nl pulses, regular rate and rhythm, No S3, No S4, No bruits, No diastolic murmur, No edema, No gallop, No irregular rhythm, No jugular venous distention (JVD), No murmurs/extra sounds, No other, No rub, No systolic murmur Gastrointestinal: nl liver, spleen, non-tender, soft, No ascites, No bowel sounds, No distended, No firm, No hepatomegaly, No mass , No other, No rebound or guarding, No splenomegaly, No surgical scars, No tender Musculoskeletal: nl extremities to inspection Neurological: E[employer] RESELLER II-XII intact, nl mental status, nl speech, nl strength Skin: nl turgor, rash or lesions Lymph: nl lymph nodes Results Result Diagram: 09/18/16 0525 09/20/16 0505 Results 24 hrs Laboratory Tests Test 09/19/16 17:29 09/19/16 21:18 09/20/16 01:51 09/20/16 05:05 Bedside Glucose 215 206 160 Anion Gap 13 Blood Urea Nitrogen 28 H Calcium Level 8.4 Carbon Dioxide Level 28 Chloride Level 102 Creatinine 0.71 Glucose Level 172 Potassium Level 4.6 Sodium Level 138 Test 09/20/16 08:00 09/20/16 11:54 Bedside Glucose 156 155 Medications Medications Current Medications Lorazepam (Ativan) 0.5 mg Q6H PRN IV ANXIETY; Start 09/10/16 at 22:30 Ondansetron HCl (Zofran Inj) 4 mg Q6H PRN IV NAUSEA AND/OR VOMITING Last administered on 09/19/16 21:11; Admin Dose 4 MG; Start 09/10/16 at 22:30 Acetaminophen (Tylenol Tab) 650 mg Q6H PRN PO PAIN LEVEL 1-3 OR FEVER; Start at 22:30 Oxycodone/ Acetaminophen (Percocet (5/ 325)) 1 tab Q6H PRN PO PAIN LEVEL 4-6 Last administered on 09/17/16 19:48; Admin Dose 1 TAB; Start 09/10/16 at 22:30 Morphine Sulfate (morphine) 2 mg Q4H PRN IV PAIN LEVEL 7-10 Last administered on 09/20/16 01:56; Admin Dose 2 MG; Start 09/10/16 at 22:30 Docusate Sodium (Colace) 100 mg Q12 PO Last administered on 09/20/16 10:43; Admin Dose 100 MG; Start 09/11/16 at 00:30 Heparin Sodium (Porcine) 5000 unit 5,000 unit Q12 SC Last administered on 11:39; Admin Dose 5,000 UNIT; Start 09/11/16 at 09:00 Metronidazole (Flagyl 500 Mg (Pmx)) 100 ml @ 100 mls/hr Q8 IVPB Last administered on 09/20/16 13:43; Admin Dose 100 MLS/HR; Start 09/10/16 at 23:15 Diagnostic Test (Pha) (Accucheck) 1 ea 02 XX Last administered on 09/20/16 01: 55; Admin Dose 1 EA; Start 09/12/16 at 02:00 Miscellaneous Information 1 ea NOTE XX ; Start 09/11/16 at 21:30 Glucose (Glutose) 15 gm Q15M PRN PO DECREASED GLUCOSE; Start 09/11/16 at 21:30 Glucose (Glutose) 22.5 gm Q15M PRN PO DECREASED GLUCOSE; Start 09/11/16 at 21:30 Dextrose (D50w Syringe) 25 ml Q15M PRN IV DECREASED GLUCOSE; Start 09/11/16 at 21:30 Dextrose (D50w Syringe) 50 ml Q15M PRN IV DECREASED GLUCOSE; Start 09/11/16 at 21:30 Glucagon (Glucagen) 1 mg Q15M PRN IM DECREASED GLUCOSE; Start 09/11/16 at 21:30 Glucose (Glutose) 15 gm Q15M PRN BUCCAL DECREASED GLUCOSE; Start 09/11/16 at 21: 30 Phenol (Cepastat Lozenge) 1 lozenge Q1H PRN MT SORE THROAT Last administered on 09/13/16 02:45; Admin Dose 5 LOZENGE; Start 09/12/16 at 15:00 Senna (Senokot) 1 tab BID PO Last administered on 09/20/16 10:42; Admin Dose 1 TAB; Start 09/13/16 at 21:00 Magnesium Hydroxide (Milk Of Mag) 30 ml DAILY PRN PO CONSTIPATION Last administered on 09/18/16 18:09; Admin Dose 30 ML; Start 09/13/16 at 16:30 Guaifenesin 600 mg 600 mg BID PO Last administered on 09/20/16 10:42; Admin Dose 600 MG; Start 09/14/16 at 21:00 Cefepime HCl (Maxipime 1gm/50 ml (Pmx)) 50 ml @ 100 mls/hr Q12 IVPB Last administered on 09/20/16 10:39; Admin Dose 100 MLS/HR; Start 09/15/16 at 13:00 Betamethasone/ Clotrimazole (Lotrisone Cr) 1 applic BID TOP Last administered on 09/20/16 10:44; Admin Dose 1 APPLIC; Start 09/15/16 at 21:00 Methylprednisolone Sodium Succinate (Solu-Medrol) 20 mg BID IV Last administered on 09/20/16 10:42; Admin Dose 20 MG; Start 09/18/16 at 21:00 Furosemide (Lasix) 20 mg DAILY@06 IV Last administered on 09/20/16 05:18; Admin Dose 20 MG; Start 09/20/16 at 06:00 Amlodipine Besylate (Norvasc) 5 mg DAILY PO Last administered on 09/20/16 10: 43; Admin Dose 5 MG; Start 09/20/16 at 09:00 Clonidine (Catapres) 0.1 mg Q6H PRN PO ELEVATED SYSTOLIC BP Last administered on 09/19/16 08:02; Admin Dose 0.1 MG; Start 09/19/16 at 08:00 SCOTT RICHARDSON MD Sep 20, 2016 13:57
[2016-09-20 19:40] VITALS: BP 175/65; RESP 18
[2016-09-20 21:16] VITALS: BP 142/64; PULSE 75
[2016-09-21] MEDS: FUROSEMIDE 20 MG INJ IV SCH (06:32)
[2016-09-21] MEDS: metroNIDAZOLE 500 MG/NS (PMX) 100 ML IVPB SCH ×3 (06:32→22:27)
[2016-09-21 08:04] VITALS: BP 138/68; RESP 22
[2016-09-21] MEDS: DOCUSATE SODIUM 100 MG CAP PO SCH ×2 (08:13→20:57)
[2016-09-21] MEDS: GUAIFENESIN LA 600 MG TABSR PO SCH ×2 (08:13→20:57)
[2016-09-21] MEDS: SENNA TAB PO SCH ×2 (08:13→20:57)
[2016-09-21] MEDS: AMLODIPINE 5 MG TAB PO SCH (08:17)
[2016-09-21] MEDS: CEFEPIME 1GM/50 ML (PMX) 50 ML IVPB SCH ×2 (08:19→21:13)
[2016-09-21] MEDS: morphine 2 MG INJ IV PRN ×2 (08:19→20:57)
[2016-09-21] MEDS: METHYLPREDNISOLONE 40 MG INJ IV SCH ×2 (08:20→20:57)
[2016-09-21] MEDS: HEPARIN 5,000 UNIT/0.5 ML SYG SC SCH ×2 (08:22→21:05)
[2016-09-21] MEDS: INSULIN ASPART [NOVOLOG] 3 ML PEN SC SCH ×4 (08:25→20:58)
[2016-09-21] MEDS: BETAMETHASONE/CLOTRIMAZOLE 15 GM CR TOP SCH ×2 (08:26→21:13)
[2016-09-21] MEDS: ALBUTEROL/IPRATROPIUM (NEB) 3 ML AMP HHN SCH ×4 (09:01→20:43)
--- NOTE | 2016-09-21 11:08 | PN ---
Date/Time of Note Date/Time of Note DATE: 09/21/16 TIME: 11:06 Assessment/Plan VTE Prophylaxis VTE Prophylaxis Intervention: SCD's Lines/Catheters IV [facility] Urinary Cath still in place: No Assessment/Plan Chief Complaint/Hosp Course Assessment/Plan 1. Status post mechanical fall with chance L1 Fracture, TLSO 3 months whenever upright. PT 2. Closed head injury, with a negative head CT finding. 3. COPD, neb, status post antibiotics, steroid, improving, tapering steroid 4. Liver cirrhosis with L hepatic lobe nodule concerning for Carcinoma, follow up with Dr. Tao outpatient 5. Ankylosing spondylitis of the lower thoracic and lumbar spine with moderate disk space narrowing at L4-5 and L5-S1. 6. R sided Pneumonia, on antibiotics, neb 7. Diabetes type 2 -A1c at 8. controlled with diet and NISS only 8. Colitis / Duodenitis, improved 9. PPx- Heparin Plan : discharge planning-SNF Problems: Subjective 24 Hr Interval Summary Free Text/Dictation Patient continues to complain of having low back pain Difficulty with mobility and ambulation No nausea vomiting diarrhea Exam/Review of Systems Vital Signs Vitals Vital Signs Date Time Temp Pulse Resp B/P Pulse Ox O2 Delivery O2 Flow Rate FiO2 09/21/16 08:10 Nasal Cannula 3.0 09/21/16 08:04 98.3 66 22 138/68 93 09/20/16 14:51 36 Intake and Output 09/20/16 09/20/16 09/21/16 14:59 22:59 06:59 Intake Total 150 ml 50 ml 340 ml Output Total 320 ml Balance 150 ml 50 ml 20 ml Exam General: The patient is well-developed, Not in acute distress. HEENT: Atraumatic, normocephalic. The pupils are equal and round . Neck: Supple with full range of motion. Chest: Normal expansion of the thorax during inspiration Lungs: Clear to auscultation bilaterally Heart: Normal S1-S2, Regular rhythm and rate. Abdomen: Soft , nontender, nondistended , bowel sounds are present. Extremities: Increased range of motion bilateral lower limb extremities secondary to back pain, no edema no cyanosis Neurologic: Normal mental status,The patient is awake, alert and oriented . Results Result Diagram: 09/18/16 0525 09/20/16 0506 Results 24 hrs Laboratory Tests Test 09/20/16 11:54 09/20/16 17:31 09/20/16 21:19 09/21/16 07:52 Bedside Glucose 155 194 165 147 Medications Medications Current Medications Lorazepam (Ativan) 0.5 mg Q6H PRN IV ANXIETY; Start 09/10/16 at 22:30 Ondansetron HCl (Zofran Inj) 4 mg Q6H PRN IV NAUSEA AND/OR VOMITING Last administered on 09/19/16 21:11; Admin Dose 4 MG; Start 09/10/16 at 22:30 Acetaminophen (Tylenol Tab) 650 mg Q6H PRN PO PAIN LEVEL 1-3 OR FEVER; Start at 22:30 Oxycodone/ Acetaminophen (Percocet (5/ 325)) 1 tab Q6H PRN PO PAIN LEVEL 4-6 Last administered on 09/17/16 19:48; Admin Dose 1 TAB; Start 09/10/16 at 22:30 Morphine Sulfate (morphine) 2 mg Q4H PRN IV PAIN LEVEL 7-10 Last administered on 09/21/16 08:19; Admin Dose 2 MG; Start 09/10/16 at 22:30 Docusate Sodium (Colace) 100 mg Q12 PO Last administered on 09/21/16 08:13; Admin Dose 100 MG; Start 09/11/16 at 00:30 Heparin Sodium (Porcine) 5000 unit 5,000 unit Q12 SC Last administered on 08:22; Admin Dose 5,000 UNIT; Start 09/11/16 at 09:00 Metronidazole (Flagyl 500 Mg (Pmx)) 100 ml @ 100 mls/hr Q8 IVPB Last administered on 09/21/16 06:32; Admin Dose 100 MLS/HR; Start 09/10/16 at 23:15 Diagnostic Test (Pha) (Accucheck) 1 ea 02 XX Last administered on 09/20/16 01: 55; Admin Dose 1 EA; Start 09/12/16 at 02:00 Miscellaneous Information 1 ea NOTE XX ; Start 09/11/16 at 21:30 Glucose (Glutose) 15 gm Q15M PRN PO DECREASED GLUCOSE; Start 09/11/16 at 21:30 Glucose (Glutose) 22.5 gm Q15M PRN PO DECREASED GLUCOSE; Start 09/11/16 at 21:30 Dextrose (D50w Syringe) 25 ml Q15M PRN IV DECREASED GLUCOSE; Start 09/11/16 at 21:30 Dextrose (D50w Syringe) 50 ml Q15M PRN IV DECREASED GLUCOSE; Start 09/11/16 at 21:30 Glucagon (Glucagen) 1 mg Q15M PRN IM DECREASED GLUCOSE; Start 09/11/16 at 21:30 Glucose (Glutose) 15 gm Q15M PRN BUCCAL DECREASED GLUCOSE; Start 09/11/16 at 21: 30 Phenol (Cepastat Lozenge) 1 lozenge Q1H PRN MT SORE THROAT Last administered on 09/13/16 02:45; Admin Dose 5 LOZENGE; Start 09/12/16 at 15:00 Senna (Senokot) 1 tab BID PO Last administered on 09/21/16 08:13; Admin Dose 1 TAB; Start 09/13/16 at 21:00 Magnesium Hydroxide (Milk Of Mag) 30 ml DAILY PRN PO CONSTIPATION Last administered on 09/18/16 18:09; Admin Dose 30 ML; Start 09/13/16 at 16:30 Guaifenesin 600 mg 600 mg BID PO Last administered on 09/21/16 08:13; Admin Dose 600 MG; Start 09/14/16 at 21:00 Cefepime HCl (Maxipime 1gm/50 ml (Pmx)) 50 ml @ 100 mls/hr Q12 IVPB Last administered on 09/21/16 08:19; Admin Dose 100 MLS/HR; Start 09/15/16 at 13:00 Betamethasone/ Clotrimazole (Lotrisone Cr) 1 applic BID TOP Last administered on 09/21/16 08:26; Admin Dose 1 APPLIC; Start 09/15/16 at 21:00 Methylprednisolone Sodium Succinate (Solu-Medrol) 20 mg BID IV Last administered on 09/21/16 08:20; Admin Dose 20 MG; Start 09/18/16 at 21:00 Furosemide (Lasix) 20 mg DAILY@06 IV Last administered on 09/21/16 06:32; Admin Dose 20 MG; Start 09/20/16 at 06:00 Amlodipine Besylate (Norvasc) 5 mg DAILY PO Last administered on 09/21/16 08: 17; Admin Dose 5 MG; Start 09/20/16 at 09:00 Clonidine (Catapres) 0.1 mg Q6H PRN PO ELEVATED SYSTOLIC BP Last administered on 09/21/16 06:43; Admin Dose 0.1 MG; Start 09/19/16 at 08:00 BELEM MARQUEZ MD Sep 21, 2016 11:08
[2016-09-21] MEDS: MAGNESIUM HYDROXIDE 30ML CUP PO PRN (13:06)
[2016-09-21 19:45] VITALS: BP 122/58; RESP 16
[2016-09-22] MEDS: ACCUCHECK XX SCH (01:49)
[2016-09-22] MEDS: morphine 2 MG INJ IV PRN ×3 (02:36→21:15)
[2016-09-22] MEDS: metroNIDAZOLE 500 MG/NS (PMX) 100 ML IVPB SCH ×3 (06:18→22:19)
[2016-09-22] MEDS: FUROSEMIDE 20 MG INJ IV SCH (06:18)
[2016-09-22] MEDS: ALBUTEROL/IPRATROPIUM (NEB) 3 ML AMP HHN SCH ×3 (08:00→20:20)
[2016-09-22 08:04] VITALS: BP 148/67; RESP 20
[2016-09-22] MEDS: INSULIN ASPART [NOVOLOG] 3 ML PEN SC SCH ×4 (08:15→20:35)
[2016-09-22] MEDS: METHYLPREDNISOLONE 40 MG INJ IV SCH ×2 (09:06→20:27)
[2016-09-22] MEDS: SENNA TAB PO SCH ×2 (09:06→20:27)
[2016-09-22] MEDS: DOCUSATE SODIUM 100 MG CAP PO SCH ×2 (09:06→20:27)
[2016-09-22] MEDS: AMLODIPINE 5 MG TAB PO SCH (09:09)
[2016-09-22] MEDS: GUAIFENESIN LA 600 MG TABSR PO SCH ×2 (09:10→20:27)
[2016-09-22] MEDS: CEFEPIME 1GM/50 ML (PMX) 50 ML IVPB SCH ×2 (09:11→20:27)
[2016-09-22] MEDS: BETAMETHASONE/CLOTRIMAZOLE 15 GM CR TOP SCH ×2 (09:15→20:30)
[2016-09-22] MEDS: HEPARIN 5,000 UNIT/0.5 ML SYG SC SCH ×2 (09:15→20:36)
--- NOTE | 2016-09-22 11:21 | PN ---
Date/Time of Note Date/Time of Note DATE: 09/22/16 TIME: 11:19 Assessment/Plan VTE Prophylaxis VTE Prophylaxis Intervention: SCD's Lines/Catheters IV Catheter Type (from Nrs): Saline Lock Urinary Cath still in place: No Assessment/Plan Chief Complaint/Hosp Course Assessment/Plan 1. Status post mechanical fall with chance L1 Fracture, TLSO 3 months whenever upright. PT 2. Closed head injury, with a negative head CT finding. 3. COPD, neb, status post antibiotics, steroid, improving, tapering steroid 4. Liver cirrhosis with L hepatic lobe nodule concerning for Carcinoma, follow up with Dr. Tao outpatient 5. Ankylosing spondylitis of the lower thoracic and lumbar spine with moderate disk space narrowing at L4-5 and L5-S1. 6. R sided Pneumonia, on antibiotics, neb 7. Diabetes type 2 -A1c at 8. controlled with diet and NISS only 8. Colitis / Duodenitis, improved 9. PPx- Heparin We will continue monitor patient closely for recommendation management treatment as clinical course Disposition: To [facility] facility versus home with home health if not accepted to penitentiary facility Problems: Subjective 24 Hr Interval Summary Free Text/Dictation No acute changes Patient continues to come complain of having difficulty ambulation secondary to pain No nausea vomiting diarrhea Tolerating oral intake Exam/Review of Systems Vital Signs Vitals Vital Signs Date Time Temp Pulse Resp B/P Pulse Ox O2 Delivery O2 Flow Rate FiO2 09/22/16 09:24 66 18 93 Nasal Cannula 3.0 09/22/16 08:04 97.6 148/67 09/20/16 14:51 36 Intake and Output 09/21/16 09/21/16 09/22/16 15:00 23:00 07:00 Intake Total 150 ml 790 ml 300 ml Output Total 770 ml 550 ml Balance 150 ml 20 ml -250 ml Exam General: The patient is cachectic, Not in acute distress. HEENT: Atraumatic, normocephalic. The pupils are equal and round . Neck: Supple with full range of motion. Chest: Normal expansion of the thorax during inspiration Lungs: Clear to auscultation bilaterally Heart: Normal S1-S2, Regular rhythm and rate. Abdomen: Soft , nontender, nondistended , bowel sounds are present. Extremities: Decreased range of motion bilateral lower extremity secondary to low back pain, no edema no cyanosis Neurologic: Normal mental status,The patient is awake, alert and oriented . Results Result Diagram: 09/18/16 0525 09/20/16 0505 Results 24 hrs Laboratory Tests Test 09/21/16 11:58 09/21/16 17:14 09/21/16 20:53 09/22/16 07:45 Bedside Glucose 171 145 169 131 Medications Medications Current Medications Lorazepam (Ativan) 0.5 mg Q6H PRN IV ANXIETY; Start 09/10/16 at 22:30 Ondansetron HCl (Zofran Inj) 4 mg Q6H PRN IV NAUSEA AND/OR VOMITING Last administered on 09/19/16 21:11; Admin Dose 4 MG; Start 09/10/16 at 22:30 Acetaminophen (Tylenol Tab) 650 mg Q6H PRN PO PAIN LEVEL 1-3 OR FEVER; Start at 22:30 Oxycodone/ Acetaminophen (Percocet (5/ 325)) 1 tab Q6H PRN PO PAIN LEVEL 4-6 Last administered on 09/17/16 19:48; Admin Dose 1 TAB; Start 09/10/16 at 22:30 Morphine Sulfate (morphine) 2 mg Q4H PRN IV PAIN LEVEL 7-10 Last administered on 09/22/16 02:36; Admin Dose 2 MG; Start 09/10/16 at 22:30 Docusate Sodium (Colace) 100 mg Q12 PO Last administered on 09/22/16 09:06; Admin Dose 100 MG; Start 09/11/16 at 00:30 Heparin Sodium (Porcine) 5000 unit 5,000 unit Q12 SC Last administered on 09:15; Admin Dose 5,000 UNIT; Start 09/11/16 at 09:00 Metronidazole (Flagyl 500 Mg (Pmx)) 100 ml @ 100 mls/hr Q8 IVPB Last administered on 09/22/16 06:18; Admin Dose 100 MLS/HR; Start 09/10/16 at 23:15 Diagnostic Test (Pha) (Accucheck) 1 ea 02 XX Last administered on 09/20/16 01: 55; Admin Dose 1 EA; Start 09/12/16 at 02:00 Miscellaneous Information 1 ea NOTE XX ; Start 09/11/16 at 21:30 Glucose (Glutose) 15 gm Q15M PRN PO DECREASED GLUCOSE; Start 09/11/16 at 21:30 Glucose (Glutose) 22.5 gm Q15M PRN PO DECREASED GLUCOSE; Start 09/11/16 at 21:30 Dextrose (D50w Syringe) 25 ml Q15M PRN IV DECREASED GLUCOSE; Start 09/11/16 at 21:30 Dextrose (D50w Syringe) 50 ml Q15M PRN IV DECREASED GLUCOSE; Start 09/11/16 at 21:30 Glucagon (Glucagen) 1 mg Q15M PRN IM DECREASED GLUCOSE; Start 09/11/16 at 21:30 Glucose (Glutose) 15 gm Q15M PRN BUCCAL DECREASED GLUCOSE; Start 09/11/16 at 21: 30 Phenol (Cepastat Lozenge) 1 lozenge Q1H PRN MT SORE THROAT Last administered on 09/13/16 02:45; Admin Dose 5 LOZENGE; Start 09/12/16 at 15:00 Senna (Senokot) 1 tab BID PO Last administered on 09/22/16 09:06; Admin Dose 1 TAB; Start 09/13/16 at 21:00 Magnesium Hydroxide (Milk Of Mag) 30 ml DAILY PRN PO CONSTIPATION Last administered on 09/21/16 13:06; Admin Dose 30 ML; Start 09/13/16 at 16:30 Guaifenesin 600 mg 600 mg BID PO Last administered on 09/22/16 09:10; Admin Dose 600 MG; Start 09/14/16 at 21:00 Cefepime HCl (Maxipime 1gm/50 ml (Pmx)) 50 ml @ 100 mls/hr Q12 IVPB Last administered on 09/22/16 09:11; Admin Dose 100 MLS/HR; Start 09/15/16 at 13:00 Betamethasone/ Clotrimazole (Lotrisone Cr) 1 applic BID TOP Last administered on 09/22/16 09:15; Admin Dose 1 APPLIC; Start 09/15/16 at 21:00 Methylprednisolone Sodium Succinate (Solu-Medrol) 20 mg BID IV Last administered on 09/22/16 09:06; Admin Dose 20 MG; Start 09/18/16 at 21:00 Furosemide (Lasix) 20 mg DAILY@06 IV Last administered on 09/22/16 06:18; Admin Dose 20 MG; Start 09/20/16 at 06:00 Amlodipine Besylate (Norvasc) 5 mg DAILY PO Last administered on 09/22/16 09: 09; Admin Dose 5 MG; Start 09/20/16 at 09:00 Clonidine (Catapres) 0.1 mg Q6H PRN PO ELEVATED SYSTOLIC BP Last administered on 09/21/16 06:43; Admin Dose 0.1 MG; Start 09/19/16 at 08:00 BELEM MARQUEZ MD Sep 22, 2016 11:21
[2016-09-22] MEDS: MAGNESIUM HYDROXIDE 30ML CUP PO PRN (17:26)
[2016-09-22 19:26] VITALS: BP 121/61; RESP 20
[2016-09-23] MEDS: ACCUCHECK XX SCH (01:40)
[2016-09-23] MEDS: FUROSEMIDE 20 MG INJ IV SCH (05:56)
[2016-09-23] MEDS: metroNIDAZOLE 500 MG/NS (PMX) 100 ML IVPB SCH ×3 (05:56→23:45)
[2016-09-23 07:23] VITALS: BP 160/72; RESP 18
[2016-09-23] MEDS: ALBUTEROL/IPRATROPIUM (NEB) 3 ML AMP HHN SCH ×3 (07:52→19:42)
[2016-09-23] MEDS: INSULIN ASPART [NOVOLOG] 3 ML PEN SC SCH ×4 (08:15→21:00)
[2016-09-23] MEDS: CEFEPIME 1GM/50 ML (PMX) 50 ML IVPB SCH ×2 (08:22→21:21)
[2016-09-23] MEDS: SENNA TAB PO SCH ×2 (08:22→21:13)
[2016-09-23] MEDS: GUAIFENESIN LA 600 MG TABSR PO SCH ×2 (08:22→21:13)
[2016-09-23] MEDS: BETAMETHASONE/CLOTRIMAZOLE 15 GM CR TOP SCH ×2 (08:22→21:12)
[2016-09-23] MEDS: DOCUSATE SODIUM 100 MG CAP PO SCH ×2 (08:22→21:13)
[2016-09-23] MEDS: METHYLPREDNISOLONE 40 MG INJ IV SCH ×2 (08:23→21:13)
[2016-09-23] MEDS: AMLODIPINE 5 MG TAB PO SCH (08:25)
[2016-09-23] MEDS: morphine 2 MG INJ IV PRN (08:31)
[2016-09-23] MEDS: HEPARIN 5,000 UNIT/0.5 ML SYG SC SCH ×2 (08:58→21:29)
[2016-09-23] MEDS: ONDANSETRON 4 MG INJ IV PRN (10:51)
--- NOTE | 2016-09-23 11:18 | PN ---
Date/Time of Note Date/Time of Note DATE: 09/23/16 TIME: 11:11 Assessment/Plan VTE Prophylaxis VTE Prophylaxis Intervention: SCD's Lines/Catheters IV [facility]from [facility] Saline Lock Urinary Cath still in place: No Assessment/Plan Chief Complaint/Hosp Course Assessment/Plan 1. Status post mechanical fall with chance L1 Fracture, TLSO 3 months whenever upright. PT 2. Closed head injury, with a negative head CT finding. 3. COPD, neb, status post antibiotics, steroid, improving, tapering steroid 4. Liver cirrhosis with L hepatic lobe nodule concerning for Carcinoma, follow up with Dr. Tao outpatient 5. Ankylosing spondylitis of the lower thoracic and lumbar spine with moderate disk space narrowing at L4-5 and L5-S1. 6. R sided Pneumonia, on antibiotics, neb 7. Diabetes type 2 -A1c at 8. controlled with diet and NISS only 8. Colitis / Duodenitis, improved 9. Abdominal pain, likely secondary to constipation, follow-up KUB to rule out SBO. 10. PPx- Heparin We will continue monitor patient closely for recommendation management treatment as clinical course Disposition: To retirement facility versus home with home health if not accepted to retirement facility Problems: Subjective 24 Hr Interval Summary Free Text/Dictation Patient complains of having abdominal discomfort and bloating Positive for nausea without any vomiting According to patient his last bowel movement was 4 days ago Denies of any chest pain or shortness of breath Exam/Review of Systems Vital Signs Vitals Vital Signs Date Time Temp Pulse Resp B/P Pulse Ox O2 Delivery O2 Flow Rate FiO2 09/23/16 07:52 71 22 93 Nasal Cannula 3.0 09/23/16 07:23 97.8 160/72 09/20/16 14:51 36 Intake and Output 09/22/16 09/22/16 09/23/16 15:00 23:00 07:00 Intake Total 100 ml 390 ml 280 ml Output Total 700 ml 700 ml Balance 100 ml -310 ml -420 ml Exam General: The patient is well-developed, Not in acute distress. HEENT: Atraumatic, normocephalic. The pupils are equal and round . Neck: Supple with full range of motion. Chest: Normal expansion of the thorax during inspiration Lungs: Clear to auscultation bilaterally Heart: Normal S1-S2, Regular rhythm and rate. Abdomen: Soft , nontender, mildly distended , bowel sounds are present. Extremities: Normal to inspection, no edema no cyanosis Neurologic: Normal mental status,The patient is awake, alert and oriented . Results Result Diagram: 09/20/16 0505 Results 24 hrs Laboratory Tests Test 09/22/16 11:46 09/22/16 17:21 09/22/16 20:24 09/23/16 01:39 Bedside Glucose 189 200 216 214 Test 09/23/16 07:43 Bedside Glucose 137 Medications Medications Current Medications Lorazepam (Ativan) 0.5 mg Q6H PRN IV ANXIETY; Start 09/10/16 at 22:30 Ondansetron HCl (Zofran Inj) 4 mg Q6H PRN IV NAUSEA AND/OR VOMITING Last administered on 09/23/16 10:51; Admin Dose 4 MG; Start 09/10/16 at 22:30 Acetaminophen (Tylenol Tab) 650 mg Q6H PRN PO PAIN LEVEL 1-3 OR FEVER; Start at 22:30 Oxycodone/ Acetaminophen (Percocet (5/ 325)) 1 tab Q6H PRN PO PAIN LEVEL 4-6 Last administered on 09/17/16 19:48; Admin Dose 1 TAB; Start 09/10/16 at 22:30 Morphine Sulfate (morphine) 2 mg Q4H PRN IV PAIN LEVEL 7-10 Last administered on 09/23/16 08:31; Admin Dose 2 MG; Start 09/10/16 at 22:30 Docusate Sodium (Colace) 100 mg Q12 PO Last administered on 09/23/16 08:22; Admin Dose 100 MG; Start 09/11/16 at 00:30 Heparin Sodium (Porcine) 5000 unit 5,000 unit Q12 SC Last administered on 08:58; Admin Dose 5,000 UNIT; Start 09/11/16 at 09:00 Metronidazole (Flagyl 500 Mg (Pmx)) 100 ml @ 100 mls/hr Q8 IVPB Last administered on 09/23/16 05:56; Admin Dose 100 MLS/HR; Start 09/10/16 at 23:15 Diagnostic Test (Pha) (Accucheck) 1 ea 02 XX Last administered on 09/20/16 01: 55; Admin Dose 1 EA; Start 09/12/16 at 02:00 Miscellaneous Information 1 ea NOTE XX ; Start 09/11/16 at 21:30 Glucose (Glutose) 15 gm Q15M PRN PO DECREASED GLUCOSE; Start 09/11/16 at 21:30 Glucose (Glutose) 22.5 gm Q15M PRN PO DECREASED GLUCOSE; Start 09/11/16 at 21:30 Dextrose (D50w Syringe) 25 ml Q15M PRN IV DECREASED GLUCOSE; Start 09/11/16 at 21:30 Dextrose (D50w Syringe) 50 ml Q15M PRN IV DECREASED GLUCOSE; Start 09/11/16 at 21:30 Glucagon (Glucagen) 1 mg Q15M PRN IM DECREASED GLUCOSE; Start 09/11/16 at 21:30 Glucose (Glutose) 15 gm Q15M PRN BUCCAL DECREASED GLUCOSE; Start 09/11/16 at 21: 30 Phenol (Cepastat Lozenge) 1 lozenge Q1H PRN MT SORE THROAT Last administered on 09/13/16 02:45; Admin Dose 5 LOZENGE; Start 09/12/16 at 15:00 Senna (Senokot) 1 tab BID PO Last administered on 09/23/16 08:22; Admin Dose 1 TAB; Start 09/13/16 at 21:00 Magnesium Hydroxide (Milk Of Mag) 30 ml DAILY PRN PO CONSTIPATION Last administered on 09/22/16 17:26; Admin Dose 30 ML; Start 09/13/16 at 16:30 Guaifenesin 600 mg 600 mg BID PO Last administered on 09/23/16 08:22; Admin Dose 600 MG; Start 09/14/16 at 21:00 Cefepime HCl (Maxipime 1gm/50 ml (Pmx)) 50 ml @ 100 mls/hr Q12 IVPB Last administered on 09/23/16 08:22; Admin Dose 100 MLS/HR; Start 09/15/16 at 13:00 Betamethasone/ Clotrimazole (Lotrisone Cr) 1 applic BID TOP Last administered on 09/23/16 08:22; Admin Dose 1 APPLIC; Start 09/15/16 at 21:00 Methylprednisolone Sodium Succinate (Solu-Medrol) 20 mg BID IV Last administered on 09/23/16 08:23; Admin Dose 20 MG; Start 09/18/16 at 21:00 Furosemide (Lasix) 20 mg DAILY@06 IV Last administered on 09/23/16 05:56; Admin Dose 20 MG; Start 09/20/16 at 06:00 Amlodipine Besylate (Norvasc) 5 mg DAILY PO Last administered on 09/23/16 08: 25; Admin Dose 5 MG; Start 09/20/16 at 09:00 Clonidine (Catapres) 0.1 mg Q6H PRN PO ELEVATED SYSTOLIC BP Last administered on 09/21/16 06:43; Admin Dose 0.1 MG; Start 09/19/16 at 08:00 BELEM MARQUEZ MD Sep 23, 2016 11:18
[2016-09-23] MEDS ORDERED: POLYETHYLENE GLYCOL 17 GM PACKET PO PRN (11:30)
[2016-09-23] MEDS ORDERED: BISACODYL (EC) 5 MG TAB PO ONE (11:30)
[2016-09-23] MEDS ORDERED: BISACODYL (EC) 5 MG TAB PO PRN (11:30)
[2016-09-23] MEDS ORDERED: POLYETHYLENE GLYCOL 17 GM PACKET PO ONE (11:30)
--- NOTE | 2016-09-23 14:26 | RADRPT ---
PROCEDURE: XR Abdomen. CLINICAL INDICATION: Bowel obstruction. TECHNIQUE: AP abdomen x-ray. COMPARISON: CT scan abdomen pelvis 09/10/2016. FINDINGS: The heart is enlarged. There are air-filled small bowel loops which appears somewhat organized in th e left upper and mid abdomen. There is fecal material in the cecum. There is scattered air in the distal descending and sigmoid colon. Right costophrenic angle is blunted. The left costophrenic ang le is obscured. The medial aspects of the right and left diaphragms are obscured. IMPRESSION: 1. Findings suggestive of either a reflex ileus versus intermittent or early mechanical small bowel obstruction. Follow-up imaging is recommended in 4-6 hours for reassessment. 2. Cardiomegaly. 3. Small right pleural effusion unchanged compared 09/10/2016. 4. Spondylosis of the thoracic and lumbar spine. 5. Consolidated infiltrate versus atelectasis in the medial aspects of the right and left lower lob es. 6. Small pleural effusions. RPTAT:AAJJ Physician Eva Date Time Electronically viewed and signed by Physician Eva on 09/23/2016 14:26 NATALIIA/
[2016-09-23 20:11] VITALS: BP 126/58; RESP 22
[2016-09-24] MEDS: ACCUCHECK XX SCH (02:00)
[2016-09-24 06:05] LABS: HEMATOCRIT 48.1 % (42.0-52.0); HEMOGLOBIN 16.3 g/dl (14.0-18.0); LYMPHOCYTES % 7.3 % (15.0-51.0); MEAN CORPUSCULAR HEMOGLOBIN 32.9 pg (29.0-33.0); MEAN CORPUSCULAR HGB CONC 33.9 g/dl (32.0-37.0); MEAN PLATELET VOLUME 8.4 fl (7.4-10.4); MONOCYTE # 0.8 10^3/ul (0.3-0.9); MONOCYTES % 5.8 % (0.0-11.0); NEUTROPHILS % 86.9 % (39.0-77.0); PLATELET COUNT 206 10^3/UL (140-440); RED BLOOD COUNT 4.96 10^6/ul (4.70-6.10); RED CELL DISTRIBUTION WIDTH 15.4 % (11.5-14.5); UNCORRECTED WBC 13.8 10^3/ul (4.8-10.8); WHITE BLOOD COUNT 13.8 10^3/ul (4.8-10.8)
[2016-09-24] MEDS: FUROSEMIDE 20 MG INJ IV SCH (06:20)
[2016-09-24 06:26] LABS: POTASSIUM 4.8 mmol/L (3.5-5.1)
[2016-09-24 06:28] LABS: CREATININE 0.62 mg/dl (0.61-1.24)
[2016-09-24 06:29] LABS: CALCIUM 8.7 mg/dl (8.4-10.2)
[2016-09-24] MEDS: OXYCODONE/ACETAMINOPHEN (5/325) TAB PO PRN (06:32)
[2016-09-24 06:34] LABS: CONDITION 1; LH ANALYZER COMMENTS 1
[2016-09-24] MEDS: metroNIDAZOLE 500 MG/NS (PMX) 100 ML IVPB SCH (06:34)
[2016-09-24 07:31] VITALS: BP 139/67; RESP 18
[2016-09-24] MEDS: INSULIN ASPART [NOVOLOG] 3 ML PEN SC SCH ×4 (08:15→21:00)
[2016-09-24] MEDS: ALBUTEROL/IPRATROPIUM (NEB) 3 ML AMP HHN SCH ×3 (08:53→20:21)
[2016-09-24] MEDS: HEPARIN 5,000 UNIT/0.5 ML SYG SC SCH ×2 (09:44→22:12)
[2016-09-24] MEDS: GUAIFENESIN LA 600 MG TABSR PO SCH ×2 (09:45→21:00)
[2016-09-24] MEDS: METHYLPREDNISOLONE 40 MG INJ IV SCH ×2 (09:45→21:59)
[2016-09-24] MEDS: CEFEPIME 1GM/50 ML (PMX) 50 ML IVPB SCH (09:45)
[2016-09-24] MEDS: SENNA TAB PO SCH ×2 (09:45→21:00)
[2016-09-24] MEDS: DOCUSATE SODIUM 100 MG CAP PO SCH ×2 (09:45→21:00)
[2016-09-24] MEDS: AMLODIPINE 5 MG TAB PO SCH (09:46)
[2016-09-24] MEDS: ONDANSETRON 4 MG INJ IV PRN (09:50)
[2016-09-24] MEDS: BETAMETHASONE/CLOTRIMAZOLE 15 GM CR TOP SCH ×2 (09:51→22:05)
[2016-09-24] MEDS ORDERED: BISACODYL 10 MG SUPP PR ONE (11:00)
[2016-09-24] MEDS: DEXTROSE 5%-0.45% NACL 1,000 ML IV SCH (11:13)
--- NOTE | 2016-09-24 11:13 | PN ---
Date/Time of Note Date/Time of Note DATE: 09/24/16 TIME: 11:07 Assessment/Plan VTE Prophylaxis VTE Prophylaxis Intervention: SCD's Lines/Catheters IV [facility] (from [facility]): Saline Lock Urinary Cath still in place: No Assessment/Plan Chief Complaint/Hosp Course Assessment/Plan 1. Status post mechanical fall with chance L1 Fracture, TLSO 3 months whenever upright. PT 2. Closed head injury, with a negative head CT finding. 3. COPD, neb, status post antibiotics, steroid, improving, tapering steroid 4. Liver cirrhosis with L hepatic lobe nodule concerning for Carcinoma, follow up with Dr. Tao outpatient 5. Abdominal pain, with x-ray finding of reflex ileus versus intermittent or early mechanical small bowel obstruction. Follow-up imaging KUB this a.m. general surgery consulted N.p.o., NG tube placement if recommended by general surgery, start IV antibiotics 6. R sided Pneumonia, status post cefepime (discontinued on09/24/16) , continue neb 7. Diabetes type 2 -A1c at 8. controlled with diet and NISS only 8. Colitis / Duodenitis, improved 9. Ankylosing spondylitis of the lower thoracic and lumbar spine with moderate disk space narrowing at L4-5 and L5-S1. 10. PPx- Heparin We will continue monitor patient closely for recommendation management treatment as clinical course Disposition: [facility] versus home with home health if not accepted to [facility] Problems: Subjective 24 Hr Interval Summary Free Text/Dictation Patient can complains of having abdominal discomfort and constipation Positive for nausea without any vomiting Denies any chest pain Exam/Review of Systems Vital Signs Vitals Vital Signs Date Time Temp Pulse Resp B/P Pulse Ox O2 Delivery O2 Flow Rate FiO2 09/24/16 08:58 74 20 94 Nasal Cannula 3.0 09/24/16 07:31 98.1 139/67 09/20/16 14:51 36 Intake and Output 09/23/16 09/23/16 09/24/16 15:00 23:00 07:00 Intake Total 1080 ml 580 ml Output Total 1350 ml 1000 ml Balance -270 ml -420 ml Exam General: The patient is well-developed, Not in acute distress. HEENT: Atraumatic, normocephalic. The pupils are equal and round . Neck: Supple with full range of motion. Chest: Normal expansion of the thorax during inspiration Lungs: Clear to auscultation bilaterally Heart: Normal S1-S2, Regular rhythm and rate. Abdomen: Soft , tenderness with palpation, minimally distended , bowel sounds are present. Extremities: Normal to inspection, no edema no cyanosis Neurologic: Normal mental status,The patient is awake, alert and oriented . Results Result Diagram: 09/24/16 0513 09/24/16 0513 Results 24 hrs Laboratory Tests Test 09/23/16 11:55 09/23/16 17:20 09/23/16 20:57 09/24/16 05:13 Bedside Glucose 167 156 166 Anion Gap 14 Basophils # 0.0 Basophils % 0.0 Blood Morphology Comment Blood Urea Nitrogen 27 H Calcium Level 8.7 Carbon Dioxide Level 28 Chloride Level 97 Creatinine 0.62 Eosinophils # 0.0 Eosinophils % 0.0 Glucose Level 182 Hematocrit 48.1 Hemoglobin 16.3 Lymphocytes # 1.0 Lymphocytes % 7.3 L Magnesium Level 2.0 Mean Corpuscular Hemoglobin 32.9 Mean Corpuscular Hemoglobin Concent 33.9 Mean Corpuscular Volume 97.0 Mean Platelet Volume 8.4 Monocytes # 0.8 Monocytes % 5.8 Neutrophils # 12.0 H Neutrophils % 86.9 H Nucleated Red Blood Cells # 0.0 Nucleated Red Blood Cells % 0.0 Platelet Count 206 Potassium Level 4.8 Red Blood Count 4.96 Red Cell Distribution Width 15.4 H Sodium Level 134 L White Blood Count 13.8 #H Test 09/24/16 07:55 Bedside Glucose 117 Medications Medications Current Medications Lorazepam (Ativan) 0.5 mg Q6H PRN IV ANXIETY; Start 09/10/16 at 22:30 Ondansetron HCl (Zofran Inj) 4 mg Q6H PRN IV NAUSEA AND/OR VOMITING Last administered on 09/24/16 09:50; Admin Dose 4 MG; Start 09/10/16 at 22:30 Acetaminophen (Tylenol Tab) 650 mg Q6H PRN PO PAIN LEVEL 1-3 OR FEVER; Start at 22:30 Oxycodone/ Acetaminophen (Percocet (5/ 325)) 1 tab Q6H PRN PO PAIN LEVEL 4-6 Last administered on 09/24/16 06:32; Admin Dose 1 TAB; Start 09/10/16 at 22:30 Morphine Sulfate (morphine) 2 mg Q4H PRN IV PAIN LEVEL 7-10 Last administered on 09/23/16 08:31; Admin Dose 2 MG; Start 09/10/16 at 22:30 Docusate Sodium (Colace) 100 mg Q12 PO Last administered on 09/24/16 09:45; Admin Dose 100 MG; Start 09/11/16 at 00:30 Heparin Sodium (Porcine) 5000 unit 5,000 unit Q12 SC Last administered on 09:44; Admin Dose 5,000 UNIT; Start 09/11/16 at 09:00 Metronidazole (Flagyl 500 Mg (Pmx)) 100 ml @ 100 mls/hr Q8 IVPB Last administered on 09/24/16 06:34; Admin Dose 100 MLS/HR; Start 09/10/16 at 23:15 Diagnostic Test (Pha) (Accucheck) 1 ea 02 XX Last administered on 09/20/16 01: 55; Admin Dose 1 EA; Start 09/12/16 at 02:00 Miscellaneous Information 1 ea NOTE XX ; Start 09/11/16 at 21:30 Glucose (Glutose) 15 gm Q15M PRN PO DECREASED GLUCOSE; Start 09/11/16 at 21:30 Glucose (Glutose) 22.5 gm Q15M PRN PO DECREASED GLUCOSE; Start 09/11/16 at 21:30 Dextrose (D50w Syringe) 25 ml Q15M PRN IV DECREASED GLUCOSE; Start 09/11/16 at 21:30 Dextrose (D50w Syringe) 50 ml Q15M PRN IV DECREASED GLUCOSE; Start 09/11/16 at 21:30 Glucagon (Glucagen) 1 mg Q15M PRN IM DECREASED GLUCOSE; Start 09/11/16 at 21:30 Glucose (Glutose) 15 gm Q15M PRN BUCCAL DECREASED GLUCOSE; Start 09/11/16 at 21: 30 Phenol (Cepastat Lozenge) 1 lozenge Q1H PRN MT SORE THROAT Last administered on 09/13/16 02:45; Admin Dose 5 LOZENGE; Start 09/12/16 at 15:00 Senna (Senokot) 1 tab BID PO Last administered on 09/24/16 09:45; Admin Dose 1 TAB; Start 09/13/16 at 21:00 Magnesium Hydroxide (Milk Of Mag) 30 ml DAILY PRN PO CONSTIPATION Last administered on 09/22/16 17:26; Admin Dose 30 ML; Start 09/13/16 at 16:30 Guaifenesin 600 mg 600 mg BID PO Last administered on 09/24/16 09:45; Admin Dose 600 MG; Start 09/14/16 at 21:00 Cefepime HCl (Maxipime 1gm/50 ml (Pmx)) 50 ml @ 100 mls/hr Q12 IVPB Last administered on 09/24/16 09:45; Admin Dose 100 MLS/HR; Start 09/15/16 at 13:00 Betamethasone/ Clotrimazole (Lotrisone Cr) 1 applic BID TOP Last administered on 09/24/16 09:51; Admin Dose 1 APPLIC; Start 09/15/16 at 21:00 Methylprednisolone Sodium Succinate (Solu-Medrol) 20 mg BID IV Last administered on 09/24/16 09:45; Admin Dose 20 MG; Start 09/18/16 at 21:00 Furosemide (Lasix) 20 mg DAILY@06 IV Last administered on 09/24/16 06:20; Admin Dose 20 MG; Start 09/20/16 at 06:00 Amlodipine Besylate (Norvasc) 5 mg DAILY PO Last administered on 09/24/16 09: 46; Admin Dose 5 MG; Start 09/20/16 at 09:00 Clonidine (Catapres) 0.1 mg Q6H PRN PO ELEVATED SYSTOLIC BP Last administered on 09/21/16 06:43; Admin Dose 0.1 MG; Start 09/19/16 at 08:00 Polyethylene Glycol (Miralax) 17 gm DAILY PRN PO CONSTIPATION Last administered on 09/24/16 06:25; Admin Dose 17 GM; Start 09/23/16 at 11:30 Bisacodyl (Dulcolax) 10 mg DAILY PRN PO CONSTIPATION Last administered on 06:21; Admin Dose 10 MG; Start 09/23/16 at 11:30 BELEM MARQUEZ MD Sep 24, 2016 11:13
[2016-09-24] MEDS: CIPROFLOXACIN 400MG/D5W 200 ML IVPB SCH ×2 (11:50→22:00)
[2016-09-24] MEDS ORDERED: BARIUM SULF 2% 450 ML BTL (BERRY SMOOTHIE) PO ONE (12:00)
[2016-09-24] MEDS: morphine 2 MG INJ IV PRN (13:34)
--- NOTE | 2016-09-24 14:05 | RADRPT ---
PROCEDURE: XR Abdomen. CLINICAL INDICATION: Small bowel obstruction versus ileus. TECHNIQUE: AP abdomen x-ray. COMPARISON: KUB 09/23/2016 10:36 a.m. FINDINGS: There is air in the stomach. There are air-filled small bowel loops in the central and left abdomen . There is some fecal material in the cecum. The heart is enlarged. There are consolidated areas of infiltrate or atelectasis in the medial aspects of the right left lower lobes. The right costoph renic angle and left costophrenic angle are blunted. IMPRESSION: 1. Reflex ileus versus intermittent or partial mechanical small-bowel obstruction unchanged as garth red to 09/23/2016. Stability over the interval suggest findings more consistent with an ileus. 2. Consolidative infiltrate/atelectasis in the medial aspects of the right left lower lobes. 3. Cardiomegaly with bilateral pleural effusions. RPTAT:AAJJ Physician Eva Date Time Electronically viewed and signed by Physician Eva on 09/24/2016 14:05 NATALIIA/
--- NOTE | 2016-09-24 14:13 | RADRPT ---
PROCEDURE: XR Chest. CLINICAL INDICATION: NG tube check TECHNIQUE: Single AP portable chest COMPARISON: 09/19/2016 FINDINGS: The cardiac silhouette is enlarged but stable in size. Stable vascular congestion and bilateral ple ural effusions. NG tube 10th overlying the fundus of the stomach with side port at the level of the gastroesophageal junction. Atherosclerotic calcification of the aorta. Delete the No pneumothora x. The osseous structures and soft tissues are unremarkable. IMPRESSION: 1. Cardiomegaly and vascular congestion with bilateral pleural effusions compatible with CHF. 2. NG tube tip overlying the fundus of the stomach with side port at the gastroesophageal junction. RPTAT:AAJJ Physician Mariel Date Time Electronically viewed and signed by Physician Mariel on 09/24/2016 14:13 AL/
[2016-09-24 20:48] VITALS: BP 137/62; RESP 20
[2016-09-25] MEDS: morphine 2 MG INJ IV PRN ×2 (00:35→11:26)
[2016-09-25] MEDS: INSULIN ASPART [NOVOLOG] 3 ML PEN SC SCH ×4 (00:45→17:40)
[2016-09-25] MEDS: DEXTROSE 5%-0.45% NACL 1,000 ML IV SCH ×2 (03:40→06:23)
[2016-09-25 05:57] LABS: EOSINOPHILS % 0.1 % (0.0-7.0); HEMOGLOBIN 16.7 g/dl (14.0-18.0); LYMPHOCYTES % 8.1 % (15.0-51.0); MEAN CORPUSCULAR HGB CONC 34.2 g/dl (32.0-37.0); MEAN CORPUSCULAR VOLUME 96.7 fl (82.0-101.0); MEAN PLATELET VOLUME 8.8 fl (7.4-10.4); MONOCYTE # 0.8 10^3/ul (0.3-0.9); MONOCYTES % 6.8 % (0.0-11.0); NEUTROPHIL # 10.3 10^3/ul (1.6-7.5); PLATELET COUNT 174 10^3/UL (140-440); RED BLOOD COUNT 5.07 10^6/ul (4.70-6.10); RED CELL DISTRIBUTION WIDTH 15.1 % (11.5-14.5); UNCORRECTED WBC 12.1 10^3/ul (4.8-10.8); WHITE BLOOD COUNT 12.1 10^3/ul (4.8-10.8)
[2016-09-25 06:04] LABS: POTASSIUM 4.8 mmol/L (3.5-5.1)
[2016-09-25 06:07] LABS: CALCIUM 8.6 mg/dl (8.4-10.2); CREATININE 0.62 mg/dl (0.61-1.24)
[2016-09-25 06:08] LABS: MAGNESIUM 1.9 mg/dl (1.7-2.5)
[2016-09-25 06:20] LABS: CONDITION 1; LH ANALYZER COMMENTS 1
[2016-09-25] MEDS: FUROSEMIDE 20 MG INJ IV SCH (06:20)
[2016-09-25 07:31] VITALS: BP 152/58; RESP 18
[2016-09-25] MEDS: ALBUTEROL/IPRATROPIUM (NEB) 3 ML AMP HHN SCH ×3 (07:44→19:38)
[2016-09-25] MEDS: AMLODIPINE 5 MG TAB PO SCH (09:06)
[2016-09-25] MEDS: DOCUSATE SODIUM 100 MG CAP PO SCH ×2 (09:06→21:59)
[2016-09-25] MEDS: SENNA TAB PO SCH ×2 (09:06→21:59)
[2016-09-25] MEDS: GUAIFENESIN LA 600 MG TABSR PO SCH ×2 (09:06→21:59)
[2016-09-25] MEDS: CIPROFLOXACIN 400MG/D5W 200 ML IVPB SCH ×2 (09:07→21:59)
[2016-09-25] MEDS: METHYLPREDNISOLONE 40 MG INJ IV SCH ×2 (09:07→21:59)
[2016-09-25] MEDS: BETAMETHASONE/CLOTRIMAZOLE 15 GM CR TOP SCH ×2 (09:08→21:59)
[2016-09-25] MEDS: HEPARIN 5,000 UNIT/0.5 ML SYG SC SCH ×2 (09:17→22:28)
--- NOTE | 2016-09-25 10:12 | PN ---
Date/Time of Note Date/Time of Note DATE: 09/25/16 TIME: 10:07 Assessment/Plan VTE Prophylaxis VTE Prophylaxis Intervention: heparin Lines/Catheters IV Catheter Type (from [facility]): Peripheral IV Urinary Cath still in place: No Assessment/Plan Assessment/Plan 1. Status post mechanical fall with chance L1 Fracture, TLSO 3 months 2. Closed head injury, with a negative head CT finding. 3. COPD, neb, status post antibiotics, steroid, improving, tapering steroid 4. Liver cirrhosis with L hepatic lobe nodule concerning for Carcinoma 5. Abdominal pain, with x-ray finding of reflex ileus versus intermittent or early mechanical small bowel obstruction. Follow-up imaging KUB this a.m showed persitenc of ilues- general surgery consulted, started on IV abx, NG tube placed, still NPO 6. R sided Pneumonia 7. Diabetes type 2 -A1c at 8 8. Colitis / Duodenitis, improved 9. Ankylosing spondylitis of the lower thoracic and lumbar spine with moderate disk space narrowing at L4-5 and L5-S1. 10. PPx- Heparin We will continue monitor patient closely for recommendation management treatment as clinical course Disposition: To halfway facility versus home with home health if not accepted to halfway facility Time spent more than 45 minutes Subjective 24 Hr Interval Summary Free Text/Dictation no events, BP stable, pt awake, alert, awaiting placement, CXR showed CHF and NG tube in place , KUB showd ileus , on IVF , general surgery has been following Exam/Review of Systems Vital Signs Vitals Vital Signs Date Time Temp Pulse Resp B/P Pulse Ox O2 Delivery O2 Flow Rate FiO2 09/25/16 08:00 Nasal Cannula 3.0 09/25/16 07:44 73 24 93 09/25/16 07:31 98.2 152/58 Intake and Output 09/24/16 09/24/16 09/25/16 15:00 23:00 07:00 Intake Total 300 ml 440 ml 760 ml Output Total 1750 ml Balance 300 ml -1310 ml 760 ml Exam General no acute distress NG tube in place Chest: Normal expansion of the thorax during inspiration Lungs: Clear to auscultation bilaterally Heart: Normal S1-S2, Regular rhythm and rate. Abdomen: Soft , tenderness with palpation, minimally distended , bowel sounds are hypoactive Extremities: Normal to inspection, no edema no cyanosis Results Result Diagram: 09/25/16 0500 09/25/16 0500 Results 24 hrs Laboratory Tests Test 09/24/16 12:36 09/24/16 17:13 09/24/16 21:51 09/25/16 00:29 Bedside Glucose 159 197 148 170 Test 09/25/16 05:00 09/25/16 06:26 09/25/16 07:42 Anion Gap 11 Basophils # 0.0 Basophils % 0.0 Blood Morphology Comment Blood Urea Nitrogen 21 H Calcium Level 8.6 Carbon Dioxide Level 31 Chloride Level 92 L Creatinine 0.62 Eosinophils # 0.0 Eosinophils % 0.1 Glucose Level 193 Hematocrit 49.0 Hemoglobin 16.7 Lymphocytes # 1.0 Lymphocytes % 8.1 L Magnesium Level 1.9 Mean Corpuscular Hemoglobin 33.0 Mean Corpuscular Hemoglobin Concent 34.2 Mean Corpuscular Volume 96.7 Mean Platelet Volume 8.8 Monocytes # 0.8 Monocytes % 6.8 Neutrophils # 10.3 H Neutrophils % 85.0 H Nucleated Red Blood Cells # 0.0 Nucleated Red Blood Cells % 0.0 Platelet Count 174 Potassium Level 4.8 Red Blood Count 5.07 Red Cell Distribution Width 15.1 H Sodium Level 129 L White Blood Count 12.1 H Bedside Glucose 159 160 Medications Medications Current Medications Lorazepam (Ativan) 0.5 mg Q6H PRN IV ANXIETY; Start 09/10/16 at 22:30 Ondansetron HCl (Zofran Inj) 4 mg Q6H PRN IV NAUSEA AND/OR VOMITING Last administered on 09/24/16 09:50; Admin Dose 4 MG; Start 09/10/16 at 22:30 Acetaminophen (Tylenol Tab) 650 mg Q6H PRN PO PAIN LEVEL 1-3 OR FEVER; Start at 22:30 Oxycodone/ Acetaminophen (Percocet (5/ 325)) 1 tab Q6H PRN PO PAIN LEVEL 4-6 Last administered on 09/24/16 06:32; Admin Dose 1 TAB; Start 09/10/16 at 22:30 Morphine Sulfate (morphine) 2 mg Q4H PRN IV PAIN LEVEL 7-10 Last administered on 09/25/16 00:35; Admin Dose 2 MG; Start 09/10/16 at 22:30 Docusate Sodium (Colace) 100 mg Q12 PO Last administered on 09/25/16 09:06; Admin Dose 100 MG; Start 09/11/16 at 00:30 Heparin Sodium (Porcine) (Heparin (5000 Units/0.5 ml)) 5,000 unit Q12 SC Last administered on 09/25/16 09:17; Admin Dose 5,000 UNIT; Start 09/11/16 at 09:00 Miscellaneous Information 1 ea NOTE XX ; Start 09/11/16 at 21:30 Glucose (Glutose) 15 gm Q15M PRN PO DECREASED GLUCOSE; Start 09/11/16 at 21:30 Glucose (Glutose) 22.5 gm Q15M PRN PO DECREASED GLUCOSE; Start 09/11/16 at 21:30 Dextrose (D50w Syringe) 25 ml Q15M PRN IV DECREASED GLUCOSE; Start 09/11/16 at 21:30 Dextrose (D50w Syringe) 50 ml Q15M PRN IV DECREASED GLUCOSE; Start 09/11/16 at 21:30 Glucagon (Glucagen) 1 mg Q15M PRN IM DECREASED GLUCOSE; Start 09/11/16 at 21:30 Glucose (Glutose) 15 gm Q15M PRN BUCCAL DECREASED GLUCOSE; Start 09/11/16 at 21: 30 Phenol (Cepastat Lozenge) 1 lozenge Q1H PRN MT SORE THROAT Last administered on 09/13/16 02:45; Admin Dose 5 LOZENGE; Start 09/12/16 at 15:00 Senna (Senokot) 1 tab BID PO Last administered on 09/25/16 09:06; Admin Dose 1 TAB; Start 09/13/16 at 21:00 Magnesium Hydroxide (Milk Of Mag) 30 ml DAILY PRN PO CONSTIPATION Last administered on 09/22/16 17:26; Admin Dose 30 ML; Start 09/13/16 at 16:30 Guaifenesin (Mucinex) 600 mg BID PO Last administered on 09/25/16 09:06; Admin Dose 600 MG; Start 09/14/16 at 21:00 Betamethasone/ Clotrimazole (Lotrisone Cr) 1 applic BID TOP Last administered on 09/25/16 09:08; Admin Dose 1 APPLIC; Start 09/15/16 at 21:00 Methylprednisolone Sodium Succinate (Solu-Medrol) 20 mg BID IV Last administered on 09/25/16 09:07; Admin Dose 20 MG; Start 09/18/16 at 21:00 Furosemide (Lasix) 20 mg DAILY@06 IV Last administered on 09/25/16 06:20; Admin Dose 20 MG; Start 09/20/16 at 06:00 Amlodipine Besylate (Norvasc) 5 mg DAILY PO Last administered on 09/25/16 09: 06; Admin Dose 5 MG; Start 09/20/16 at 09:00 Clonidine (Catapres) 0.1 mg Q6H PRN PO ELEVATED SYSTOLIC BP Last administered on 09/21/16 06:43; Admin Dose 0.1 MG; Start 09/19/16 at 08:00 Polyethylene Glycol (Miralax) 17 gm DAILY PRN PO CONSTIPATION Last administered on 09/24/16 06:25; Admin Dose 17 GM; Start 09/23/16 at 11:30 Bisacodyl 10 mg 10 mg DAILY PRN PO CONSTIPATION Last administered on 09/24/16 06:21; Admin Dose 10 MG; Start 09/23/16 at 11:30 Ciprofloxacin/ Dextrose 200 ml @ 200 mls/hr Q12 IVPB Last administered on 09/25 09:07; Admin Dose 200 MLS/HR; Start 09/24/16 at 11:30 Dextrose/Sodium Chloride (D5-1/2ns) 1,000 ml @ 60 mls/hr [id number] IV Last administered on 09/25/16 06:23; Admin Dose 60 MLS/HR; Start 09/24/16 at 11:00 Insulin Aspart (Novolog Insulin Pen) NOVOLOG *MILD* ALGORI... Q6 SC Last administered on 09/25/16 06:38; Admin Dose 1 UNIT; Start 09/25/16 at 00:30 ELEAZAR OMALLEY MD Sep 25, 2016 10:12
--- NOTE | 2016-09-25 11:46 | RADRPT ---
PROCEDURE: CT Abdomen and Pelvis without contrast. CLINICAL INDICATION: Abdominal and pelvic pain. TECHNIQUE: CT scan of the abdomen and pelvis without contrast was performed. Coronal and sagittal reformatted images were obtained from the axial source images. Images were reviewed on a high-resolu tion PACS workstation. Total exam DLP is 424.94 mGy-cm. CTDIvol is 8.44 mGy. One or more of the fo llowing dose reduction techniques were used: Automated exposure control, adjustment of the mA and/or kV according to patient size, use of iterative reconstruction technique. COMPARISON: CT scan of the abdomen and pelvis dated 09/10/2016 which demonstrated atelectasis at t he lung bases, bilateral pleural effusions, cardiomegaly, fatty metamorphosis of the liver, a 2.8 cm enhancing nodule in the left hepatic lobe, enlarged prostate, diverticulosis of the colon, thickeni ng of the wall of the right side of the colon, mild thickening of the wall of the duodenum, atherosc lerosis, ankylosing spondylitis, Chance fracture through the superior body of L1 and pedicles. FINDINGS: There is atelectasis at both lung bases posteriorly, worse than seen previously. Small bilateral pl eural effusions are also larger than seen previously. The heart is enlarged. There is coronary art jw calcification. There is no pericardial effusion. The liver is normal in size and attenuation. The mass anteriorly in the left hepatic lobe is not we ll seen without intravenous contrast. Gallstones are present in the gallbladder. The gallbladder is contracted. The bile ducts are anna l. The spleen is normal in size. There is no focal splenic lesion. Both adrenals are normal with no enlargement or mass. The pancreas is unremarkable with no mass or evidence of pancreatitis. There is no renal mass or hydronephrosis. There is no renal calculus or ureteral calculus. 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 The distal abdominal aorta is not dilated. There is no retroperitoneal lymphadenopathy or mass. There is no pelvic lymphadenopathy or mass. The bladder and distal ureters are normal. The periappendiceal region is unremarkable with no evidence of appendicitis. The bowel and mesentery are normal. There is a nasogastric tube with the tip in the stomach. There is mild ascites. The ascites extends into the left inguinal canal and to a lesser extent the right inguinal canal. As seen previously, there is extensive fusion of the spine and sacroiliac joints consistent with ank ylosing spondylitis. There is a transverse Chance fracture through the superior body of L1 and pedi cles, also unchanged. IMPRESSION: 1. Atelectasis at the lung bases and bilateral pleural effusions, worse than seen previously. 2. Cardiomegaly. 3. Coronary artery calcification. 4. Mass in the left hepatic lobe not well seen without IV contrast. 5. Gallstones in the gallbladder. 6. Atherosclerosis. 7. 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 8. Nasogastric tube tip in the stomach. 9. Mild ascites. 10. Ankylosing spondylitis. 11. Chance fracture through the superior body of L1 pedicles. RPTAT: QQ .Mingo Schneider MD, MD Date Time Electronically viewed and signed by .Mingo Schneider MD, on 09/25/2016 11:46 .R/
[2016-09-25 20:03] VITALS: BP 138/63; RESP 18
[2016-09-26] MEDS: INSULIN ASPART [NOVOLOG] 3 ML PEN SC SCH ×5 (00:17→23:29)
[2016-09-26] MEDS: DEXTROSE 5%-0.45% NACL 1,000 ML IV SCH ×3 (01:24→21:12)
[2016-09-26] MEDS: morphine 2 MG INJ IV PRN ×2 (04:27→22:40)
[2016-09-26] MEDS: FUROSEMIDE 20 MG INJ IV SCH (05:38)
[2016-09-26 05:45] VITALS: BP 115/59; PULSE 91; RESP 18
[2016-09-26 06:21] LABS: ALBUMIN 3.7 g/dl (3.3-4.9)
[2016-09-26 06:22] LABS: POTASSIUM 5.1 mmol/L (3.5-5.1)
[2016-09-26 06:24] LABS: ALBUMIN/GLOBULIN RATIO 1.15; CREATININE 0.63 mg/dl (0.61-1.24); TOTAL PROTEIN 6.9 g/dl (6.1-8.1)
[2016-09-26 06:28] LABS: CONDITION 1; HEMATOCRIT 52.9 % (42.0-52.0); LH ANALYZER COMMENTS 1; LYMPHOCYTES # 0.6 10^3/ul (0.8-2.9); LYMPHOCYTES % 6.1 % (15.0-51.0); MEAN CORPUSCULAR HGB CONC 34.1 g/dl (32.0-37.0); MEAN CORPUSCULAR VOLUME 96.7 fl (82.0-101.0); MONOCYTE # 0.7 10^3/ul (0.3-0.9); MONOCYTES % 6.4 % (0.0-11.0); NEUTROPHIL # 9.4 10^3/ul (1.6-7.5); NEUTROPHILS % 87.5 % (39.0-77.0); PLATELET COUNT 158 10^3/UL (140-440); RED BLOOD COUNT 5.47 10^6/ul (4.70-6.10); UNCORRECTED WBC 10.7 10^3/ul (4.8-10.8); WHITE BLOOD COUNT 10.7 10^3/ul (4.8-10.8)
[2016-09-26 06:42] LABS: INR 1.04; PROTIME 13.6 Sec (12.2-14.2); PT RATIO 1.1
[2016-09-26 06:43] LABS: PARTIAL THROMBOPLASTIN TIME 33.5 Sec (25.0-35.0)
[2016-09-26 07:36] VITALS: BP 119/59; RESP 18
[2016-09-26] MEDS: DOCUSATE SODIUM 100 MG CAP PO SCH ×2 (09:08→21:01)
[2016-09-26] MEDS: SENNA TAB PO SCH ×2 (09:08→21:01)
[2016-09-26] MEDS: METHYLPREDNISOLONE 40 MG INJ IV SCH ×2 (09:08→21:01)
[2016-09-26] MEDS: AMLODIPINE 5 MG TAB PO SCH (09:09)
[2016-09-26] MEDS: GUAIFENESIN LA 600 MG TABSR PO SCH ×2 (09:09→21:01)
[2016-09-26] MEDS: CIPROFLOXACIN 400MG/D5W 200 ML IVPB SCH (09:09)
[2016-09-26] MEDS: HEPARIN 5,000 UNIT/0.5 ML SYG SC SCH ×2 (09:27→21:07)
[2016-09-26] MEDS: BETAMETHASONE/CLOTRIMAZOLE 15 GM CR TOP SCH ×2 (09:31→21:01)
[2016-09-26] MEDS: ALBUTEROL/IPRATROPIUM (NEB) 3 ML AMP HHN SCH ×3 (10:34→20:58)
--- NOTE | 2016-09-26 14:18 | PN ---
Date/Time of Note Date/Time of Note DATE: 09/26/16 TIME: 14:12 Assessment/Plan VTE Prophylaxis VTE Prophylaxis Intervention: SCD's Lines/Catheters IV Catheter Type (from Nrs): Peripheral IV Urinary Cath still in place: No Assessment/Plan Chief Complaint/Hosp Course Assessment/Plan 1. Status post mechanical fall with chance L1 Fracture, TLSO 3 months whenever upright. PT 2. Closed head injury, with a negative head CT finding. 3. COPD, neb, status post antibiotics, steroid, improving, tapering steroid 4. Liver cirrhosis with L hepatic lobe nodule concerning for Carcinoma, follow up with Dr. Tao outpatient 5. Abdominal pain, with x-ray finding of reflex ileus versus intermittent or early mechanical small bowel obstruction. Repeat KUB demonstrated early small bowel obstruction N.p.o., NG tube placement if recommended by general surgery, start IV antibiotics 6. R sided Pneumonia, status post cefepime (discontinued on09/24/16) , continue neb 7. Diabetes type 2 -A1c at 8. controlled with diet and NISS only 8. Ileus, continue ciprofloxacin 9. Ankylosing spondylitis of the lower thoracic and lumbar spine with moderate disk space narrowing at L4-5 and L5-S1. 10. PPx- Heparin We will continue monitor patient closely for recommendation management treatment as clinical course Problems: Subjective 24 Hr Interval Summary Free Text/Dictation Patient continues to complain of having abdominal discomfort NG tube in place Complains of having back pain Exam/Review of Systems Vital Signs Vitals Vital Signs Date Time Temp Pulse Resp B/P Pulse Ox O2 Delivery O2 Flow Rate FiO2 09/26/16 10:35 76 18 94 Nasal Cannula 3.0 09/26/16 07:36 98.5 119/59 Intake and Output 09/25/16 09/25/16 09/26/16 15:00 23:00 07:00 Intake Total 1000 ml 640 ml Output Total 700 ml 450 ml 900 ml Balance -700 ml 550 ml -260 ml Exam General: The patient is well-developed, in minimal distress secondary to abdominal discomfort. HEENT: Atraumatic, normocephalic. The pupils are equal and round . NG tube in place Neck: Supple with full range of motion. Chest: Normal expansion of the thorax during inspiration Lungs: Clear to auscultation bilaterally Heart: Normal S1-S2, Regular rhythm and rate. Abdomen: Soft , lower abdominal tenderness , nondistended , bowel sounds are present. Extremities: Normal to inspection, no edema no cyanosis Neurologic: Normal mental status,The patient is awake, alert and oriented . Results Result Diagram: 09/26/16 0538 09/26/16 0530 Results 24 hrs Laboratory Tests Test 09/25/16 16:51 09/26/16 00:13 09/26/16 05:26 09/26/16 05:30 Bedside Glucose 179 159 173 Activated Partial Thromboplast Time 33.5 Alanine Aminotransferase (ALT/SGPT) 65 Albumin 3.7 Albumin/Globulin Ratio 1.15 Alkaline Phosphatase 214 H Anion Gap 15 Aspartate Amino Transf (AST/SGOT) 56 H Blood Urea Nitrogen 21 H Calcium Level 9.0 Carbon Dioxide Level 30 Chloride Level 90 L Creatinine 0.63 Direct Bilirubin 0.00 Globulin 3.20 Glucose Level 201 INR International Normalized Ratio 1.04 Indirect Bilirubin 1.0 Potassium Level 5.1 Prothrombin Time 13.6 Prothrombin Time Ratio 1.1 Sodium Level 130 L Total Bilirubin 1.0 Total Protein 6.9 Test 09/26/16 05:38 09/26/16 11:52 Basophils # 0.0 Basophils % 0.0 Blood Morphology Comment Eosinophils # 0.0 Eosinophils % 0.0 Hematocrit 52.9 H Hemoglobin 18.0 Lymphocytes # 0.6 L Lymphocytes % 6.1 L Mean Corpuscular Hemoglobin 33.0 Mean Corpuscular Hemoglobin Concent 34.1 Mean Corpuscular Volume 96.7 Mean Platelet Volume 9.0 Monocytes # 0.7 Monocytes % 6.4 Neutrophils # 9.4 H Neutrophils % 87.5 H Nucleated Red Blood Cells # 0.0 Nucleated Red Blood Cells % 0.0 Platelet Count 158 Red Blood Count 5.47 Red Cell Distribution Width 15.0 H White Blood Count 10.7 Bedside Glucose 152 Medications Medications Current Medications Lorazepam (Ativan) 0.5 mg Q6H PRN IV ANXIETY; Start 09/10/16 at 22:30 Ondansetron HCl (Zofran Inj) 4 mg Q6H PRN IV NAUSEA AND/OR VOMITING Last administered on 09/24/16t 09:50; Admin Dose 4 MG; Start 09/10/16 at 22:30 Acetaminophen (Tylenol Tab) 650 mg Q6H PRN PO PAIN LEVEL 1-3 OR FEVER; Start at 22:30 Oxycodone/ Acetaminophen (Percocet (5/ 325)) 1 tab Q6H PRN PO PAIN LEVEL 4-6 Last administered on 09/24/16 06:32; Admin Dose 1 TAB; Start 09/10/16 at 22:30 Morphine Sulfate (morphine) 2 mg Q4H PRN IV PAIN LEVEL 7-10 Last administered on 09/26/16 04:27; Admin Dose 2 MG; Start 09/10/16 at 22:30 Docusate Sodium (Colace) 100 mg Q12 PO Last administered on 09/26/16 09:08; Admin Dose 100 MG; Start 09/11/16 at 00:30 Heparin Sodium (Porcine) (Heparin (5000 Units/0.5 ml)) 5,000 unit Q12 SC Last administered on 09/26/16 09:27; Admin Dose 5,000 UNIT; Start 09/11/16 at 09:00 Miscellaneous Information 1 ea NOTE XX ; Start 09/11/16 at 21:30 Glucose (Glutose) 15 gm Q15M PRN PO DECREASED GLUCOSE; Start 09/11/16 at 21:30 Glucose (Glutose) 22.5 gm Q15M PRN PO DECREASED GLUCOSE; Start 09/11/16 at 21:30 Dextrose (D50w Syringe) 25 ml Q15M PRN IV DECREASED GLUCOSE; Start 09/11/16 at 21:30 Dextrose (D50w Syringe) 50 ml Q15M PRN IV DECREASED GLUCOSE; Start 09/11/16 at 21:30 Glucagon (Glucagen) 1 mg Q15M PRN IM DECREASED GLUCOSE; Start 09/11/16 at 21:30 Glucose (Glutose) 15 gm Q15M PRN BUCCAL DECREASED GLUCOSE; Start 09/11/16 at 21: 30 Phenol (Cepastat Lozenge) 1 lozenge Q1H PRN MT SORE THROAT Last administered on 09/13/16 02:45; Admin Dose 5 LOZENGE; Start 09/12/16 at 15:00 Senna (Senokot) 1 tab BID PO Last administered on 09/26/16 09:08; Admin Dose 1 TAB; Start 09/13/16 at 21:00 Magnesium Hydroxide (Milk Of Mag) 30 ml DAILY PRN PO CONSTIPATION Last administered on 09/22/16 17:26; Admin Dose 30 ML; Start 09/13/16 at 16:30 Guaifenesin (Mucinex) 600 mg BID PO Last administered on 09/26/16 09:09; Admin Dose 600 MG; Start 09/14/16 at 21:00 Betamethasone/ Clotrimazole (Lotrisone Cr) 1 applic BID TOP Last administered on 09/26/16 09:31; Admin Dose 1 APPLIC; Start 09/15/16 at 21:00 Methylprednisolone Sodium Succinate (Solu-Medrol) 20 mg BID IV Last administered on 09/26/16 09:08; Admin Dose 20 MG; Start 09/18/16 at 21:00 Furosemide (Lasix) 20 mg DAILY@06 IV Last administered on 09/26/16 05:38; Admin Dose 20 MG; Start 09/20/16 at 06:00 Amlodipine Besylate (Norvasc) 5 mg DAILY PO Last administered on 09/26/16 09: 09; Admin Dose 5 MG; Start 09/20/16 at 09:00 Clonidine (Catapres) 0.1 mg Q6H PRN PO ELEVATED SYSTOLIC BP Last administered on 09/21/16 06:43; Admin Dose 0.1 MG; Start 09/19/16 at 08:00 Polyethylene Glycol (Miralax) 17 gm DAILY PRN PO CONSTIPATION Last administered on 09/24/16 06:25; Admin Dose 17 GM; Start 09/23/16 at 11:30 Bisacodyl 10 mg 10 mg DAILY PRN PO CONSTIPATION Last administered on 09/24/16 06:21; Admin Dose 10 MG; Start 09/23/16 at 11:30 Ciprofloxacin/ Dextrose 200 ml @ 200 mls/hr Q12 IVPB Last administered on 09/26 09:09; Admin Dose 200 MLS/HR; Start 09/24/16 at 11:30 Dextrose/Sodium Chloride (D5-1/2ns) 1,000 ml @ 60 mls/hr [id number] IV Last administered on 09/26/16 01:24; Admin Dose 60 MLS/HR; Start 09/24/16 at 11:00 Insulin Aspart (Novolog Insulin Pen) NOVOLOG *MILD* ALGORI... Q6 SC Last administered on 09/26/16 12:19; Admin Dose 1 UNIT; Start 09/25/16 at 00:30 BELEM MARQUEZ MD Sep 26, 2016 14:18
--- NOTE | 2016-09-26 14:44 | PN ---
Date/Time of Note Date/Time of Note DATE: 09/26/16 TIME: 14:30 Assessment/Plan Lines/Catheters IV Catheter Type (from Nrs): Peripheral IV Storey in Place (from Nrs): No Assessment/Plan Assessment/Plan [facility] Inpatient Progress Note Date of Service: 09/26/2016 Today's Assessment & Plan: Overall stable. Currently presenting with abdominal pain, likely from non- surgical issues (e.g. constipation, liver disease with gastropathy, etc). Spontaneous bacterial peritonitis should be considered and antimicrobials adjusted accordingly. No indication for acute surgical intervention. From a potential liver malignancy standpoint, awaiting further improvement in medical condition prior to elective laparoscopic, possible open, partial hepatectomy. Will continue to follow from periphery. Explained to family who still insist that the medical team not divulge the diagnosis to patient. Answered all questions. With above assessment, I've recommended the following for today: 1. Continue current cares 2. Stool softeners 3. May need more gram positive coverage on the antimicrobial treatment 4. Encourage family to allow medical team to disclose more fully the diagnosis/ concern for malignancy and extent of disease 5. Continues GI involvement, both for liver as well as upper GI/gastric bloody appearing output in the NG 6. Outpatient visit [facility] 7. Schedule for elective laparoscopic, possible open left lateral hepatectomy with intraoperative ultrasound Thank you again for your great care of this very pleasant gentleman and his wonderful family. If there are any questions, please feel free to call me at . TOTAL VISIT TIME: 20 minutes of which more than half was spent in [id number] discussion with the patient as well as coordination of care between multiple physicians and providers. Disclaimer: Inadvertent spelling and grammatical errors are likely due to EHR/ dictation software use and do not reflect on the quality of delivered patient care. Also, please note that the electronic time recorded on this node does not necessarily reflect the actual time of the visit. UPDATED CLINICAL SUMMARY: The patient is a very pleasant 81-year-old gentleman with known comorbid issues including prior alcoholism, diabetes and psoriasis who was admitted through the emergency department at [facility] on 09/10/2016 with back pain and difficulty walking after a fall. CT scan of abdomen and pelvis demonstrated a 2.8 cm peripherally enhancing nodule within left lobe of the liver. Liver dedicated MRI of the abdomen on 09/13/2016 confirmed presence of this mass and showed worrisome features for hepatocellular carcinoma. Liver MRI shows enough worrisome features to warrant recommendation for surgical resection. Given the location of this mass, the patient may be eligible for a laparoscopic left lateral lobectomy of the liver which should be fairly well- tolerated even though the patient has baseline liver disease. I explained this to the patient's daughter but did not explain this to the patient himself as requested by the patient's family. Nausea/vomiting mid Sep 2016; CT showed no obvious surgical issue from an intestinal standpoint. COMORBIDITIES: 1. Previous alcohol abuse for approximately 25 years that the patient stopped 35 years ago. 2. Psoriasis. 3. Diabetes mellitus. 4. Back pain. 5. Difficulty walking. Subjective: No major events or complaints other than abdominal pain; under control with medications; no n/v/d; no sob or cp; + flatus; - BM (last one 4-5 days ago); + activity Objective: Vitals: See below I's & O's: See below Exam: GENERAL: On exam, the patient was lying in bed and appeared to be comfortable and in no acute distress. NG mildly bloody and otherwise bilious ABDOMEN: Soft, mildly tender and mildly distended. There are no peritoneal signs or guarding. SKIN: Skin appears to be pink and feels warm to touch. NEUROLOGIC: Patient is awake, alert, and follows commands appropriately. Exam/Review of Systems Vital Signs Vitals Vital Signs Date Time Temp Pulse Resp B/P Pulse Ox O2 Delivery O2 Flow Rate FiO2 09/26/16 10:35 76 18 94 Nasal Cannula 3.0 09/26/16 07:36 98.5 119/59 Intake and Output 09/25/16 09/25/16 09/26/16 15:00 23:00 07:00 Intake Total 1000 ml 640 ml Output Total 700 ml 450 ml 900 ml Balance -700 ml 550 ml -260 ml Results Result Diagram: 09/26/16 0538 09/26/16 0530 SUNIL MACKEY M.D. Sep 26, 2016 14:43
[2016-09-26] MEDS: PIPER-TAZO 3.375 GM IV (PMX) 100 ML IVPB SCH ×2 (15:13→21:01)
[2016-09-26 21:44] VITALS: BP 120/56; RESP 20
[2016-09-27] MEDS: PIPER-TAZO 3.375 GM IV (PMX) 100 ML IVPB SCH ×4 (03:16→21:00)
[2016-09-27] MEDS: FUROSEMIDE 20 MG INJ IV SCH (05:49)
[2016-09-27] MEDS: INSULIN ASPART [NOVOLOG] 3 ML PEN SC SCH ×3 (05:57→17:44)
[2016-09-27 06:47] LABS: HEMATOCRIT 47.9 % (42.0-52.0); HEMOGLOBIN 16.3 g/dl (14.0-18.0); LYMPHOCYTES # 0.7 10^3/ul (0.8-2.9); LYMPHOCYTES % 6.4 % (15.0-51.0); MEAN CORPUSCULAR HEMOGLOBIN 33.1 pg (29.0-33.0); MEAN CORPUSCULAR HGB CONC 34.1 g/dl (32.0-37.0); MEAN PLATELET VOLUME 9.1 fl (7.4-10.4); MONOCYTE # 0.7 10^3/ul (0.3-0.9); MONOCYTES % 6.2 % (0.0-11.0); NEUTROPHIL # 9.8 10^3/ul (1.6-7.5); NEUTROPHILS % 87.4 % (39.0-77.0); PLATELET COUNT 167 10^3/UL (140-440); RED BLOOD COUNT 4.94 10^6/ul (4.70-6.10); RED CELL DISTRIBUTION WIDTH 14.3 % (11.5-14.5); UNCORRECTED WBC 11.2 10^3/ul (4.8-10.8); WHITE BLOOD COUNT 11.2 10^3/ul (4.8-10.8)
[2016-09-27 06:56] LABS: CONDITION 1
[2016-09-27 07:39] LABS: POTASSIUM 4.2 mmol/L (3.5-5.1)
[2016-09-27 07:41] LABS: CREATININE 0.6 mg/dl (0.61-1.24)
[2016-09-27 07:42] LABS: CALCIUM 8.4 mg/dl (8.4-10.2)
[2016-09-27] MEDS: ALBUTEROL/IPRATROPIUM (NEB) 3 ML AMP HHN SCH ×3 (08:06→20:09)
[2016-09-27 08:07] VITALS: BP 134/63; RESP 22
[2016-09-27] MEDS: METHYLPREDNISOLONE 40 MG INJ IV SCH ×2 (08:24→21:00)
[2016-09-27] MEDS: HEPARIN 5,000 UNIT/0.5 ML SYG SC SCH ×2 (08:44→21:09)
[2016-09-27] MEDS: GUAIFENESIN LA 600 MG TABSR PO SCH ×2 (10:29→21:00)
[2016-09-27] MEDS: SENNA TAB PO SCH ×2 (10:29→21:00)
[2016-09-27] MEDS: DOCUSATE SODIUM 10 MG/ML (10ML CUP) PO SCH ×2 (10:30→21:00)
[2016-09-27] MEDS: AMLODIPINE 5 MG TAB PO SCH (10:30)
[2016-09-27] MEDS: BETAMETHASONE/CLOTRIMAZOLE 15 GM CR TOP SCH ×2 (10:31→21:00)
[2016-09-27 10:39] VITALS: BP 135/60; PULSE 77
--- NOTE | 2016-09-27 11:50 | PN ---
Date/Time of Note Date/Time of Note DATE: 09/27/16 TIME: 11:37 Assessment/Plan VTE Prophylaxis VTE Prophylaxis Intervention: SCD's Lines/Catheters IV Catheter Type (from Nrs): Peripheral IV Urinary Cath still in place: No Assessment/Plan Chief Complaint/Hosp Course Assessment/Plan 1. Status post mechanical fall with chance L1 Fracture, TLSO 3 months whenever upright. PT 2. Closed head injury, with a negative head CT finding. 3. COPD, neb, status post antibiotics, steroid, improving, tapering steroid 4. Liver cirrhosis with L hepatic lobe nodule concerning for Carcinoma, follow up with Dr. Tao outpatient, high risk for surgical intervention at this time 5. Abdominal pain, with x-ray finding of reflex ileus versus intermittent or early mechanical small bowel obstruction. Repeat KUB demonstrated early small bowel obstruction N.p.o., NG tube placement if recommended by general surgery, continue IV antibiotics/Zosyn 6. R sided Pneumonia, resolved 7. Diabetes type 2 -A1c at 8. controlled with diet and NISS only 8. Ileus, status post ciprofloxacin 9. Ankylosing spondylitis of the lower thoracic and lumbar spine with moderate disk space narrowing at L4-5 and L5-S1. 10. Questionable GI bleed. Hemoglobin hematocrit has been stable, GI has been consulted 10. PPx-SCD We will continue monitor patient closely for recommendation management treatment as clinical course Problems: Subjective 24 Hr Interval Summary Free Text/Dictation continues to complain of having abdominal discomfort NG tube in place No bowel movement 4 days Exam/Review of Systems Vital Signs Vitals Vital Signs Date Time Temp Pulse Resp B/P Pulse Ox O2 Delivery O2 Flow Rate FiO2 09/27/16 10:39 77 135/60 09/27/16 08:08 18 93 Nasal Cannula 3.0 09/27/16 08:07 97.2 09/26/16 20:58 32 Intake and Output 09/26/16 09/26/16 09/27/16 15:00 23:00 07:00 Intake Total 900 ml 440 ml Output Total 600 ml 600 ml Balance 300 ml -160 ml Exam General: The patient is well-developed, Not in acute distress. HEENT: Atraumatic, normocephalic. The pupils are equal and round . NG tube in place Neck: Supple with full range of motion. Chest: Normal expansion of the thorax during inspiration Lungs: Clear to auscultation bilaterally Heart: Normal S1-S2, Regular rhythm and rate. Abdomen: Soft , nontender, improvement in distention , bowel sounds are present. Extremities: Normal to inspection, no edema no cyanosis Neurologic: ,The patient is awake, alert Results Result Diagram: 09/27/16 0510 09/27/16 0510 Results 24 hrs Laboratory Tests Test 09/26/16 11:52 09/26/16 16:52 09/26/16 23:26 09/27/16 05:10 Bedside Glucose 152 166 152 Anion Gap 14 Basophils # 0.0 Basophils % 0.0 Blood Urea Nitrogen 23 H Calcium Level 8.4 Carbon Dioxide Level 29 Chloride Level 91 L Creatinine 0.60 L Eosinophils # 0.0 Eosinophils % 0.0 Glucose Level 190 Hematocrit 47.9 Hemoglobin 16.3 Lymphocytes # 0.7 L Lymphocytes % 6.4 L Mean Corpuscular Hemoglobin 33.1 H Mean Corpuscular Hemoglobin Concent 34.1 Mean Corpuscular Volume 97.0 Mean Platelet Volume 9.1 Monocytes # 0.7 Monocytes % 6.2 Neutrophils # 9.8 H Neutrophils % 87.4 H Nucleated Red Blood Cells # 0.0 Nucleated Red Blood Cells % 0.0 Platelet Count 167 Potassium Level 4.2 Red Blood Count 4.94 Red Cell Distribution Width 14.3 Sodium Level 130 L White Blood Count 11.2 H Test 09/27/16 05:48 09/27/16 07:51 Bedside Glucose 169 170 Medications Medications Current Medications Lorazepam (Ativan) 0.5 mg Q6H PRN IV ANXIETY; Start 09/10/16 at 22:30 Ondansetron HCl (Zofran Inj) 4 mg Q6H PRN IV NAUSEA AND/OR VOMITING Last administered on 09/24/16 09:50; Admin Dose 4 MG; Start 09/10/16 at 22:30 Acetaminophen (Tylenol Tab) 650 mg Q6H PRN PO PAIN LEVEL 1-3 OR FEVER; Start at 22:30 Oxycodone/ Acetaminophen (Percocet (5/ 325)) 1 tab Q6H PRN PO PAIN LEVEL 4-6 Last administered on 09/24/16 06:32; Admin Dose 1 TAB; Start 09/10/16 at 22:30 Morphine Sulfate (morphine) 2 mg Q4H PRN IV PAIN LEVEL 7-10 Last administered on 09/26/16 22:40; Admin Dose 2 MG; Start 09/10/16 at 22:30 Heparin Sodium (Porcine) (Heparin (5000 Units/0.5 ml)) 5,000 unit Q12 SC Last administered on 09/27/16 08:44; Admin Dose 5,000 UNIT; Start 09/11/16 at 09:00 Miscellaneous Information 1 ea NOTE XX ; Start 09/11/16 at 21:30 Glucose (Glutose) 15 gm Q15M PRN PO DECREASED GLUCOSE; Start 09/11/16 at 21:30 Glucose (Glutose) 22.5 gm Q15M PRN PO DECREASED GLUCOSE; Start 09/11/16 at 21:30 Dextrose (D50w Syringe) 25 ml Q15M PRN IV DECREASED GLUCOSE; Start 09/11/16 at 21:30 Dextrose (D50w Syringe) 50 ml Q15M PRN IV DECREASED GLUCOSE; Start 09/11/16 at 21:30 Glucagon (Glucagen) 1 mg Q15M PRN IM DECREASED GLUCOSE; Start 09/11/16 at 21:30 Glucose (Glutose) 15 gm Q15M PRN BUCCAL DECREASED GLUCOSE; Start 09/11/16 at 21: 30 Phenol (Cepastat Lozenge) 1 lozenge Q1H PRN MT SORE THROAT Last administered on 09/13/16 02:45; Admin Dose 5 LOZENGE; Start 09/12/16 at 15:00 Senna (Senokot) 1 tab BID PO Last administered on 09/27/16 10:29; Admin Dose 1 TAB; Start 09/13/16 at 21:00 Magnesium Hydroxide (Milk Of Mag) 30 ml DAILY PRN PO CONSTIPATION Last administered on 09/22/16 17:26; Admin Dose 30 ML; Start 09/13/16 at 16:30 Guaifenesin (Mucinex) 600 mg BID PO Last administered on 09/27/16 10:29; Admin Dose 600 MG; Start 09/14/16 at 21:00 Betamethasone/ Clotrimazole (Lotrisone Cr) 1 applic BID TOP Last administered on 09/27/16 10:31; Admin Dose 1 APPLIC; Start 09/15/16 at 21:00 Methylprednisolone Sodium Succinate (Solu-Medrol) 20 mg BID IV Last administered on 09/27/16 08:24; Admin Dose 20 MG; Start 09/18/16 at 21:00 Furosemide (Lasix) 20 mg DAILY@06 IV Last administered on 09/27/16 05:49; Admin Dose 20 MG; Start 09/20/16 at 06:00 Amlodipine Besylate (Norvasc) 5 mg DAILY PO Last administered on 09/27/16 10: 30; Admin Dose 5 MG; Start 09/20/16 at 09:00 Clonidine (Catapres) 0.1 mg Q6H PRN PO ELEVATED SYSTOLIC BP Last administered on 09/21/16 06:43; Admin Dose 0.1 MG; Start 09/19/16 at 08:00 Polyethylene Glycol (Miralax) 17 gm DAILY PRN PO CONSTIPATION Last administered on 09/24/16 06:25; Admin Dose 17 GM; Start 09/23/16 at 11:30 Bisacodyl 10 mg 10 mg DAILY PRN PO CONSTIPATION Last administered on 09/24/16 06:21; Admin Dose 10 MG; Start 09/23/16 at 11:30 Dextrose/Sodium Chloride (D5-1/2ns) 1,000 ml @ 60 mls/hr [id number] IV Last administered on 09/26/16 21:12; Admin Dose 60 MLS/HR; Start 09/24/16 at 11:00 Insulin Aspart NOVOLOG *MILD* ALGORI... Q6 SC Last administered on 09/27/16 05 :57; Admin Dose 1 UNIT; Start 09/25/16 at 00:30 Piperacillin Sod/ Tazobactam Sod (Zosyn 3.375gm/ 100 ml (Pmx)) 100 ml @ 25 mls/ hr Q6H IVPB Last administered on 09/27/16 08:24; Admin Dose 25 MLS/HR; Start 09/26/16 at 15:00 Docusate Sodium (Colace Liquid Cup) 100 mg Q12 PO Last administered on 10:30; Admin Dose 100 MG; Start 09/27/16 at 09:00 BELEM MARQUEZ MD Sep 27, 2016 11:48
[2016-09-27] MEDS ORDERED: NA PHOSPHATE/BIPHOS 133 ML ENEMA PR PRN (12:30)
[2016-09-27] MEDS ORDERED: NA PHOSPHATE/BIPHOS 133 ML ENEMA PR ONE (12:30)
[2016-09-27] MEDS: DEXTROSE 5%-0.45% NACL 1,000 ML IV SCH ×2 (17:35→22:20)
[2016-09-27] MEDS: PANTOPRAZOLE 40 MG INJ IV SCH (17:39)
[2016-09-27 20:44] VITALS: BP 108/58; RESP 20
[2016-09-28] MEDS: INSULIN ASPART [NOVOLOG] 3 ML PEN SC SCH ×4 (00:16→17:35)
[2016-09-28] MEDS: PIPER-TAZO 3.375 GM IV (PMX) 100 ML IVPB SCH ×4 (02:09→21:11)
[2016-09-28] MEDS: PANTOPRAZOLE 40 MG INJ IV SCH ×2 (05:50→17:46)
[2016-09-28] MEDS: FUROSEMIDE 20 MG INJ IV SCH (05:50)
[2016-09-28 07:03] LABS: IRON 165 ug/dl (35-150)
[2016-09-28] MEDS: morphine 2 MG INJ IV PRN (07:07)
[2016-09-28 07:17] LABS: TOTAL IRON BINDING CAPACITY 178 ug/dl (241-421)
[2016-09-28 08:08] VITALS: BP 114/60; RESP 16
[2016-09-28] MEDS: METHYLPREDNISOLONE 40 MG INJ IV SCH ×2 (08:59→21:12)
[2016-09-28] MEDS: DOCUSATE SODIUM 10 MG/ML (10ML CUP) PO SCH ×2 (08:59→21:11)
[2016-09-28] MEDS: AMLODIPINE 5 MG TAB PO SCH (09:00)
[2016-09-28] MEDS: SENNA TAB PO SCH ×2 (09:00→21:11)
[2016-09-28] MEDS: BETAMETHASONE/CLOTRIMAZOLE 15 GM CR TOP SCH ×2 (09:00→23:25)
[2016-09-28] MEDS: GUAIFENESIN LA 600 MG TABSR PO SCH ×2 (09:00→21:11)
[2016-09-28] MEDS: HEPARIN 5,000 UNIT/0.5 ML SYG SC SCH ×2 (09:11→21:29)
[2016-09-28] MEDS: ALBUTEROL/IPRATROPIUM (NEB) 3 ML AMP HHN SCH ×3 (09:31→19:58)
--- NOTE | 2016-09-28 11:12 | CONS ---
Date/Time of Note Date/Time of Note DATE: 09/28/16 TIME: 10:58 Assessment/Plan Assessment/Plan Chief Complaint/Hosp Course Impression: 1. Possible GIB per report 2. Liver cirrhosis likely secondary to patient's h/o heavy EtOH use. 3. LLQ Abdominal pain, with x-ray finding of reflex ileus versus intermittent or early mechanical small bowel obstruction. Repeat KUB demonstrated early small bowel obstruction 4. Questionable GI bleed. Hemoglobin hematocrit has been stable. 5. L hepatic lobe nodule concerning for Carcinoma 6. COPD, neb, status post antibiotics, steroid, improving, tapering steroid Recommendations: 1. f/u with Dr. Tao regarding liver mass 2. continue EOH cessation 3. monitor h/h and occult blood 4. tap water enema for stool in colon seen on CT scan 5. NPO with NG suctioning for ileus Problems: Consultation Date/Type/Reason Admit Date/Time Sep 10, 2016 at 19:04 Type of Consultation: GI Reason for Consultation ileus, constipation, possible GIB Hx of Present Illness 81-year-old gentleman with known comorbid issues including prior alcoholism, diabetes and psoriasis who was admitted through the emergency department at [facility] on 09/10/2016 with back pain and difficulty walking after a fall. CT scan of abdomen and pelvis demonstrated a 2.8 cm peripherally enhancing nodule within left lobe of the liver. Liver dedicated MRI of the abdomen on 09/13/2016 confirmed presence of this mass and showed worrisome features for hepatocellular carcinoma. Liver MRI shows enough worrisome features to warrant recommendation for surgical resection. Current hospitalization is complicated by nausea/vomiting. CT scan and KUB suggests ileus. Per patient's grand-daughter, he has not had a BM x 4 days. mild LLQ abdominal pain. No n/v at this time. No f, c, cp, sob. All point ROS administered, pertinent positives and negatives in HPI otherwise negative. Gastrointestinal: pain Musculoskeletal: back pain Psychological: nl mood/affect, no complaints Past Medical History psoriasis, lumbar fracture s/p mechanical fall Medical History: diabetes Past Surgical History Past Surgical Hx: no surgical history Family History Significant Family History: no pertinent family hx Social History Alcohol Use: sober Smoking Status: Current some day smoker Drug Use: none Exam/Review of Systems Vital Signs Vitals Vital Signs Date Time Temp Pulse Resp B/P Pulse Ox O2 Delivery O2 Flow Rate FiO2 2/18/17 09:31 77 17 96 Nasal Cannula 3.0 09/28/16 08:08 97.4 114/60 09/26/16 20:58 32 Intake and Output 09/27/16 09/27/16 09/28/16 15:00 23:00 07:00 Intake Total 860 ml 650 ml Output Total 300 ml 300 ml Balance 560 ml 350 ml Exam Constitutional: alert, oriented, well developed Psych: nl mood/affect, no complaints Head: atraumatic, normocephalic Eyes: EOMI, nl conjunctiva, nl lids, nl sclera ENMT: mucosa pink and moist, nl external ears & nose, nl lips & teeth, nl nasal mucosa & septum Neck: non-tender, supple Respiratory: clear to auscultation, normal air movement Cardiovascular: nl pulses, regular rate and rhythm Gastrointestinal: bowel sounds, soft, tender (LLQ, without R/G) Musculoskeletal: nl extremities to inspection, nl gait and stance Neurological: nl mental status, nl speech, nl strength Results Result Diagram: 09/27/16 0510 09/27/16 0510 Results 24 hrs Laboratory Tests Test 09/27/16 12:03 09/27/16 16:50 09/28/16 00:13 09/28/16 05:20 Bedside Glucose 171 170 162 Iron Level 165 H Percent Iron Saturation 93 H Total Iron Binding Capacity 178 L Test 09/28/16 05:42 Bedside Glucose 151 Medications Medications Current Medications Lorazepam (Ativan) 0.5 mg Q6H PRN IV ANXIETY; Start 09/10/16 at 22:30 Ondansetron HCl (Zofran Inj) 4 mg Q6H PRN IV NAUSEA AND/OR VOMITING Last administered on 09/24/16 09:50; Admin Dose 4 MG; Start 09/10/16 at 22:30 Acetaminophen (Tylenol Tab) 650 mg Q6H PRN PO PAIN LEVEL 1-3 OR FEVER; Start at 22:30 Oxycodone/ Acetaminophen (Percocet (5/ 325)) 1 tab Q6H PRN PO PAIN LEVEL 4-6 Last administered on 09/24/16 06:32; Admin Dose 1 TAB; Start 09/10/16 at 22:30 Morphine Sulfate (morphine) 2 mg Q4H PRN IV PAIN LEVEL 7-10 Last administered on 09/28/16 07:07; Admin Dose 2 MG; Start 09/10/16 at 22:30 Heparin Sodium (Porcine) (Heparin (5000 Units/0.5 ml)) 5,000 unit Q12 SC Last administered on 09/28/16 09:11; Admin Dose 5,000 UNIT; Start 09/11/16 at 09:00 Miscellaneous Information 1 ea NOTE XX ; Start 09/11/16 at 21:30 Glucose (Glutose) 15 gm Q15M PRN PO DECREASED GLUCOSE; Start 09/11/16 at 21:30 Glucose (Glutose) 22.5 gm Q15M PRN PO DECREASED GLUCOSE; Start 09/11/16 at 21:30 Dextrose (D50w Syringe) 25 ml Q15M PRN IV DECREASED GLUCOSE; Start 09/11/16 at 21:30 Dextrose (D50w Syringe) 50 ml Q15M PRN IV DECREASED GLUCOSE; Start 09/11/16 at 21:30 Glucagon (Glucagen) 1 mg Q15M PRN IM DECREASED GLUCOSE; Start 09/11/16 at 21:30 Glucose (Glutose) 15 gm Q15M PRN BUCCAL DECREASED GLUCOSE; Start 09/11/16 at 21: 30 Phenol (Cepastat Lozenge) 1 lozenge Q1H PRN MT SORE THROAT Last administered on 09/13/16 02:45; Admin Dose 5 LOZENGE; Start 09/12/16 at 15:00 Senna (Senokot) 1 tab BID PO Last administered on 09/28/16 09:00; Admin Dose 1 TAB; Start 09/13/16 at 21:00 Magnesium Hydroxide (Milk Of Mag) 30 ml DAILY PRN PO CONSTIPATION Last administered on 09/22/16 17:26; Admin Dose 30 ML; Start 09/13/16 at 16:30 Guaifenesin (Mucinex) 600 mg BID PO Last administered on 09/28/16 09:00; Admin Dose 600 MG; Start 09/14/16 at 21:00 Betamethasone/ Clotrimazole (Lotrisone Cr) 1 applic BID TOP Last administered on 09/28/16 09:00; Admin Dose 1 APPLIC; Start 09/15/16 at 21:00 Methylprednisolone Sodium Succinate (Solu-Medrol) 20 mg BID IV Last administered on 09/28/16 08:59; Admin Dose 20 MG; Start 09/18/16 at 21:00 Furosemide (Lasix) 20 mg DAILY@06 IV Last administered on 09/28/16 05:50; Admin Dose 20 MG; Start 09/20/16 at 06:00 Amlodipine Besylate (Norvasc) 5 mg DAILY PO Last administered on 09/28/16 09: 00; Admin Dose 5 MG; Start 09/20/16 at 09:00 Clonidine (Catapres) 0.1 mg Q6H PRN PO ELEVATED SYSTOLIC BP Last administered on 09/21/16 06:43; Admin Dose 0.1 MG; Start 09/19/16 at 08:00 Polyethylene Glycol (Miralax) 17 gm DAILY PRN PO CONSTIPATION Last administered on 09/24/16 06:25; Admin Dose 17 GM; Start 09/23/16 at 11:30 Bisacodyl 10 mg 10 mg DAILY PRN PO CONSTIPATION Last administered on 09/24/16 06:21; Admin Dose 10 MG; Start 09/23/16 at 11:30 Dextrose/Sodium Chloride (D5-1/2ns) 1,000 ml @ 60 mls/hr [id number] IV Last administered on 09/27/16 17:35; Admin Dose 60 MLS/HR; Start 09/24/16 at 11:00 Insulin Aspart NOVOLOG *MILD* ALGORI... Q6 SC Last administered on 09/28/16 05 :47; Admin Dose 1 UNIT; Start 09/25/16 at 00:30 Piperacillin Sod/ Tazobactam Sod (Zosyn 3.375gm/ 100 ml (Pmx)) 100 ml @ 25 mls/ hr Q6H IVPB Last administered on 09/28/16 09:11; Admin Dose 25 MLS/HR; Start 09/26/16 at 15:00 Docusate Sodium (Colace Liquid Cup) 100 mg Q12 PO Last administered on 08:59; Admin Dose 100 MG; Start 09/27/16 at 09:00 Sodium Biphosphate/ Sodium Phosphate (Fleet Enema) 133 ml Q48H PRN [place] CONSTIPATION; Start 09/27/16 at 12:30 Pantoprazole (Protonix Iv) 40 mg BID@06,18 IV Last administered on 09/28/16t 05 :50; Admin Dose 40 MG; Start 09/27/16 at 18:00 REDD BLACKWOOD MD Sep 28, 2016 11:10
[2016-09-28 14:22] LABS: ADD UMIC NO; URINE BILIRUBIN (Dip) NEGATIVE (NEGATIVE); URINE BLOOD (Dip) NEGATIVE (NEGATIVE); URINE COLOR LT. YELLOW (YELLOW); URINE GLUCOSE (Dip) NEGATIVE (NEGATIVE); URINE KETONES (Dip) NEGATIVE (NEGATIVE); URINE LEUKOCYTE ESTERASE (Dip) NEGATIVE (NEGATIVE); URINE NITRITE (Dip) NEGATIVE (NEGATIVE); URINE TOTAL PROTEIN (Dip) NEGATIVE (NEGATIVE); URINE UROBILINOGEN (Dip) 0.2 E.U./dL (0.1-1.0)
[2016-09-28] MEDS: DEXTROSE 5%-0.45% NACL 1,000 ML IV SCH (15:00)
--- NOTE | 2016-09-28 16:11 | PN ---
Date/Time of Note Date/Time of Note DATE: 09/28/16 TIME: 15:59 Assessment/Plan VTE Prophylaxis VTE Prophylaxis Intervention: SCD's Lines/Catheters IV Catheter Type (from Nrs): Peripheral IV Urinary Cath still in place: No Assessment/Plan Chief Complaint/Hosp Course Assessment/Plan 81 M with: 1. Status post mechanical fall with chance L1 Fracture, TLSO 3 months whenever upright. PT 2. Closed head injury, with a negative head CT finding. 3. COPD, neb, status post antibiotics, steroid, improving, tapering steroid 4. Liver cirrhosis with L hepatic lobe nodule concerning for Carcinoma, follow up with Dr. Tao outpatient, high risk for surgical intervention at this time 5. Abdominal pain, with x-ray finding of reflex ileus versus intermittent or early mechanical small bowel obstruction. Repeat KUB demonstrated early small bowel obstruction for ow, continue N.p.o., NG tube placement if recommended by general surgery , continue IV antibiotics/Zosyn 6. R sided Pneumonia, resolved 7. Diabetes type 2 -A1c at 8. controlled with diet and NISS only 8. Ileus, status post ciprofloxacin 9. Ankylosing spondylitis of the lower thoracic and lumbar spine with moderate disk space narrowing at L4-5 and L5-S1. 10. Questionable GI bleed. Hemoglobin hematocrit has been stable, GI has been consulted 10. PPx-SCD Problems: Subjective 24 Hr Interval Summary Free Text/Dictation Pt complaining of dysuria - UA ordered. No fevers. Still with NG tube with suction. Exam/Review of Systems Vital Signs Vitals Vital Signs Date Time Temp Pulse Resp B/P Pulse Ox O2 Delivery O2 Flow Rate FiO2 09/28/16 15:00 71 18 96 Nasal Cannula 3.0 09/28/16 08:08 97.4 114/60 09/26/16 20:58 32 Intake and Output 09/27/16 09/27/16 09/28/16 15:00 23:00 07:00 Intake Total 860 ml 650 ml Output Total 300 ml 300 ml Balance 560 ml 350 ml Exam General: The patient is well-developed, Not in acute distress. HEENT: Atraumatic, normocephalic. The pupils are equal and round . NG tube in place Neck: Supple with full range of motion. Chest: Normal expansion of the thorax during inspiration Lungs: Clear to auscultation bilaterally Heart: Normal S1-S2, Regular rhythm and rate. Abdomen: Soft , nontender, improvement in distention , bowel sounds are present. Extremities: Normal to inspection, no edema no cyanosis Neurologic: ,The patient is awake, alert Results Result Diagram: 09/27/16 0510 09/27/16 0510 Results 24 hrs Laboratory Tests Test 09/27/16 16:50 09/28/16 00:13 09/28/16 05:20 09/28/16 05:42 Bedside Glucose 170 162 151 Iron Level 165 H Percent Iron Saturation 93 H Total Iron Binding Capacity 178 L Test 09/28/16 11:42 09/28/16 13:00 Bedside Glucose 137 Urine Bilirubin NEGATIVE Urine Clarity CLEAR Urine Color LT. YELLOW Urine Glucose NEGATIVE Urine Hemoglobin NEGATIVE Urine Ketones NEGATIVE Urine Leukocyte Esterase NEGATIVE Urine Nitrite NEGATIVE Urine Specific [place] 1.020 Urine Total Protein NEGATIVE Urine Urobilinogen 0.2 E.U./dL Urine pH 5.5 Medications Medications Current Medications Lorazepam (Ativan) 0.5 mg Q6H PRN IV ANXIETY; Start 09/10/16 at 22:30 Ondansetron HCl (Zofran Inj) 4 mg Q6H PRN IV NAUSEA AND/OR VOMITING Last administered on 09/24/16 09:50; Admin Dose 4 MG; Start 09/10/16 at 22:30 Acetaminophen (Tylenol Tab) 650 mg Q6H PRN PO PAIN LEVEL 1-3 OR FEVER; Start at 22:30 Oxycodone/ Acetaminophen (Percocet (5/ 325)) 1 tab Q6H PRN PO PAIN LEVEL 4-6 Last administered on 09/24/16 06:32; Admin Dose 1 TAB; Start 09/10/16 at 22:30 Morphine Sulfate (morphine) 2 mg Q4H PRN IV PAIN LEVEL 7-10 Last administered on 09/28/16 07:07; Admin Dose 2 MG; Start 09/10/16 at 22:30 Heparin Sodium (Porcine) (Heparin (5000 Units/0.5 ml)) 5,000 unit Q12 SC Last administered on 09/28/16 09:11; Admin Dose 5,000 UNIT; Start 09/11/16 at 09:00 Miscellaneous Information 1 ea NOTE XX ; Start 09/11/16 at 21:30 Glucose (Glutose) 15 gm Q15M PRN PO DECREASED GLUCOSE; Start 09/11/16 at 21:30 Glucose (Glutose) 22.5 gm Q15M PRN PO DECREASED GLUCOSE; Start 09/11/16 at 21:30 Dextrose (D50w Syringe) 25 ml Q15M PRN IV DECREASED GLUCOSE; Start 09/11/16 at 21:30 Dextrose (D50w Syringe) 50 ml Q15M PRN IV DECREASED GLUCOSE; Start 09/11/16 at 21:30 Glucagon (Glucagen) 1 mg Q15M PRN IM DECREASED GLUCOSE; Start 09/11/16 at 21:30 Glucose (Glutose) 15 gm Q15M PRN BUCCAL DECREASED GLUCOSE; Start 09/11/16 at 21: 30 Phenol (Cepastat Lozenge) 1 lozenge Q1H PRN MT SORE THROAT Last administered on 09/13/16 02:45; Admin Dose 5 LOZENGE; Start 09/12/16 at 15:00 Senna (Senokot) 1 tab BID PO Last administered on 09/28/16 09:00; Admin Dose 1 TAB; Start 09/13/16 at 21:00 Magnesium Hydroxide (Milk Of Mag) 30 ml DAILY PRN PO CONSTIPATION Last administered on 09/22/16 17:26; Admin Dose 30 ML; Start 09/13/16 at 16:30 Guaifenesin (Mucinex) 600 mg BID PO Last administered on 09/28/16 09:00; Admin Dose 600 MG; Start 09/14/16 at 21:00 Betamethasone/ Clotrimazole (Lotrisone Cr) 1 applic BID TOP Last administered on 09/28/16 09:00; Admin Dose 1 APPLIC; Start 09/15/16 at 21:00 Methylprednisolone Sodium Succinate (Solu-Medrol) 20 mg BID IV Last administered on 09/28/16 08:59; Admin Dose 20 MG; Start 09/18/16 at 21:00 Furosemide (Lasix) 20 mg DAILY@06 IV Last administered on 09/28/16 05:50; Admin Dose 20 MG; Start 09/20/16 at 06:00 Amlodipine Besylate (Norvasc) 5 mg DAILY PO Last administered on 09/28/16 09: 00; Admin Dose 5 MG; Start 09/20/16 at 09:00 Clonidine (Catapres) 0.1 mg Q6H PRN PO ELEVATED SYSTOLIC BP Last administered on 09/21/16 06:43; Admin Dose 0.1 MG; Start 09/19/16 at 08:00 Polyethylene Glycol (Miralax) 17 gm DAILY PRN PO CONSTIPATION Last administered on 09/24/16 06:25; Admin Dose 17 GM; Start 09/23/16 at 11:30 Bisacodyl 10 mg 10 mg DAILY PRN PO CONSTIPATION Last administered on 09/24/16 06:21; Admin Dose 10 MG; Start 09/23/16 at 11:30 Dextrose/Sodium Chloride (D5-1/2ns) 1,000 ml @ 60 mls/hr [id number] IV Last administered on 09/27/16 17:35; Admin Dose 60 MLS/HR; Start 09/24/16 at 11:00 Insulin Aspart NOVOLOG *MILD* ALGORI... Q6 SC Last administered on 09/28/16 05 :47; Admin Dose 1 UNIT; Start 09/25/16 at 00:30 Piperacillin Sod/ Tazobactam Sod (Zosyn 3.375gm/ 100 ml (Pmx)) 100 ml @ 25 mls/ hr Q6H IVPB Last administered on 09/28/16 15:19; Admin Dose 25 MLS/HR; Start 09/26/16 at 15:00 Docusate Sodium (Colace Liquid Cup) 100 mg Q12 PO Last administered on 08:59; Admin Dose 100 MG; Start 09/27/16 at 09:00 Sodium Biphosphate/ Sodium Phosphate (Fleet Enema) 133 ml Q48H PRN [place] CONSTIPATION; Start 09/27/16 at 12:30 Pantoprazole (Protonix Iv) 40 mg BID@,18 IV Last administered on 09/28/16 05 :50; Admin Dose 40 MG; Start 09/27/16 at 18:00 LULA BALTAZAR Sep 28, 2016 16:10
[2016-09-28 20:49] VITALS: BP 108/61; RESP 20
[2016-09-29] MEDS: PIPER-TAZO 3.375 GM IV (PMX) 100 ML IVPB SCH ×4 (02:26→21:13)
[2016-09-29] MEDS: DEXTROSE 5%-0.45% NACL 1,000 ML IV SCH ×2 (05:48→22:00)
[2016-09-29] MEDS: PANTOPRAZOLE 40 MG INJ IV SCH ×2 (05:48→17:44)
[2016-09-29] MEDS: FUROSEMIDE 20 MG INJ IV SCH (05:54)
[2016-09-29] MEDS: INSULIN ASPART [NOVOLOG] 3 ML PEN SC SCH ×5 (05:56→23:52)
[2016-09-29 06:03] LABS: POTASSIUM 4.1 mmol/L (3.5-5.1)
[2016-09-29 06:05] LABS: CREATININE 0.65 mg/dl (0.61-1.24)
[2016-09-29 06:06] LABS: CALCIUM 8.5 mg/dl (8.4-10.2)
[2016-09-29 06:49] LABS: HEMATOCRIT 45.7 % (42.0-52.0); HEMOGLOBIN 15.7 g/dl (14.0-18.0); LYMPHOCYTES # 0.7 10^3/ul (0.8-2.9); LYMPHOCYTES % 8.8 % (15.0-51.0); MEAN CORPUSCULAR HEMOGLOBIN 33.1 pg (29.0-33.0); MEAN CORPUSCULAR HGB CONC 34.4 g/dl (32.0-37.0); MEAN CORPUSCULAR VOLUME 96.3 fl (82.0-101.0); MEAN PLATELET VOLUME 8.9 fl (7.4-10.4); MONOCYTE # 0.6 10^3/ul (0.3-0.9); MONOCYTES % 6.7 % (0.0-11.0); NEUTROPHIL # 7.1 10^3/ul (1.6-7.5); NEUTROPHILS % 84.5 % (39.0-77.0); PLATELET COUNT 153 10^3/UL (140-440); RED BLOOD COUNT 4.75 10^6/ul (4.70-6.10); RED CELL DISTRIBUTION WIDTH 14.5 % (11.5-14.5); UNCORRECTED WBC 8.4 10^3/ul (4.8-10.8); WHITE BLOOD COUNT 8.4 10^3/ul (4.8-10.8)
[2016-09-29 07:12] LABS: CONDITION 1
--- NOTE | 2016-09-29 07:56 | RADRPT ---
PROCEDURE: XR Chest. CLINICAL INDICATION: Cough. Pleural effusion. TECHNIQUE: Portable single view of the chest COMPARISON: 09/24 FINDINGS: Cardiomegaly is less pronounced. Nasogastric tube is again seen in place. Side-hole likely remains at the level of the gastroesophageal junction. Bilateral pleural effusions are again seen. The ri ght is likely subpulmonic. Mild pulmonary vascular congestion. Slightly improved right lung base a eration. IMPRESSION: Slightly improved right base aeration. Otherwise no interval change. The side hole of the nasogast jagdish tube is likely at the gastroesophageal junction. This could be advanced 6 or 7 cm for more dist al position if desired. RPTAT: [facility] Physician Abhinav Date Time Electronically viewed and signed by Geno Elam Physician on 09/29/2016 07:56 ZACK/
[2016-09-29 08:12] VITALS: BP 119/62; RESP 16
[2016-09-29] MEDS: AMLODIPINE 5 MG TAB PO SCH (08:22)
[2016-09-29] MEDS: DOCUSATE SODIUM 10 MG/ML (10ML CUP) PO SCH ×2 (08:22→21:14)
[2016-09-29] MEDS: METHYLPREDNISOLONE 40 MG INJ IV SCH ×2 (08:22→21:14)
[2016-09-29] MEDS: GUAIFENESIN LA 600 MG TABSR PO SCH ×2 (08:22→21:14)
[2016-09-29] MEDS: SENNA TAB PO SCH ×2 (08:22→21:14)
[2016-09-29] MEDS: BETAMETHASONE/CLOTRIMAZOLE 15 GM CR TOP SCH ×2 (08:23→21:29)
[2016-09-29] MEDS: ALBUTEROL/IPRATROPIUM (NEB) 3 ML AMP HHN SCH ×3 (09:09→20:04)
[2016-09-29] MEDS: HEPARIN 5,000 UNIT/0.5 ML SYG SC SCH ×2 (09:13→21:21)
--- NOTE | 2016-09-29 10:27 | PN ---
Date/Time of Note Date/Time of Note DATE: 09/29/16 TIME: 10:26 Assessment/Plan VTE Prophylaxis VTE Prophylaxis Intervention: SCD's Lines/Catheters IV Catheter Type (from Nrs): Peripheral IV Urinary Cath still in place: No Assessment/Plan Chief Complaint/Hosp Course Assessment/Plan 81 M with: 1. Status post mechanical fall with chance L1 Fracture, TLSO 3 months whenever upright. PT 2. Closed head injury, with a negative head CT finding. 3. COPD, neb, status post antibiotics, steroid, improving, tapering steroid 4. Liver cirrhosis with L hepatic lobe nodule concerning for Carcinoma, follow up with Dr. Tao outpatient, high risk for surgical intervention at this time 5. Abdominal pain, with x-ray finding of reflex ileus versus intermittent or early mechanical small bowel obstruction. Repeat KUB demonstrated early small bowel obstruction for ow, continue N.p.o., NG tube placement if recommended by general surgery , continue IV antibiotics/Zosyn 6. R sided Pneumonia, resolved 7. Diabetes type 2 -A1c at 8. controlled with diet and NISS only 8. Ileus, status post ciprofloxacin 9. Ankylosing spondylitis of the lower thoracic and lumbar spine with moderate disk space narrowing at L4-5 and L5-S1. 10. Questionable GI bleed. Hemoglobin hematocrit has been stable, GI has been consulted 10. PPx-SCD Problems: Subjective 24 Hr Interval Summary Free Text/Dictation Still with NG tube, no events overnight. Exam/Review of Systems Vital Signs Vitals Vital Signs Date Time Temp Pulse Resp B/P Pulse Ox O2 Delivery O2 Flow Rate FiO2 09/29/16 09:12 3.0 09/29/16 09:11 70 20 96 Nasal Cannula 09/29/16 08:12 97.5 119/62 09/26/16 20:58 32 Intake and Output 09/28/16 09/28/16 09/29/16 15:00 23:00 07:00 Intake Total 100 ml 350 ml 500 ml Output Total 570 ml 400 ml Balance 100 ml -220 ml 100 ml Exam General: The patient is well-developed, Not in acute distress. HEENT: Atraumatic, normocephalic. The pupils are equal and round . NG tube in place Neck: Supple with full range of motion. Chest: Normal expansion of the thorax during inspiration Lungs: Clear to auscultation bilaterally Heart: Normal S1-S2, Regular rhythm and rate. Abdomen: Soft , nontender, improvement in distention , bowel sounds are present. Extremities: Normal to inspection, no edema no cyanosis Neurologic: ,The patient is awake, alert Results Result Diagram: 09/29/16 0507 09/29/16 0507 Results 24 hrs Laboratory Tests Test 09/28/16 11:42 09/28/16 13:00 09/28/16 17:30 09/28/16 23:20 Bedside Glucose 137 132 126 Urine Bilirubin NEGATIVE Urine Clarity CLEAR Urine Color LT. YELLOW Urine Glucose NEGATIVE Urine Hemoglobin NEGATIVE Urine Ketones NEGATIVE Urine Leukocyte Esterase NEGATIVE Urine Nitrite NEGATIVE Urine Specific [place] 1.020 Urine Total Protein NEGATIVE Urine Urobilinogen 0.2 E.U./dL Urine pH 5.5 Test 09/29/16 05:07 09/29/16 05:56 Anion Gap 12 Basophils # 0.0 Basophils % 0.0 Blood Urea Nitrogen 30 H Calcium Level 8.5 Carbon Dioxide Level 29 Chloride Level 96 L Creatinine 0.65 Eosinophils # 0.0 Eosinophils % 0.0 Glucose Level 146 # Hematocrit 45.7 Hemoglobin 15.7 Lymphocytes # 0.7 L Lymphocytes % 8.8 L Magnesium Level 2.0 Mean Corpuscular Hemoglobin 33.1 H Mean Corpuscular Hemoglobin Concent 34.4 Mean Corpuscular Volume 96.3 Mean Platelet Volume 8.9 Monocytes # 0.6 Monocytes % 6.7 Neutrophils # 7.1 Neutrophils % 84.5 H Nucleated Red Blood Cells # 0.0 Nucleated Red Blood Cells % 0.0 Platelet Count 153 Potassium Level 4.1 Red Blood Count 4.75 Red Cell Distribution Width 14.5 Sodium Level 133 L White Blood Count 8.4 # Bedside Glucose 123 Medications Medications Current Medications Lorazepam (Ativan) 0.5 mg Q6H PRN IV ANXIETY; Start 09/10/16 at 22:30 Ondansetron HCl (Zofran Inj) 4 mg Q6H PRN IV NAUSEA AND/OR VOMITING Last administered on 09/24/16 09:50; Admin Dose 4 MG; Start 09/10/16 at 22:30 Acetaminophen (Tylenol Tab) 650 mg Q6H PRN PO PAIN LEVEL 1-3 OR FEVER; Start at 22:30 Oxycodone/ Acetaminophen (Percocet (5/ 325)) 1 tab Q6H PRN PO PAIN LEVEL 4-6 Last administered on 09/24/16 06:32; Admin Dose 1 TAB; Start 09/10/16 at 22:30 Morphine Sulfate (morphine) 2 mg Q4H PRN IV PAIN LEVEL 7-10 Last administered on 09/28/16 07:07; Admin Dose 2 MG; Start 09/10/16 at 22:30 Heparin Sodium (Porcine) (Heparin (5000 Units/0.5 ml)) 5,000 unit Q12 SC Last administered on 09/29/16 09:13; Admin Dose 5,000 UNIT; Start 09/11/16 at 09:00 Miscellaneous Information 1 ea NOTE XX ; Start 09/11/16 at 21:30 Glucose (Glutose) 15 gm Q15M PRN PO DECREASED GLUCOSE; Start 09/11/16 at 21:30 Glucose (Glutose) 22.5 gm Q15M PRN PO DECREASED GLUCOSE; Start 09/11/16 at 21:30 Dextrose (D50w Syringe) 25 ml Q15M PRN IV DECREASED GLUCOSE; Start 09/11/16 at 21:30 Dextrose (D50w Syringe) 50 ml Q15M PRN IV DECREASED GLUCOSE; Start 09/11/16 at 21:30 Glucagon (Glucagen) 1 mg Q15M PRN IM DECREASED GLUCOSE; Start 09/11/16 at 21:30 Glucose (Glutose) 15 gm Q15M PRN BUCCAL DECREASED GLUCOSE; Start 09/11/16 at 21: 30 Phenol (Cepastat Lozenge) 1 lozenge Q1H PRN MT SORE THROAT Last administered on 09/13/16 02:45; Admin Dose 5 LOZENGE; Start 09/12/16 at 15:00 Senna (Senokot) 1 tab BID PO Last administered on 09/29/16 08:22; Admin Dose 1 TAB; Start 09/13/16 at 21:00 Magnesium Hydroxide (Milk Of Mag) 30 ml DAILY PRN PO CONSTIPATION Last administered on 09/22/16 17:26; Admin Dose 30 ML; Start 09/13/16 at 16:30 Guaifenesin (Mucinex) 600 mg BID PO Last administered on 09/29/16 08:22; Admin Dose 600 MG; Start 09/14/16 at 21:00 Betamethasone/ Clotrimazole (Lotrisone Cr) 1 applic BID TOP Last administered on 09/29/16 08:23; Admin Dose 1 APPLIC; Start 09/15/16 at 21:00 Methylprednisolone Sodium Succinate (Solu-Medrol) 20 mg BID IV Last administered on 09/29/16 08:22; Admin Dose 20 MG; Start 09/18/16 at 21:00 Furosemide (Lasix) 20 mg DAILY@06 IV Last administered on 09/29/16 05:54; Admin Dose 20 MG; Start 09/20/16 at 06:00 Amlodipine Besylate (Norvasc) 5 mg DAILY PO Last administered on 09/29/16 08: 22; Admin Dose 5 MG; Start 09/20/16 at 09:00 Clonidine (Catapres) 0.1 mg Q6H PRN PO ELEVATED SYSTOLIC BP Last administered on 09/21/16 06:43; Admin Dose 0.1 MG; Start 09/19/16 at 08:00 Polyethylene Glycol (Miralax) 17 gm DAILY PRN PO CONSTIPATION Last administered on 09/24/16 06:25; Admin Dose 17 GM; Start 09/23/16 at 11:30 Bisacodyl 10 mg 10 mg DAILY PRN PO CONSTIPATION Last administered on 09/24/16 06:21; Admin Dose 10 MG; Start 09/23/16 at 11:30 Dextrose/Sodium Chloride (D5-1/2ns) 1,000 ml @ 60 mls/hr [id number] IV Last administered on 09/29/16 05:48; Admin Dose 60 MLS/HR; Start 09/24/16 at 11:00 Insulin Aspart NOVOLOG *MILD* ALGORI... Q6 SC Last administered on 09/28/16 05 :47; Admin Dose 1 UNIT; Start 09/25/16 at 00:30 Piperacillin Sod/ Tazobactam Sod (Zosyn 3.375gm/ 100 ml (Pmx)) 100 ml @ 25 mls/ hr Q6H IVPB Last administered on 09/29/16 08:23; Admin Dose 25 MLS/HR; Start 09/26/16 at 15:00 Docusate Sodium (Colace Liquid Cup) 100 mg Q12 PO Last administered on 08:22; Admin Dose 100 MG; Start 09/27/16 at 09:00 Sodium Biphosphate/ Sodium Phosphate (Fleet Enema) 133 ml Q48H PRN [place] CONSTIPATION; Start 09/27/16 at 12:30 Pantoprazole (Protonix Iv) 40 mg BID@,18 IV Last administered on 09/29/16t 05 :48; Admin Dose 40 MG; Start 09/27/16 at 18:00 LULA BALTAZAR Sep 29, 2016 10:27
--- NOTE | 2016-09-29 15:03 | CONS ---
Date/Time of Note Date/Time of Note DATE: 09/29/16 TIME: 14:57 Assessment/Plan Assessment/Plan Chief Complaint/Hosp Course Impression: 1. Possible GIB per report but h/h stable and normal 2. Liver cirrhosis likely secondary to patient's h/o heavy EtOH use. 3. LLQ Abdominal pain, KUB demonstrated early small bowel obstruction 4. COPD, neb, status post antibiotics, steroid, improving, tapering steroid 5. L hepatic lobe nodule concerning for Carcinoma Recommendations: 1. f/u with Dr. Tao regarding liver mass 2. continue EOH cessation 3. monitor h/h and occult blood, but unlikely GIB 4. NPO with NG suctioning for ileus 5. ordered SBFT to see if there is transition point or mechanical SBP. 6. consider TPN if continued SBO Problems: Consultation Date/Type/Reason Admit Date/Time Sep 10, 2016 at 19:04 Initial Consult Date Type of Consultation: GI 24 HR Interval Summary Free Text/Dictation daughter is concerned about patient not eating for few days, patient reports epigastric pain Exam/Review of Systems Vital Signs Vitals Vital Signs Date Time Temp Pulse Resp B/P Pulse Ox O2 Delivery O2 Flow Rate FiO2 09/29/16 09:12 3.0 09/29/16 09:11 70 20 96 Nasal Cannula 09/29/16 08:12 97.5 119/62 09/26/16 20:58 32 Intake and Output 09/28/16 09/28/16 09/29/16 15:00 23:00 07:00 Intake Total 100 ml 350 ml 500 ml Output Total 570 ml 400 ml Balance 100 ml -220 ml 100 ml Exam Constitutional: alert, frail, oriented, well developed Psych: anxiety, nl mood/affect, no complaints Head: atraumatic, normocephalic Eyes: EOMI, nl conjunctiva, nl lids, nl sclera ENMT: mucosa pink and moist, nl external ears & nose, nl lips & teeth, nl nasal mucosa & septum Neck: non-tender, supple Respiratory: clear to auscultation, normal air movement Cardiovascular: nl pulses, regular rate and rhythm Gastrointestinal: bowel sounds, non-tender, soft, tender (diffusely) Results Result Diagram: 09/29/16 0507 09/29/16 0507 Results 24 hrs Laboratory Tests Test 09/28/16 17:30 09/28/16 23:20 09/29/16 05:07 09/29/16 05:56 Bedside Glucose 132 126 123 Anion Gap 12 Basophils # 0.0 Basophils % 0.0 Blood Urea Nitrogen 30 H Calcium Level 8.5 Carbon Dioxide Level 29 Chloride Level 96 L Creatinine 0.65 Eosinophils # 0.0 Eosinophils % 0.0 Glucose Level 146 # Hematocrit 45.7 Hemoglobin 15.7 Lymphocytes # 0.7 L Lymphocytes % 8.8 L Magnesium Level 2.0 Mean Corpuscular Hemoglobin 33.1 H Mean Corpuscular Hemoglobin Concent 34.4 Mean Corpuscular Volume 96.3 Mean Platelet Volume 8.9 Monocytes # 0.6 Monocytes % 6.7 Neutrophils # 7.1 Neutrophils % 84.5 H Nucleated Red Blood Cells # 0.0 Nucleated Red Blood Cells % 0.0 Platelet Count 153 Potassium Level 4.1 Red Blood Count 4.75 Red Cell Distribution Width 14.5 Sodium Level 133 L White Blood Count 8.4 # Test 09/29/16 11:46 Bedside Glucose 120 Medications Medications Current Medications Lorazepam (Ativan) 0.5 mg Q6H PRN IV ANXIETY; Start 09/10/16 at 22:30 Ondansetron HCl (Zofran Inj) 4 mg Q6H PRN IV NAUSEA AND/OR VOMITING Last administered on 09/24/16 09:50; Admin Dose 4 MG; Start 09/10/16 at 22:30 Acetaminophen (Tylenol Tab) 650 mg Q6H PRN PO PAIN LEVEL 1-3 OR FEVER; Start at 22:30 Oxycodone/ Acetaminophen (Percocet (5/ 325)) 1 tab Q6H PRN PO PAIN LEVEL 4-6 Last administered on 09/24/16 06:32; Admin Dose 1 TAB; Start 09/10/16 at 22:30 Morphine Sulfate (morphine) 2 mg Q4H PRN IV PAIN LEVEL 7-10 Last administered on 09/28/16 07:07; Admin Dose 2 MG; Start 09/10/16 at 22:30 Heparin Sodium (Porcine) (Heparin (5000 Units/0.5 ml)) 5,000 unit Q12 SC Last administered on 09/29/16 09:13; Admin Dose 5,000 UNIT; Start 09/11/16 at 09:00 Miscellaneous Information 1 ea NOTE XX ; Start 09/11/16 at 21:30 Glucose (Glutose) 15 gm Q15M PRN PO DECREASED GLUCOSE; Start 09/11/16 at 21:30 Glucose (Glutose) 22.5 gm Q15M PRN PO DECREASED GLUCOSE; Start 09/11/16 at 21:30 Dextrose (D50w Syringe) 25 ml Q15M PRN IV DECREASED GLUCOSE; Start 09/11/16 at 21:30 Dextrose (D50w Syringe) 50 ml Q15M PRN IV DECREASED GLUCOSE; Start 09/11/16 at 21:30 Glucagon (Glucagen) 1 mg Q15M PRN IM DECREASED GLUCOSE; Start 09/11/16 at 21:30 Glucose (Glutose) 15 gm Q15M PRN BUCCAL DECREASED GLUCOSE; Start 09/11/16 at 21: 30 Phenol (Cepastat Lozenge) 1 lozenge Q1H PRN [place] SORE THROAT Last administered on 09/13/16 02:45; Admin Dose 5 LOZENGE; Start 09/12/16 at 15:00 Senna (Senokot) 1 tab BID PO Last administered on 09/29/16 08:22; Admin Dose 1 TAB; Start 09/13/16 at 21:00 Magnesium Hydroxide (Milk Of Mag) 30 ml DAILY PRN PO CONSTIPATION Last administered on 09/22/16 17:26; Admin Dose 30 ML; Start 09/13/16 at 16:30 Guaifenesin (Mucinex) 600 mg BID PO Last administered on 09/29/16 08:22; Admin Dose 600 MG; Start 09/14/16 at 21:00 Betamethasone/ Clotrimazole (Lotrisone Cr) 1 applic BID TOP Last administered on 09/29/16 08:23; Admin Dose 1 APPLIC; Start 09/15/16 at 21:00 Methylprednisolone Sodium Succinate (Solu-Medrol) 20 mg BID IV Last administered on 09/29/16 08:22; Admin Dose 20 MG; Start 09/18/16 at 21:00 Furosemide (Lasix) 20 mg DAILY@06 IV Last administered on 09/29/16 05:54; Admin Dose 20 MG; Start 09/20/16 at 06:00 Amlodipine Besylate (Norvasc) 5 mg DAILY PO Last administered on 09/29/16 08: 22; Admin Dose 5 MG; Start 09/20/16 at 09:00 Clonidine (Catapres) 0.1 mg Q6H PRN PO ELEVATED SYSTOLIC BP Last administered on 09/21/16 06:43; Admin Dose 0.1 MG; Start 09/19/16 at 08:00 Polyethylene Glycol (Miralax) 17 gm DAILY PRN PO CONSTIPATION Last administered on 09/24/16 06:25; Admin Dose 17 GM; Start 09/23/16 at 11:30 Bisacodyl 10 mg 10 mg DAILY PRN PO CONSTIPATION Last administered on 09/24/16 06:21; Admin Dose 10 MG; Start 09/23/16 at 11:30 Dextrose/Sodium Chloride (D5-1/2ns) 1,000 ml @ 60 mls/hr [id number] IV Last administered on 09/29/16 05:48; Admin Dose 60 MLS/HR; Start 09/24/16 at 11:00 Insulin Aspart NOVOLOG *MILD* ALGORI... Q6 SC Last administered on 09/28/16 05 :47; Admin Dose 1 UNIT; Start 09/25/16 at 00:30 Piperacillin Sod/ Tazobactam Sod (Zosyn 3.375gm/ 100 ml (Pmx)) 100 ml @ 25 mls/ hr Q6H IVPB Last administered on 09/29/16 14:26; Admin Dose 25 MLS/HR; Start 09/26/16 at 15:00 Docusate Sodium (Colace Liquid Cup) 100 mg Q12 PO Last administered on 08:22; Admin Dose 100 MG; Start 09/27/16 at 09:00 Sodium Biphosphate/ Sodium Phosphate (Fleet Enema) 133 ml Q48H PRN [place] CONSTIPATION; Start 09/27/16 at 12:30 Pantoprazole (Protonix Iv) 40 mg BID@06,18 IV Last administered on 09/29/16 05 :48; Admin Dose 40 MG; Start 09/27/16 at 18:00 REDD BLACKWOOD MD Sep 29, 2016 15:03
[2016-09-29] MEDS: morphine 2 MG INJ IV PRN (17:54)
[2016-09-29 19:34] VITALS: BP 161/75; RESP 18
[2016-09-29 19:44] VITALS: BP 112/59; RESP 20
--- NOTE | 2016-09-29 21:20 | RADRPT ---
PROCEDURE: XR Abdomen. CLINICAL INDICATION: Ileus versus mechanical obstruction. TECHNIQUE: AP abdomen x-ray. COMPARISON: 09/24/2016 FINDINGS: Retained oral contrast within the colon. Nonspecific bowel gas pattern without evidence of obstruct ion or free air. NG tube tip overlying the fundus of the stomach with side port at the gastroesopha geal junction. Ankylosing spondylitis. There are no abnormal calcifications overlying the urinary t racts. IMPRESSION: 1. No free air or obstruction. Retain oral contrast in the colon . 2. NG tube tip overlying the fundus of the stomach the side port at the gastroesophageal junction. 3. Ankylosing spondylitis. RPTAT:AAJJ Physician Mariel Date Time Electronically viewed and signed by Physician Mariel on 09/29/2016 21:20 AL/
[2016-09-30] MEDS: PIPER-TAZO 3.375 GM IV (PMX) 100 ML IVPB SCH ×4 (03:16→21:20)
[2016-09-30] MEDS: INSULIN ASPART [NOVOLOG] 3 ML PEN SC SCH ×3 (06:00→17:19)
--- NOTE | 2016-09-30 06:06 | CONS ---
Date/Time of Note Date/Time of Note DATE: 09/30/16 TIME: 06:04 Assessment/Plan Assessment/Plan Chief Complaint/Hosp Course Impression: 1. Possible GIB per report but h/h stable and normal 2. Liver cirrhosis likely secondary to patient's h/o heavy EtOH use. 3. pSBO: resolved on SBFT on 09-29-16 4. COPD, neb, status post antibiotics, steroid, improving, tapering steroid 5. L hepatic lobe nodule concerning for Carcinoma Recommendations: 1. f/u with Dr. Tao regarding resection of liver mass 2. continue EOH cessation 3. monitor h/h and occult blood, but unlikely GIB 4. clamp NGT and trial of clear liquid diet 5. Dr. Hoffmann to resume care tomorrow. Problems: Consultation Date/Type/Reason Admit Date/Time Sep 10, 2016 at 19:04 Type of Consultation: GI 24 HR Interval Summary Free Text/Dictation got SBFT which showed resolved ileus or pSBO as contrast in colon Constitutional: improved Exam/Review of Systems Vital Signs Vitals Vital Signs Date Time Temp Pulse Resp B/P Pulse Ox O2 Delivery O2 Flow Rate FiO2 09/30/16 01:05 3.0 09/29/16 20:04 71 24 94 Nasal Cannula 09/29/16 19:44 98.5 112/59 09/26/16 20:58 32 Intake and Output 09/29/16 09/29/16 09/30/16 15:00 23:00 07:00 Intake Total 100 ml 2030 ml 520 ml Output Total 200 ml 100 ml Balance 100 ml 1830 ml 420 ml Exam Psych: nl mood/affect, no complaints Head: atraumatic, normocephalic Eyes: EOMI, nl conjunctiva, nl lids, nl sclera ENMT: mucosa pink and moist, nl external ears & nose, nl lips & teeth, nl nasal mucosa & septum Neck: non-tender, supple Respiratory: clear to auscultation, normal air movement Cardiovascular: nl pulses, regular rate and rhythm Gastrointestinal: bowel sounds, soft Results Result Diagram: 09/29/16 0507 09/29/16 0507 Results 24 hrs Laboratory Tests Test 09/29/16 11:46 09/29/16 17:44 09/29/16 23:52 Bedside Glucose 120 106 128 Medications Medications Current Medications Lorazepam (Ativan) 0.5 mg Q6H PRN IV ANXIETY; Start 09/10/16 at 22:30 Ondansetron HCl (Zofran Inj) 4 mg Q6H PRN IV NAUSEA AND/OR VOMITING Last administered on 09/24/16 09:50; Admin Dose 4 MG; Start 09/10/16 at 22:30 Acetaminophen (Tylenol Tab) 650 mg Q6H PRN PO PAIN LEVEL 1-3 OR FEVER; Start at 22:30 Oxycodone/ Acetaminophen (Percocet (5/ 325)) 1 tab Q6H PRN PO PAIN LEVEL 4-6 Last administered on 09/24/16 06:32; Admin Dose 1 TAB; Start 09/10/16 at 22:30 Morphine Sulfate (morphine) 2 mg Q4H PRN IV PAIN LEVEL 7-10 Last administered on 09/29/16 17:54; Admin Dose 2 MG; Start 09/10/16 at 22:30 Heparin Sodium (Porcine) (Heparin (5000 Units/0.5 ml)) 5,000 unit Q12 SC Last administered on 09/29/16 21:21; Admin Dose 5,000 UNIT; Start 09/11/16 at 09:00 Miscellaneous Information 1 ea NOTE XX ; Start 09/11/16 at 21:30 Glucose (Glutose) 15 gm Q15M PRN PO DECREASED GLUCOSE; Start 09/11/16 at 21:30 Glucose (Glutose) 22.5 gm Q15M PRN PO DECREASED GLUCOSE; Start 09/11/16 at 21:30 Dextrose (D50w Syringe) 25 ml Q15M PRN IV DECREASED GLUCOSE; Start 09/11/16 at 21:30 Dextrose (D50w Syringe) 50 ml Q15M PRN IV DECREASED GLUCOSE; Start 09/11/16 at 21:30 Glucagon (Glucagen) 1 mg Q15M PRN IM DECREASED GLUCOSE; Start 09/11/16 at 21:30 Glucose (Glutose) 15 gm Q15M PRN BUCCAL DECREASED GLUCOSE; Start 09/11/16 at 21: 30 Phenol (Cepastat Lozenge) 1 lozenge Q1H PRN [place] SORE THROAT Last administered on 09/13/16 02:45; Admin Dose 5 LOZENGE; Start 09/12/16 at 15:00 Senna (Senokot) 1 tab BID PO Last administered on 09/29/16 21:14; Admin Dose 1 TAB; Start 09/13/16 at 21:00 Magnesium Hydroxide (Milk Of Mag) 30 ml DAILY PRN PO CONSTIPATION Last administered on 09/22/16 17:26; Admin Dose 30 ML; Start 09/13/16 at 16:30 Guaifenesin (Mucinex) 600 mg BID PO Last administered on 09/29/16 21:14; Admin Dose 600 MG; Start 09/14/16 at 21:00 Betamethasone/ Clotrimazole (Lotrisone Cr) 1 applic BID TOP Last administered on 09/29/16 21:29; Admin Dose 1 APPLIC; Start 09/15/16 at 21:00 Methylprednisolone Sodium Succinate (Solu-Medrol) 20 mg BID IV Last administered on 09/29/16 21:14; Admin Dose 20 MG; Start 09/18/16 at 21:00 Furosemide (Lasix) 20 mg DAILY@06 IV Last administered on 09/29/16 05:54; Admin Dose 20 MG; Start 09/20/16 at 06:00 Amlodipine Besylate (Norvasc) 5 mg DAILY PO Last administered on 09/29/16 08: 22; Admin Dose 5 MG; Start 09/20/16 at 09:00 Clonidine (Catapres) 0.1 mg Q6H PRN PO ELEVATED SYSTOLIC BP Last administered on 09/21/16 06:43; Admin Dose 0.1 MG; Start 09/19/16 at 08:00 Polyethylene Glycol (Miralax) 17 gm DAILY PRN PO CONSTIPATION Last administered on 09/24/16 06:25; Admin Dose 17 GM; Start 09/23/16 at 11:30 Bisacodyl 10 mg 10 mg DAILY PRN PO CONSTIPATION Last administered on 09/24/16 06:21; Admin Dose 10 MG; Start 09/23/16 at 11:30 Dextrose/Sodium Chloride (D5-1/2ns) 1,000 ml @ 80 mls/hr [id number] IV Last administered on 09/29/16 05:48; Admin Dose 60 MLS/HR; Start 09/24/16 at 11:00 Insulin Aspart NOVOLOG *MILD* ALGORI... Q6 SC Last administered on 09/28/16 05 :47; Admin Dose 1 UNIT; Start 09/25/16 at 00:30 Piperacillin Sod/ Tazobactam Sod (Zosyn 3.375gm/ 100 ml (Pmx)) 100 ml @ 25 mls/ hr Q6H IVPB Last administered on 09/30/16 03:16; Admin Dose 25 MLS/HR; Start 09/26/16 at 15:00 Docusate Sodium (Colace Liquid Cup) 100 mg Q12 PO Last administered on 21:14; Admin Dose 100 MG; Start 09/27/16 at 09:00 Sodium Biphosphate/ Sodium Phosphate (Fleet Enema) 133 ml Q48H PRN [place] CONSTIPATION; Start 09/27/16 at 12:30 Pantoprazole (Protonix Iv) 40 mg BID@06,18 IV Last administered on 09/29/16 17 :44; Admin Dose 40 MG; Start 09/27/16 at 18:00 REDD BLACKWOOD MD Sep 30, 2016 06:06
[2016-09-30] MEDS: PANTOPRAZOLE 40 MG INJ IV SCH ×2 (06:25→17:04)
[2016-09-30] MEDS: FUROSEMIDE 20 MG INJ IV SCH (06:26)
[2016-09-30 07:43] VITALS: BP 119/59; RESP 16
[2016-09-30] MEDS: DOCUSATE SODIUM 10 MG/ML (10ML CUP) PO SCH ×2 (08:04→21:21)
[2016-09-30] MEDS: METHYLPREDNISOLONE 40 MG INJ IV SCH ×2 (08:04→21:21)
[2016-09-30] MEDS: AMLODIPINE 5 MG TAB PO SCH (08:05)
[2016-09-30] MEDS: BETAMETHASONE/CLOTRIMAZOLE 15 GM CR TOP SCH ×2 (08:05→21:22)
[2016-09-30] MEDS: GUAIFENESIN LA 600 MG TABSR PO SCH ×2 (08:05→21:21)
[2016-09-30] MEDS: HEPARIN 5,000 UNIT/0.5 ML SYG SC SCH ×2 (08:05→21:24)
[2016-09-30] MEDS: SENNA TAB PO SCH ×2 (08:05→21:21)
[2016-09-30] MEDS: ALBUTEROL/IPRATROPIUM (NEB) 3 ML AMP HHN SCH ×3 (08:49→19:41)
[2016-09-30] MEDS: DEXTROSE 5%-0.45% NACL 1,000 ML IV SCH ×2 (10:30→14:25)
--- NOTE | 2016-09-30 13:33 | PN ---
Date/Time of Note Date/Time of Note DATE: 09/30/16 TIME: 13:26 Assessment/Plan VTE Prophylaxis VTE Prophylaxis Intervention: SCD's Lines/Catheters IV Catheter Type (from [facility]): Peripheral IV Urinary Cath still in place: No Assessment/Plan Assessment/Plan 81 yo M with 1. Status post mechanical fall with chance L1 Fracture * TLSO 3 months whenever upright. 2. Closed head injury 2/2 fall, with a negative head CT. 3. COPD exacerbation: improved 4. Chronic Alcoholic Liver cirrhosis with L hepatic lobe nodule concerning for Carcinoma 5. SBO * SBFT neg / NGT clamped 6. R sided Pneumonia, resolved 7. Diabetes type 2 -A1c at 8. controlled with diet and NISS only 8. Chronic Ankylosing spondylitis of the lower thoracic and lumbar spine with moderate disk space narrowing at L4-5 and L5-S1. 9. Questionable GI bleed ? trauma from NGT. Hemoglobin hematocrit has been stable PLAN: * Continue Supportive care and in-house PT * Continue ETOH cessation * Monitor h/h and occult blood, but unlikely GIB per GI * Planned for trial of clear liquid diet today * Outpt /u with Dr Tao for possible Hepatic nodule resection PROPHYLAXIS: PPI / SCDs Subjective 24 Hr Interval Summary Free Text/Dictation Patient seen and examined. still with some abd pain per daughters No BM Exam/Review of Systems Vital Signs Vitals Vital Signs Date Time Temp Pulse Resp B/P Pulse Ox O2 Delivery O2 Flow Rate FiO2 09/30/16 08:51 61 20 98 Nasal Cannula 3.0 32 09/30/16 07:43 98.5 119/59 Intake and Output 09/29/16 09/29/16 09/30/16 15:00 23:00 07:00 Intake Total 100 ml 2030 ml 520 ml Output Total 200 ml 530 ml Balance 100 ml 1830 ml -10 ml Exam Constitutional: alert, frail, other (elderly) Psych: anxiety Head: normocephalic ENMT: other (NGT clamped with dark brown ) Respiratory: diminished breath sounds, No wheezing Cardiovascular: No murmurs/extra sounds Gastrointestinal: soft, tender (in lower mid abdomen) Extremities: No edema Neurological: lethargic Results Result Diagram: 09/29/16 0507 09/29/16 0507 Results 24 hrs Laboratory Tests Test 09/29/16 17:44 09/29/16 23:52 09/30/16 06:34 09/30/16 11:32 Bedside Glucose 106 128 133 200 Medications Medications Current Medications Lorazepam (Ativan) 0.5 mg Q6H PRN IV ANXIETY; Start 09/10/16 at 22:30 Ondansetron HCl (Zofran Inj) 4 mg Q6H PRN IV NAUSEA AND/OR VOMITING Last administered on 09/24/16 09:50; Admin Dose 4 MG; Start 09/10/16 at 22:30 Acetaminophen (Tylenol Tab) 650 mg Q6H PRN PO PAIN LEVEL 1-3 OR FEVER; Start at 22:30 Oxycodone/ Acetaminophen (Percocet (5/ 325)) 1 tab Q6H PRN PO PAIN LEVEL 4-6 Last administered on 09/24/16 06:32; Admin Dose 1 TAB; Start 09/10/16 at 22:30 Morphine Sulfate (morphine) 2 mg Q4H PRN IV PAIN LEVEL 7-10 Last administered on 09/29/16 17:54; Admin Dose 2 MG; Start 09/10/16 at 22:30 Heparin Sodium (Porcine) (Heparin (5000 Units/0.5 ml)) 5,000 unit Q12 SC Last administered on 09/30/16 08:05; Admin Dose 5,000 UNIT; Start 09/11/16 at 09:00 Miscellaneous Information 1 ea NOTE XX ; Start 09/11/16 at 21:30 Glucose (Glutose) 15 gm Q15M PRN PO DECREASED GLUCOSE; Start 09/11/16 at 21:30 Glucose (Glutose) 22.5 gm Q15M PRN PO DECREASED GLUCOSE; Start 09/11/16 at 21:30 Dextrose (D50w Syringe) 25 ml Q15M PRN IV DECREASED GLUCOSE; Start 09/11/16 at 21:30 Dextrose (D50w Syringe) 50 ml Q15M PRN IV DECREASED GLUCOSE; Start 09/11/16 at 21:30 Glucagon (Glucagen) 1 mg Q15M PRN IM DECREASED GLUCOSE; Start 09/11/16 at 21:30 Glucose (Glutose) 15 gm Q15M PRN BUCCAL DECREASED GLUCOSE; Start 09/11/16 at 21: 30 Phenol (Cepastat Lozenge) 1 lozenge Q1H PRN MT SORE THROAT Last administered on 09/13/16 02:45; Admin Dose 5 LOZENGE; Start 09/12/16 at 15:00 Senna (Senokot) 1 tab BID PO Last administered on 09/30/16 08:05; Admin Dose 1 TAB; Start 09/13/16 at 21:00 Magnesium Hydroxide (Milk Of Mag) 30 ml DAILY PRN PO CONSTIPATION Last administered on 09/22/16 17:26; Admin Dose 30 ML; Start 09/13/16 at 16:30 Guaifenesin (Mucinex) 600 mg BID PO Last administered on 09/30/16 08:05; Admin Dose 600 MG; Start 09/14/16 at 21:00 Betamethasone/ Clotrimazole (Lotrisone Cr) 1 applic BID TOP Last administered on 09/30/16 08:05; Admin Dose 1 APPLIC; Start 09/15/16 at 21:00 Methylprednisolone Sodium Succinate (Solu-Medrol) 20 mg BID IV Last administered on 09/30/16 08:04; Admin Dose 20 MG; Start 09/18/16 at 21:00 Furosemide (Lasix) 20 mg DAILY@06 IV Last administered on 09/30/16 06:26; Admin Dose 20 MG; Start 09/20/16 at 06:00 Amlodipine Besylate (Norvasc) 5 mg DAILY PO Last administered on 09/30/16 08: 05; Admin Dose 5 MG; Start 09/20/16 at 09:00 Clonidine (Catapres) 0.1 mg Q6H PRN PO ELEVATED SYSTOLIC BP Last administered on 09/21/16 06:43; Admin Dose 0.1 MG; Start 09/19/16 at 08:00 Polyethylene Glycol (Miralax) 17 gm DAILY PRN PO CONSTIPATION Last administered on 09/24/16 06:25; Admin Dose 17 GM; Start 09/23/16 at 11:30 Bisacodyl 10 mg 10 mg DAILY PRN PO CONSTIPATION Last administered on 09/24/16 06:21; Admin Dose 10 MG; Start 09/23/16 at 11:30 Dextrose/Sodium Chloride (D5-1/2ns) 1,000 ml @ 80 mls/hr [id number] IV Last administered on 09/29/16 05:48; Admin Dose 60 MLS/HR; Start 09/24/16 at 11:00 Insulin Aspart NOVOLOG *MILD* ALGORI... Q6 SC Last administered on 09/30/16 11 :45; Admin Dose 2 UNIT; Start 09/25/16 at 00:30 Piperacillin Sod/ Tazobactam Sod (Zosyn 3.375gm/ 100 ml (Pmx)) 100 ml @ 25 mls/ hr Q6H IVPB Last administered on 09/30/16 08:05; Admin Dose 25 MLS/HR; Start 09/26/16 at 15:00 Docusate Sodium (Colace Liquid Cup) 100 mg Q12 PO Last administered on 08:04; Admin Dose 100 MG; Start 09/27/16 at 09:00 Sodium Biphosphate/ Sodium Phosphate (Fleet Enema) 133 ml Q48H PRN [place] CONSTIPATION; Start 09/27/16 at 12:30 Pantoprazole (Protonix Iv) 40 mg BID@06,18 IV Last administered on 09/30/16 06 :25; Admin Dose 40 MG; Start 09/27/16 at 18:00 Procedures Procedures PROCEDURE: XR Abdomen. CLINICAL INDICATION: Ileus versus mechanical obstruction. TECHNIQUE: AP abdomen x-ray. COMPARISON: 09/24/2016 FINDINGS: Retained oral contrast within the colon. Nonspecific bowel gas pattern without evidence of obstruction or free air. NG tube tip overlying the fundus of the stomach with side port at the gastroesophageal junction. Ankylosing spondylitis. There are no abnormal calcifications overlying the urinary tracts. IMPRESSION: 1. No free air or obstruction. Retain oral contrast in the colon . 2. NG tube tip overlying the fundus of the stomach the side port at the gastroesophageal junction. 3. Ankylosing spondylitis. RPTAT:AAJJ Physician Mariel Date Time Electronically viewed and signed by Physician Mariel on 09/29/2016 21:20 AL/ CC: REDD BLACKWOOD MD, [place] M. Sep 30, 2016 13:33
[2016-09-30] MEDS: morphine 2 MG INJ IV PRN (14:25)
[2016-09-30] MEDS: METOCLOPRAMIDE 10 MG INJ IV SCH (17:04)
[2016-09-30 19:00] VITALS: BP 125/58; RESP 18
--- NOTE | 2016-09-30 19:20 | RADRPT ---
PROCEDURE: XR Abdomen. CLINICAL INDICATION: Abdomen pain. TECHNIQUE: AP supine abdomen x-ray. COMPARISON: 09/29/2016. FINDINGS: A nasogastric tube tip is in the stomach. Contrast is present in the colon and rectosigmoid, having advanced when compared with 09/29/2016. T here is gas in nondilated small bowel. There are no abnormal calcifications overlying the urinary tracts. There is fusion of the spine and sacroiliac joints consistent with ankylosing spondylitis. IMPRESSION: 1. Nasogastric tube tip in the stomach. 2. No evidence of obstruction. 3. Ankylosing spondylitis. RPTAT: QQ .Mingo Schneider MD, MD Date Time Electronically viewed and signed by .Mingo Schneider MD, MD on 09/30/2016 19:20 .R/
[2016-10-01] MEDS: METOCLOPRAMIDE 10 MG INJ IV SCH ×3 (00:22→12:04)
[2016-10-01] MEDS: INSULIN ASPART [NOVOLOG] 3 ML PEN SC SCH ×5 (00:30→21:06)
[2016-10-01] MEDS: morphine 2 MG INJ IV PRN (01:43)
[2016-10-01] MEDS: DEXTROSE 5%-0.45% NACL 1,000 ML IV SCH ×3 (01:43→16:04)
[2016-10-01] MEDS: PIPER-TAZO 3.375 GM IV (PMX) 100 ML IVPB SCH ×4 (03:07→20:56)
[2016-10-01] MEDS: PANTOPRAZOLE 40 MG INJ IV SCH ×2 (05:36→17:20)
[2016-10-01] MEDS: FUROSEMIDE 20 MG INJ IV SCH (05:40)
[2016-10-01 06:05] LABS: BASOPHILS % 0.1 % (0.0-2.0); HEMATOCRIT 49.2 % (42.0-52.0); LYMPHOCYTES # 0.8 10^3/ul (0.8-2.9); LYMPHOCYTES % 4.9 % (15.0-51.0); MEAN CORPUSCULAR HEMOGLOBIN 33.1 pg (29.0-33.0); MEAN CORPUSCULAR HGB CONC 34.6 g/dl (32.0-37.0); MEAN CORPUSCULAR VOLUME 95.8 fl (82.0-101.0); MEAN PLATELET VOLUME 8.9 fl (7.4-10.4); MONOCYTE # 1.3 10^3/ul (0.3-0.9); MONOCYTES % 8.3 % (0.0-11.0); NEUTROPHIL # 13.3 10^3/ul (1.6-7.5); NEUTROPHILS % 86.7 % (39.0-77.0); PLATELET COUNT 169 10^3/UL (140-440); RED BLOOD COUNT 5.14 10^6/ul (4.70-6.10); RED CELL DISTRIBUTION WIDTH 14.6 % (11.5-14.5); UNCORRECTED WBC 15.3 10^3/ul (4.8-10.8); WHITE BLOOD COUNT 15.3 10^3/ul (4.8-10.8)
[2016-10-01 06:14] LABS: ALBUMIN 3.3 g/dl (3.3-4.9); POTASSIUM 3.8 mmol/L (3.5-5.1)
[2016-10-01 06:16] LABS: CREATININE 0.62 mg/dl (0.61-1.24)
[2016-10-01 06:17] LABS: CALCIUM 8.9 mg/dl (8.4-10.2); PHOSPHORUS 3.1 mg/dl (2.5-4.9)
[2016-10-01 06:19] LABS: CONDITION 1; LH ANALYZER COMMENTS 1
[2016-10-01 08:31] VITALS: BP 163/75; RESP 20
[2016-10-01] MEDS: ALBUTEROL/IPRATROPIUM (NEB) 3 ML AMP HHN SCH ×3 (08:43→20:46)
[2016-10-01] MEDS: METHYLPREDNISOLONE 40 MG INJ IV SCH ×2 (09:09→20:59)
[2016-10-01] MEDS: DOCUSATE SODIUM 10 MG/ML (10ML CUP) PO SCH ×2 (09:09→21:53)
[2016-10-01] MEDS: GUAIFENESIN LA 600 MG TABSR PO SCH ×2 (09:09→23:15)
[2016-10-01] MEDS: SENNA TAB PO SCH ×2 (09:09→21:51)
[2016-10-01] MEDS: AMLODIPINE 5 MG TAB PO SCH (09:10)
[2016-10-01] MEDS: HEPARIN 5,000 UNIT/0.5 ML SYG SC SCH ×2 (09:46→20:55)
[2016-10-01] MEDS: BETAMETHASONE/CLOTRIMAZOLE 15 GM CR TOP SCH ×2 (12:00→21:53)
[2016-10-01] MEDS: POLYETHYLENE GLYCOL 17 GM PACKET PO SCH (13:06)
--- NOTE | 2016-10-01 13:41 | PN ---
Date/Time of Note Date/Time of Note DATE: 10/01/16 TIME: 13:38 Assessment/Plan VTE Prophylaxis VTE Prophylaxis Intervention: SCD's Lines/Catheters IV Catheter Type (from Nrs): Peripheral IV Urinary Cath still in place: No Assessment/Plan Assessment/Plan 81 yo M with 1. Status post mechanical fall with chance L1 Fracture * TLSO 3 months whenever upright. 2. Closed head injury 2/2 fall, with a negative head CT. 3. COPD exacerbation: improved 4. Chronic Alcoholic Liver cirrhosis with L hepatic lobe nodule concerning for Carcinoma 5. SBO * SBFT neg / NGT clamped 6. R sided Pneumonia, resolved 7. Diabetes type 2 -A1c at 8. controlled with diet and NISS only 8. Chronic Ankylosing spondylitis of the lower thoracic and lumbar spine with moderate disk space narrowing at L4-5 and L5-S1. 9. Questionable GI bleed ? trauma from NGT. Hemoglobin hematocrit has been stable PLAN: * Continue Supportive care and in-house PT / encourage movt * Monitor h/h and occult blood, * Continue CLD - do not advance, add motility agents to regimen, mag citrate, miralax * Outpt /u with Dr Tao for possible Hepatic nodule resection PROPHYLAXIS: PPI / SCDs Prognosis remains guarded Subjective 24 Hr Interval Summary Free Text/Dictation Patient seen and examined. no real BM still, had minimal outpt after manual disimpaction Had continued pain with dinner and felt full Exam/Review of Systems Vital Signs Vitals Vital Signs Date Time Temp Pulse Resp B/P Pulse Ox O2 Delivery O2 Flow Rate FiO2 10/01/16 12:50 Nasal Cannula 3.0 10/01/16 08:40 76 18 96 10/01/16 08:31 98.2 163/75 09/30/16 15:02 32 Intake and Output 09/30/16 09/30/16 10/01/16 15:00 23:00 07:00 Intake Total 520 ml 340 ml 1260 ml Output Total 350 ml Balance 520 ml 340 ml 910 ml Exam Constitutional: alert, frail, other (elderly) Psych: anxiety Head: normocephalic ENMT: other (NGT clamped with dark brown ) Respiratory: diminished breath sounds, No wheezing Cardiovascular: No murmurs/extra sounds Gastrointestinal: soft, tender (in lower mid abdomen) Extremities: No edema Neurological: lethargic Results Result Diagram: 10/01/16 0535 10/01/16 0533 Results 24 hrs Laboratory Tests Test 09/30/16 17:01 10/01/16 00:22 10/01/16 05:33 10/01/16 05:35 Bedside Glucose 147 189 Albumin 3.3 Anion Gap 14 Blood Urea Nitrogen 27 H Calcium Level 8.9 Carbon Dioxide Level 27 Chloride Level 100 Creatinine 0.62 Glucose Level 218 Phosphorus Level 3.1 Potassium Level 3.8 Sodium Level 137 Basophils # 0.0 Basophils % 0.1 Blood Morphology Comment Eosinophils # 0.0 Eosinophils % 0.0 Hematocrit 49.2 Hemoglobin 17.0 Lymphocytes # 0.8 Lymphocytes % 4.9 L Mean Corpuscular Hemoglobin 33.1 H Mean Corpuscular Hemoglobin Concent 34.6 Mean Corpuscular Volume 95.8 Mean Platelet Volume 8.9 Monocytes # 1.3 H Monocytes % 8.3 Neutrophils # 13.3 H Neutrophils % 86.7 H Nucleated Red Blood Cells # 0.0 Nucleated Red Blood Cells % 0.0 Platelet Count 169 Red Blood Count 5.14 Red Cell Distribution Width 14.6 H White Blood Count 15.3 #H Test 10/01/16 05:37 10/01/16 11:56 Bedside Glucose 188 213 Medications Medications Current Medications Lorazepam (Ativan) 0.5 mg Q6H PRN IV ANXIETY; Start 09/10/16 at 22:30 Ondansetron HCl (Zofran Inj) 4 mg Q6H PRN IV NAUSEA AND/OR VOMITING Last administered on 09/24/16 09:50; Admin Dose 4 MG; Start 09/10/16 at 22:30 Acetaminophen (Tylenol Tab) 650 mg Q6H PRN PO PAIN LEVEL 1-3 OR FEVER; Start at 22:30 Oxycodone/ Acetaminophen (Percocet (5/ 325)) 1 tab Q6H PRN PO PAIN LEVEL 4-6 Last administered on 09/24/16 06:32; Admin Dose 1 TAB; Start 09/10/16 at 22:30 Morphine Sulfate (morphine) 2 mg Q4H PRN IV PAIN LEVEL 7-10 Last administered on 10/01/16 01:43; Admin Dose 2 MG; Start 09/10/16 at 22:30 Heparin Sodium (Porcine) (Heparin (5000 Units/0.5 ml)) 5,000 unit Q12 SC Last administered on 10/01/16 09:46; Admin Dose 5,000 UNIT; Start 09/11/16 at 09:00 Miscellaneous Information 1 ea NOTE XX ; Start 09/11/16 at 21:30 Glucose (Glutose) 15 gm Q15M PRN PO DECREASED GLUCOSE; Start 09/11/16 at 21:30 Glucose (Glutose) 22.5 gm Q15M PRN PO DECREASED GLUCOSE; Start 09/11/16 at 21:30 Dextrose (D50w Syringe) 25 ml Q15M PRN IV DECREASED GLUCOSE; Start 09/11/16 at 21:30 Dextrose (D50w Syringe) 50 ml Q15M PRN IV DECREASED GLUCOSE; Start 09/11/16 at 21:30 Glucagon (Glucagen) 1 mg Q15M PRN IM DECREASED GLUCOSE; Start 09/11/16 at 21:30 Glucose (Glutose) 15 gm Q15M PRN BUCCAL DECREASED GLUCOSE; Start 09/11/16 at 21: 30 Phenol (Cepastat Lozenge) 1 lozenge Q1H PRN [place] SORE THROAT Last administered on 09/13/16 02:45; Admin Dose 5 LOZENGE; Start 09/12/16 at 15:00 Senna (Senokot) 1 tab BID PO Last administered on 10/01/16 09:09; Admin Dose 1 TAB; Start 09/13/16 at 21:00 Magnesium Hydroxide (Milk Of Mag) 30 ml DAILY PRN PO CONSTIPATION Last administered on 09/22/16 17:26; Admin Dose 30 ML; Start 09/13/16 at 16:30 Guaifenesin (Mucinex) 600 mg BID PO Last administered on 10/01/16 09:09; Admin Dose 600 MG; Start 09/14/16 at 21:00 Betamethasone/ Clotrimazole (Lotrisone Cr) 1 applic BID TOP Last administered on 10/01/16 12:00; Admin Dose 1 APPLIC; Start 09/15/16 at 21:00 Methylprednisolone Sodium Succinate (Solu-Medrol) 20 mg BID IV Last administered on 10/01/16 09:09; Admin Dose 20 MG; Start 09/18/16 at 21:00 Furosemide (Lasix) 20 mg DAILY@06 IV Last administered on 10/01/16 05:40; Admin Dose 20 MG; Start 09/20/16 at 06:00 Amlodipine Besylate (Norvasc) 5 mg DAILY PO Last administered on 10/01/16 09: 10; Admin Dose 5 MG; Start 09/20/16 at 09:00 Clonidine (Catapres) 0.1 mg Q6H PRN PO ELEVATED SYSTOLIC BP Last administered on 09/21/16 06:43; Admin Dose 0.1 MG; Start 09/19/16 at 08:00 Bisacodyl 10 mg 10 mg DAILY PRN PO CONSTIPATION Last administered on 09/24/16 06:21; Admin Dose 10 MG; Start 09/23/16 at 11:30 Dextrose/Sodium Chloride (D5-1/2ns) 1,000 ml @ 80 mls/hr [id number] IV Last administered on 10/01/16 01:43; Admin Dose 80 MLS/HR; Start 09/24/16 at 11:00 Insulin Aspart NOVOLOG *MILD* ALGORI... Q6 SC Last administered on 10/01/16 12 :02; Admin Dose 2 UNIT; Start 09/25/16 at 00:30 Piperacillin Sod/ Tazobactam Sod (Zosyn 3.375gm/ 100 ml (Pmx)) 100 ml @ 25 mls/ hr Q6H IVPB Last administered on 10/01/16 09:09; Admin Dose 25 MLS/HR; Start 09/26/16 at 15:00 Docusate Sodium (Colace Liquid Cup) 100 mg Q12 PO Last administered on 09:09; Admin Dose 100 MG; Start 09/27/16 at 09:00 Sodium Biphosphate/ Sodium Phosphate (Fleet Enema) 133 ml Q48H PRN [place] CONSTIPATION; Start 09/27/16 at 12:30 Pantoprazole (Protonix Iv) 40 mg BID@06,18 IV Last administered on 10/01/16 05 :36; Admin Dose 40 MG; Start 09/27/16 at 18:00 Metoclopramide HCl (Reglan) 5 mg Q6 IV Last administered on 10/01/16 12:04; Admin Dose 5 MG; Start 09/30/16 at 18:00; Stop 10/01/16 at 17:59 Mineral Oil (Fleet Mineral Oil Enema) 133 ml ONCE ONCE [place] ; Start 10/01/16 at 14:00; Stop 10/01/16 at 14:01 Polyethylene Glycol (Miralax) 17 gm DAILY PO Last administered on 10/01/16t 13: 06; Admin Dose 17 GM; Start 10/01/16 at 13:00 Magnesium Citrate (Citroma) 150 ml ONCE ONCE PO ; Start 10/01/16 at 14:00; Stop 10/01/16 at 14:01 NADIA BURDEN Oct 01, 2016 13:41
[2016-10-01] MEDS ORDERED: MINERAL OIL 133 ML ENEMA PR ONE (14:00)
[2016-10-01] MEDS ORDERED: MAGNESIUM CITRATE 300 ML BTL PO ONE (14:00)
--- NOTE | 2016-10-01 16:11 | CONS ---
Date/Time of Note Date/Time of Note DATE: 10/01/16 TIME: 16:07 Assessment/Plan Assessment/Plan Additional Assessment/Plan 1. Possible GIB per report but h/h stable and normal * Positive stool OB, hemoglobin stable, repeat stool OB in process 2. Liver cirrhosis likely secondary to patient's h/o heavy EtOH use. * Hepatitis serology negative 3. SBO: resolved on SBFT on 09-29-16, tolerating clear diet 4. COPD, neb, status post antibiotics, steroid, improving, tapering steroid 5. L hepatic lobe nodule concerning for Carcinoma Recommendations: 1. f/u with Dr. Tao regarding resection of liver mass 2. continue ETOH cessation 3. monitor h/h Further recommendations depend on clinical course Patient seen in collaboration with Dr. Hoffmann Consultation Date/Type/Reason Admit Date/Time Sep 10, 2016 at 19:04 Initial Consult Date Type of Consultation: GI 24 HR Interval Summary Free Text/Dictation Tolerating clear diet We will DC NG tube Repeat stool OB to confirm necessity of EGD Exam/Review of Systems Vital Signs Vitals Vital Signs Date Time Temp Pulse Resp B/P Pulse Ox O2 Delivery O2 Flow Rate FiO2 10/01/16 14:31 70 18 96 Nasal Cannula 3.0 10/01/16 08:31 98.2 163/75 09/30/16 15:02 32 Intake and Output 09/30/16 09/30/16 10/01/16 14:59 22:59 06:59 Intake Total 520 ml 340 ml 1260 ml Output Total 350 ml Balance 520 ml 340 ml 910 ml Exam Psych: nl mood/affect, no complaints Head: atraumatic, normocephalic Eyes: EOMI, nl conjunctiva, nl lids, nl sclera ENMT: mucosa pink and moist, nl external ears & nose, nl lips & teeth, nl nasal mucosa & septum Neck: non-tender, supple Respiratory: clear to auscultation, normal air movement Cardiovascular: nl pulses, regular rate and rhythm Gastrointestinal: bowel sounds, soft Results Result Diagram: 10/01/16 0535 10/01/16 0533 Results 24 hrs Laboratory Tests Test 09/30/16 17:01 10/01/16 00:22 10/01/16 05:33 10/01/16 05:35 Bedside Glucose 147 189 Albumin 3.3 Anion Gap 14 Blood Urea Nitrogen 27 H Calcium Level 8.9 Carbon Dioxide Level 27 Chloride Level 100 Creatinine 0.62 Glucose Level 218 Phosphorus Level 3.1 Potassium Level 3.8 Sodium Level 137 Basophils # 0.0 Basophils % 0.1 Blood Morphology Comment Eosinophils # 0.0 Eosinophils % 0.0 Hematocrit 49.2 Hemoglobin 17.0 Lymphocytes # 0.8 Lymphocytes % 4.9 L Mean Corpuscular Hemoglobin 33.1 H Mean Corpuscular Hemoglobin Concent 34.6 Mean Corpuscular Volume 95.8 Mean Platelet Volume 8.9 Monocytes # 1.3 H Monocytes % 8.3 Neutrophils # 13.3 H Neutrophils % 86.7 H Nucleated Red Blood Cells # 0.0 Nucleated Red Blood Cells % 0.0 Platelet Count 169 Red Blood Count 5.14 Red Cell Distribution Width 14.6 H White Blood Count 15.3 #H Test 10/01/16 05:37 10/01/16 11:56 Bedside Glucose 188 213 Medications Medications Current Medications Lorazepam (Ativan) 0.5 mg Q6H PRN IV ANXIETY; Start 09/10/16 at 22:30 Ondansetron HCl (Zofran Inj) 4 mg Q6H PRN IV NAUSEA AND/OR VOMITING Last administered on 09/24/16 09:50; Admin Dose 4 MG; Start 09/10/16 at 22:30 Acetaminophen (Tylenol Tab) 650 mg Q6H PRN PO PAIN LEVEL 1-3 OR FEVER; Start at 22:30 Oxycodone/ Acetaminophen (Percocet (5/ 325)) 1 tab Q6H PRN PO PAIN LEVEL 4-6 Last administered on 09/24/16 06:32; Admin Dose 1 TAB; Start 09/10/16 at 22:30 Morphine Sulfate (morphine) 2 mg Q4H PRN IV PAIN LEVEL 7-10 Last administered on 10/01/16 01:43; Admin Dose 2 MG; Start 09/10/16 at 22:30 Heparin Sodium (Porcine) (Heparin (5000 Units/0.5 ml)) 5,000 unit Q12 SC Last administered on 10/01/16 09:46; Admin Dose 5,000 UNIT; Start 09/11/16 at 09:00 Miscellaneous Information 1 ea NOTE XX ; Start 09/11/16 at 21:30 Glucose (Glutose) 15 gm Q15M PRN PO DECREASED GLUCOSE; Start 09/11/16 at 21:30 Glucose (Glutose) 22.5 gm Q15M PRN PO DECREASED GLUCOSE; Start 09/11/16 at 21:30 Dextrose (D50w Syringe) 25 ml Q15M PRN IV DECREASED GLUCOSE; Start 09/11/16 at 21:30 Dextrose (D50w Syringe) 50 ml Q15M PRN IV DECREASED GLUCOSE; Start 09/11/16 at 21:30 Glucagon (Glucagen) 1 mg Q15M PRN IM DECREASED GLUCOSE; Start 09/11/16 at 21:30 Glucose (Glutose) 15 gm Q15M PRN BUCCAL DECREASED GLUCOSE; Start 09/11/16 at 21: 30 Phenol (Cepastat Lozenge) 1 lozenge Q1H PRN [place] SORE THROAT Last administered on 09/13/16 02:45; Admin Dose 5 LOZENGE; Start 09/12/16 at 15:00 Senna (Senokot) 1 tab BID PO Last administered on 10/01/16 09:09; Admin Dose 1 TAB; Start 09/13/16 at 21:00 Magnesium Hydroxide (Milk Of Mag) 30 ml DAILY PRN PO CONSTIPATION Last administered on 09/22/16 17:26; Admin Dose 30 ML; Start 09/13/16 at 16:30 Guaifenesin (Mucinex) 600 mg BID PO Last administered on 10/01/16 09:09; Admin Dose 600 MG; Start 09/14/16 at 21:00 Betamethasone/ Clotrimazole (Lotrisone Cr) 1 applic BID TOP Last administered on 10/01/16 12:00; Admin Dose 1 APPLIC; Start 09/15/16 at 21:00 Methylprednisolone Sodium Succinate (Solu-Medrol) 20 mg BID IV Last administered on 10/01/16 09:09; Admin Dose 20 MG; Start 09/18/16 at 21:00 Furosemide (Lasix) 20 mg DAILY@06 IV Last administered on 10/01/16 05:40; Admin Dose 20 MG; Start 09/20/16 at 06:00 Amlodipine Besylate (Norvasc) 5 mg DAILY PO Last administered on 10/01/16 09: 10; Admin Dose 5 MG; Start 09/20/16 at 09:00 Clonidine (Catapres) 0.1 mg Q6H PRN PO ELEVATED SYSTOLIC BP Last administered on 09/21/16 06:43; Admin Dose 0.1 MG; Start 09/19/16 at 08:00 Bisacodyl 10 mg 10 mg DAILY PRN PO CONSTIPATION Last administered on 09/24/16 06:21; Admin Dose 10 MG; Start 09/23/16 at 11:30 Dextrose/Sodium Chloride (D5-1/2ns) 1,000 ml @ 80 mls/hr [id number] IV Last administered on 10/01/16 01:43; Admin Dose 80 MLS/HR; Start 09/24/16 at 11:00 Insulin Aspart NOVOLOG *MILD* ALGORI... Q6 SC Last administered on 10/01/16 12 :02; Admin Dose 2 UNIT; Start 09/25/16 at 00:30 Piperacillin Sod/ Tazobactam Sod (Zosyn 3.375gm/ 100 ml (Pmx)) 100 ml @ 25 mls/ hr Q6H IVPB Last administered on 10/01/16 09:09; Admin Dose 25 MLS/HR; Start 09/26/16 at 15:00 Docusate Sodium (Colace Liquid Cup) 100 mg Q12 PO Last administered on 09:09; Admin Dose 100 MG; Start 09/27/16 at 09:00 Sodium Biphosphate/ Sodium Phosphate (Fleet Enema) 133 ml Q48H PRN [place] CONSTIPATION; Start 09/27/16 at 12:30 Pantoprazole (Protonix Iv) 40 mg BID@06,18 IV Last administered on 10/01/16 05 :36; Admin Dose 40 MG; Start 09/27/16 at 18:00 Metoclopramide HCl (Reglan) 5 mg Q6 IV Last administered on 10/01/16 12:04; Admin Dose 5 MG; Start 09/30/16 at 18:00; Stop 10/01/16 at 17:59 Polyethylene Glycol (Miralax) 17 gm DAILY PO Last administered on 10/01/16 13: 06; Admin Dose 17 GM; Start 10/01/16 at 13:00 PILY GA Oct 01, 2016 16:11
[2016-10-01 21:03] VITALS: BP 114/57; RESP 18
[2016-10-02] MEDS: PIPER-TAZO 3.375 GM IV (PMX) 100 ML IVPB SCH ×3 (03:21→15:19)
[2016-10-02] MEDS: PANTOPRAZOLE 40 MG INJ IV SCH ×2 (05:41→17:01)
[2016-10-02] MEDS: DEXTROSE 5%-0.45% NACL 1,000 ML IV SCH ×2 (05:42)
[2016-10-02] MEDS: FUROSEMIDE 20 MG INJ IV SCH (05:42)
[2016-10-02 06:50] LABS: ALBUMIN 2.7 g/dl (3.3-4.9); POTASSIUM 3.5 mmol/L (3.5-5.1)
[2016-10-02 06:53] LABS: CREATININE 0.66 mg/dl (0.61-1.24); PHOSPHORUS 2.8 mg/dl (2.5-4.9)
[2016-10-02 07:08] LABS: CALCIUM 8.5 mg/dl (8.4-10.2)
[2016-10-02] MEDS: ALBUTEROL/IPRATROPIUM (NEB) 3 ML AMP HHN SCH ×3 (07:37→20:49)
[2016-10-02 07:49] VITALS: BP 97/52; RESP 16
[2016-10-02] MEDS: INSULIN ASPART [NOVOLOG] 3 ML PEN SC SCH ×3 (07:52→17:04)
[2016-10-02] MEDS: METHYLPREDNISOLONE 40 MG INJ IV SCH (08:28)
[2016-10-02] MEDS: GUAIFENESIN LA 600 MG TABSR PO SCH (08:28)
[2016-10-02] MEDS: SENNA TAB PO SCH (08:29)
[2016-10-02] MEDS: AMLODIPINE 5 MG TAB PO SCH (08:29)
[2016-10-02] MEDS: POLYETHYLENE GLYCOL 17 GM PACKET PO SCH (08:29)
[2016-10-02] MEDS: DOCUSATE SODIUM 10 MG/ML (10ML CUP) PO SCH (08:29)
[2016-10-02] MEDS: BETAMETHASONE/CLOTRIMAZOLE 15 GM CR TOP SCH (08:30)
[2016-10-02] MEDS: HEPARIN 5,000 UNIT/0.5 ML SYG SC SCH (08:31)
[2016-10-02 08:50] LABS: EOSINOPHILS % 0.1 % (0.0-7.0); HEMATOCRIT 41.6 % (42.0-52.0); HEMOGLOBIN 14.2 g/dl (14.0-18.0); LYMPHOCYTES # 0.9 10^3/ul (0.8-2.9); LYMPHOCYTES % 10.2 % (15.0-51.0); MEAN CORPUSCULAR HGB CONC 34.1 g/dl (32.0-37.0); MEAN CORPUSCULAR VOLUME 96.8 fl (82.0-101.0); MEAN PLATELET VOLUME 9.2 fl (7.4-10.4); MONOCYTE # 0.7 10^3/ul (0.3-0.9); MONOCYTES % 7.6 % (0.0-11.0); NEUTROPHIL # 7.5 10^3/ul (1.6-7.5); NEUTROPHILS % 82.1 % (39.0-77.0); PLATELET COUNT 129 10^3/UL (140-440); RED CELL DISTRIBUTION WIDTH 14.6 % (11.5-14.5); UNCORRECTED WBC 9.1 10^3/ul (4.8-10.8); WHITE BLOOD COUNT 9.1 10^3/ul (4.8-10.8)
[2016-10-02 08:58] LABS: CONDITION 1; LH ANALYZER COMMENTS 1
--- NOTE | 2016-10-02 10:48 | CONS ---
Date/Time of Note Date/Time of Note DATE: 10/02/16 TIME: 10:47 Assessment/Plan Assessment/Plan Additional Assessment/Plan 1. Possible GIB per report but h/h stable and normal * Positive stool OB, hemoglobin stable * Plan for outpatient EGD with Dr. Hoffmann arthritis 2. Liver cirrhosis likely secondary to patient's h/o heavy EtOH use. * Hepatitis serology negative 3. SBO: resolved on SBFT on 09-29-16, tolerating clear diet 4. COPD, neb, status post antibiotics, steroid, improving, tapering steroid 5. L hepatic lobe nodule concerning for Carcinoma Recommendations: 1. continue ETOH cessation 2. monitor h/h Further recommendations depend on clinical course Patient seen in collaboration with Dr. Hoffmann Consultation Date/Type/Reason Admit Date/Time Sep 10, 2016 at 19:04 Type of Consultation: GI 24 HR Interval Summary Free Text/Dictation Repeat stool OB pos Plan for EGD Friday with Dr. Hoffmann as OP Exam/Review of Systems Vital Signs Vitals Vital Signs Date Time Temp Pulse Resp B/P Pulse Ox O2 Delivery O2 Flow Rate FiO2 10/02/16 10:10 Nasal Cannula 2.0 10/02/16 07:49 97.8 67 16 97/52 96 09/30/16 15:02 32 Intake and Output 10/01/16 10/01/16 10/02/16 15:00 23:00 07:00 Intake Total 200 ml 1505 ml 1100 ml Output Total 550 ml 600 ml Balance 200 ml 955 ml 500 ml Exam Psych: nl mood/affect, no complaints Head: atraumatic, normocephalic Eyes: EOMI, nl conjunctiva, nl lids, nl sclera ENMT: mucosa pink and moist, nl external ears & nose, nl lips & teeth, nl nasal mucosa & septum Neck: non-tender, supple Respiratory: clear to auscultation, normal air movement Cardiovascular: nl pulses, regular rate and rhythm Gastrointestinal: bowel sounds, soft Results Result Diagram: 10/02/16 0538 10/02/16 0538 Results 24 hrs Laboratory Tests Test 10/01/16 11:56 10/01/16 17:09 10/01/16 17:20 10/01/16 21:03 Bedside Glucose 213 194 163 Stool Occult Blood POSITIVE Test 10/02/16 05:38 10/02/16 07:48 Albumin 2.7 L Anion Gap 12 Basophils # 0.0 Basophils % 0.0 Blood Morphology Comment Blood Urea Nitrogen 23 H Calcium Level 8.5 Carbon Dioxide Level 28 Chloride Level 101 Creatinine 0.66 Eosinophils # 0.0 Eosinophils % 0.1 Glucose Level 155 Hematocrit 41.6 L Hemoglobin 14.2 Lymphocytes # 0.9 Lymphocytes % 10.2 L Mean Corpuscular Hemoglobin 33.0 Mean Corpuscular Hemoglobin Concent 34.1 Mean Corpuscular Volume 96.8 Mean Platelet Volume 9.2 Monocytes # 0.7 Monocytes % 7.6 Neutrophils # 7.5 Neutrophils % 82.1 H Nucleated Red Blood Cells # 0.0 Nucleated Red Blood Cells % 0.0 Phosphorus Level 2.8 Platelet Count 129 #L Potassium Level 3.5 Red Blood Count 4.30 L Red Cell Distribution Width 14.6 H Sodium Level 137 White Blood Count 9.1 # Bedside Glucose 144 Medications Medications Current Medications Lorazepam (Ativan) 0.5 mg Q6H PRN IV ANXIETY; Start 09/10/16 at 22:30 Ondansetron HCl (Zofran Inj) 4 mg Q6H PRN IV NAUSEA AND/OR VOMITING Last administered on 09/24/16 09:50; Admin Dose 4 MG; Start 09/10/16 at 22:30 Acetaminophen (Tylenol Tab) 650 mg Q6H PRN PO PAIN LEVEL 1-3 OR FEVER; Start at 22:30 Oxycodone/ Acetaminophen (Percocet (5/ 325)) 1 tab Q6H PRN PO PAIN LEVEL 4-6 Last administered on 09/24/16 06:32; Admin Dose 1 TAB; Start 09/10/16 at 22:30 Morphine Sulfate (morphine) 2 mg Q4H PRN IV PAIN LEVEL 7-10 Last administered on 10/01/16 01:43; Admin Dose 2 MG; Start 09/10/16 at 22:30 Heparin Sodium (Porcine) (Heparin (5000 Units/0.5 ml)) 5,000 unit Q12 SC Last administered on 10/02/16 08:31; Admin Dose 5,000 UNIT; Start 09/11/16 at 09:00 Miscellaneous Information 1 ea NOTE XX ; Start 09/11/16 at 21:30 Glucose (Glutose) 15 gm Q15M PRN PO DECREASED GLUCOSE; Start 09/11/16 at 21:30 Glucose (Glutose) 22.5 gm Q15M PRN PO DECREASED GLUCOSE; Start 09/11/16 at 21:30 Dextrose (D50w Syringe) 25 ml Q15M PRN IV DECREASED GLUCOSE; Start 09/11/16 at 21:30 Dextrose (D50w Syringe) 50 ml Q15M PRN IV DECREASED GLUCOSE; Start 09/11/16 at 21:30 Glucagon (Glucagen) 1 mg Q15M PRN IM DECREASED GLUCOSE; Start 09/11/16 at 21:30 Glucose (Glutose) 15 gm Q15M PRN BUCCAL DECREASED GLUCOSE; Start 09/11/16 at 21: 30 Phenol (Cepastat Lozenge) 1 lozenge Q1H PRN MT SORE THROAT Last administered on 09/13/16 02:45; Admin Dose 5 LOZENGE; Start 09/12/16 at 15:00 Senna (Senokot) 1 tab BID PO Last administered on 10/01/16 21:51; Admin Dose 1 TAB; Start 09/13/16 at 21:00 Magnesium Hydroxide (Milk Of Mag) 30 ml DAILY PRN PO CONSTIPATION Last administered on 09/22/16 17:26; Admin Dose 30 ML; Start 09/13/16 at 16:30 Guaifenesin (Mucinex) 600 mg BID PO Last administered on 10/02/16 08:28; Admin Dose 600 MG; Start 09/14/16 at 21:00 Betamethasone/ Clotrimazole (Lotrisone Cr) 1 applic BID TOP Last administered on 10/02/16 08:30; Admin Dose 1 APPLIC; Start 09/15/16 at 21:00 Methylprednisolone Sodium Succinate (Solu-Medrol) 20 mg BID IV Last administered on 10/02/16 08:28; Admin Dose 20 MG; Start 09/18/16 at 21:00 Furosemide (Lasix) 20 mg DAILY@06 IV Last administered on 10/02/16 05:42; Admin Dose 20 MG; Start 09/20/16 at 06:00 Amlodipine Besylate (Norvasc) 5 mg DAILY PO Last administered on 10/01/16 09: 10; Admin Dose 5 MG; Start 09/20/16 at 09:00 Clonidine (Catapres) 0.1 mg Q6H PRN PO ELEVATED SYSTOLIC BP Last administered on 09/21/16 06:43; Admin Dose 0.1 MG; Start 09/19/16 at 08:00 Bisacodyl 10 mg 10 mg DAILY PRN PO CONSTIPATION Last administered on 09/24/16 06:21; Admin Dose 10 MG; Start 09/23/16 at 11:30 Piperacillin Sod/ Tazobactam Sod (Zosyn 3.375gm/ 100 ml (Pmx)) 100 ml @ 25 mls/ hr Q6H IVPB Last administered on 10/02/16 08:28; Admin Dose 25 MLS/HR; Start 09/26/16 at 15:00 Docusate Sodium (Colace Liquid Cup) 100 mg Q12 PO Last administered on 21:53; Admin Dose 100 MG; Start 09/27/16 at 09:00 Sodium Biphosphate/ Sodium Phosphate (Fleet Enema) 133 ml Q48H PRN [place] CONSTIPATION; Start 09/27/16 at 12:30 Pantoprazole (Protonix Iv) 40 mg BID@06,18 IV Last administered on 10/02/16 05 :41; Admin Dose 40 MG; Start 09/27/16 at 18:00 Polyethylene Glycol (Miralax) 17 gm DAILY PO Last administered on 10/01/16 13: 06; Admin Dose 17 GM; Start 10/01/16 at 13:00 PILY GA Oct 02, 2016 10:48
[2016-10-02] MEDS ORDERED: FURO-110 PO (15:35)
[2016-10-02] MEDS ORDERED: CIPR500T4 PO (15:35)
[2016-10-02] MEDS ORDERED: PRED10TA PO (15:35)
[2016-10-02] MEDS ORDERED: PANT40TA3 PO (15:35)
[2016-10-02] MEDS ORDERED: POLY17PO6 PO (15:35)
[2016-10-02] MEDS ORDERED: METR500T14 PO (15:35)
[2016-10-02] MEDS ORDERED: AMLO-145 PO (15:35)
[2016-10-02] MEDS ORDERED: UDCOL PO (15:35)
[2016-10-02] MEDS ORDERED: LACT1CAP57 PO (15:35)
[2016-10-02] MEDS ORDERED: SENN-53 PO (15:35)
[2016-10-02] MEDS ORDERED: ACET325T33 PO (15:35)
[2016-10-02] MEDS ORDERED: IPRA3AMP HHN ×2 (15:35)
[2016-10-02] MEDS ORDERED: NOVO3I SC (15:35)
[2016-10-02] MEDS ORDERED: POTA8TAB2 PO (15:35)
--- NOTE | 2016-10-02 15:39 | PDOCDIS ---
Discharge Instructions DIAGNOSIS Discharge Diagnosis: L1 fracture / SBO / Hepatic mass CONDITION Patient Condition: Stable HOME CARE INSTRUCTIONS: Special Diet: mech soft ACTIVITY: Activity Restrictions: Slowly Increase Activity Special Exercises (aggresive rehab) OTHER ORDERS: Other Orders: * Patient has to use TLSO brace at all times when standing * Patient needs to f/u with the following physicians 1. Name, Degree: Kassandra Hoffmann MD Specialty: Gastroenterology Comments: Office Address: [address] [place] [address] Office Office Appraisal Manager: Carissa Crowder 2. Name, Degree: Surinder Tao MD Specialty: General Surgery Comments: Office Address: [address] [place] [address] Office Office Appraisal Manager: Surinder Tao MD Status: Active Department: Surgery 3. Name, Degree: Judson Freed MD Specialty: Neurosurgery Comments: Office Address: [address] [place] [address] Office Office Appraisal Manager: Preeti Nicole Status: Courtesy Department: Surgery NADIA BURDEN Oct 02, 2016 15:39
[2016-10-02 16:08] LABS: ALBUMIN 2.8 g/dl (3.3-4.9)
[2016-10-02 16:09] LABS: POTASSIUM 3.5 mmol/L (3.5-5.1)
[2016-10-02 16:11] LABS: ALBUMIN/GLOBULIN RATIO 1.16; BILIRUBIN,INDIRECT 0.8 mg/dl (0-1.1); BILIRUBIN,TOTAL 0.8 mg/dl (0.2-1.3); CREATININE 0.74 mg/dl (0.61-1.24); TOTAL PROTEIN 5.2 g/dl (6.1-8.1)
[2016-10-02 16:12] LABS: CALCIUM 8.6 mg/dl (8.4-10.2)
[2016-10-02 19:53] VITALS: BP 103/52; RESP 18
--- NOTE | 2016-10-04 02:44 | DS ---
DATE OF ADMISSION: 09/10/2016 DATE OF DISCHARGE: 10/02/2016 PRESENTING COMPLAINT: Mechanical fall, back pain and difficulty walking. DISCHARGE DIAGNOSES: An 81-year-old male with a history of diabetes and psoriasis who fell down 6 s teps 3 days prior to presentation, landed on his buttock and had been experiencing low back pain and difficulty ambulating since then. ADMISSION DIAGNOSES: 1. Fracture of lumbar vertebra. 2. Closed head injury with negative head CT findings. 3. Colitis, diverticulosis and duodenitis. 4. Left lower lobe liver nodule. 5. Diffuse fatty liver. 6. History of alcohol abuse. 7. Diabetes. 8. Leukocytosis and erythrocytosis. CONSULTANTS ON THE CASE: 1. Dr. Judson Freed. 2. Dr. Surinder Tao. 3. Dr. Kassandra Hoffmann. INTERVENTIONS: The patient underwent multiple imaging studies. They included: 1. Multiple chest x-rays. 2. CT brain that was unremarkable for any acute findings. 3. An abdomen MRI that showed liver cirrhosis and a focal arterial enhancing mass and a left hepati c lobe lesion in the setting of chronic liver disease, worrisome for a basilar carcinoma. The patie nt also underwent abdominal ultrasound that basically showed the same as the MRI but also with galls tones in the gallbladder. 4. The patient underwent multiple x-rays of his lumbar spine as well that showed ankylosing spondyl itis with moderate disk space narrowing at L4-L5 and L5-S1 and a nondisplaced stable appearing L1 tr ansverse fracture. 5. The patient underwent a CT of the abdomen and pelvis as well as multiple abdominal x-rays that s howed an aneurysm in the mid abdominal aorta measuring 4.1 cm below the level of the renal arteries and abdominal x-rays were consistent with small bowel ileus. The patient then underwent a small bow el follow-through 09/29/2016 that did not show any obstruction. 6. Also, patient had a 2D echo 09/10/2016 that showed the lower limits of normal systolic function, ejection fraction visually estimated at 50%, normal appearance and function of the tricuspid valve with trace physiologic regurgitation. HOSPITAL COURSE: Full details are available in the chart for review. In quick summary, the patient had a fall and had an L1 fracture, but had a baseline history of ankylosing spondylitis, as well as degenerative joint disease. He was admitted and reviewed by the neurosurgeon, who determined that since he was neurologically intact, the patient should be treated with a TLSO brace, which should be worn at all times when the patient is upright and his fracture should heal. He determined also lorelei t if the patient develops any neurologic symptoms, then we shall get reimaging. Based on this, loretta feliz was seen by Physical Therapy and fitted for a TLSO brace which he used every time he was upright during his hospitalization. For his newly found mass, the patient was seen by our hepatobiliary specialist who recommended that after multiple reviews and findings, their final recommendation of outpatient visit with him at the [facility]obiliary [facility] center would be scheduled for an elective laparoscopic, possible open l eft lateral hepatectomy with intraoperative ultrasound at that time. Patient's hospitalization also was, however, complicated by development of a small bowel obstruction and COPD exacerbation. He was also diagnosed with a right-sided pneumonia, and these were managed appropriately while in-house. For his small bowel obstruction he ended up requiring an NG tube plac ed and there was some concern for a GI bleed when he was like coffee-ground return from the tube. B ased on the stool, occult blood tests were obtained and these had come back positive. Based on this , recommendation was for patient to undergo a colonoscopy and probably endoscopy, especially in the setting of his liver cirrhosis when more stable. This has been scheduled for outpatient followup on Friday10/04/2016. Other incidental findings were an abdominal aneurysm of 4.1 cm for which repeat imaging is recommended in 6 months to ascertain that it does get any bigger. The patient had seria l labs almost daily, he was screened for hepatitis, which came back negative and at the time of disc harge, he was tolerating a regular diet, having regular bowel movements, had been started on a good stool softener and laxative regimen and was being discharged to a rehabilitation center for continue d aggressive physical therapy and rehabilitation. FINAL DIAGNOSES: 1. Status post mechanical fall with trans L1 fracture. 2. Closed head injury secondary to fall with negative head CT. 3. Chronic obstructive pulmonary disease exacerbation, resolved. 4. Chronic alcoholic/fatty liver associated cirrhosis with left hepatic lobe nodule concerning for carcinoma. 5. Small bowel obstruction, resolved. 6. Right-sided pneumonia, status post treatment. 7. Diabetes type 2 with A1c of 8, tachycardia, now controlled. 8. 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 9. Positive stool occult with probable gastrointestinal bleed. Planned for outpatient colonoscopy. 10. A 4.1 abdominal aneurysm. The patient needs serial monitoring. 11. Cholelithiasis without cholecystitis. DISPOSITION: The patient is being discharged to acute rehabilitation center. DIET: Recommended diet is an 1800 ADA diet. ACTIVITY: Aggressive physical therapy is recommended. Followup will be per physicians over at the facility and patient is scheduled for an outpatient endoscopic procedure 10/04/2016 at this facility. This plan of care has been reviewed with the patient and his family in detail. Questions have been answered. Overall time spent on discharge coordination and planning has been more than 40 minutes. Dictated By: NADIA BURDEN MD BA/NTS Conf#: [id number] DID#: [id number]
== END 2016-10-02 21:20 | DRG 551 ==
LOC: FTE 12:53 → TEL 19:04 → MS1 09-12 17:10 → MS2 09-15 06:11
PROVIDERS: ADMIT Internal Medicine; ATTEND Internal Medicine
PROC: 0D9670Z Drainage of Stomach with Drainage Device, Via Natural or Artificial Opening (ICD-10-PCS; principal; 2016-09-24)
DX: S32.018A Other fracture of first lumbar vertebra, initial encounter for closed fracture (principal); J18.9 Pneumonia, unspecified organism; K56.60 Unspecified intestinal obstruction; J44.0 Chronic obstructive pulmonary disease with (acute) lower respiratory infection; K70.30 Alcoholic cirrhosis of liver without ascites; J44.1 Chronic obstructive pulmonary disease with (acute) exacerbation; K56.7 Ileus, unspecified; K92.2 Gastrointestinal hemorrhage, unspecified; S09.90XA Unspecified injury of head, initial encounter; J98.11 Atelectasis; D75.1 Secondary polycythemia; D72.829 Elevated white blood cell count, unspecified; E87.5 Hyperkalemia; E86.0 Dehydration; E11.9 Type 2 diabetes mellitus without complications; F10.21 Alcohol dependence, in remission; F17.200 Nicotine dependence, unspecified, uncomplicated; I71.4 Abdominal aortic aneurysm, without rupture; K80.20 Calculus of gallbladder without cholecystitis without obstruction; K70.0 Alcoholic fatty liver; K52.9 Noninfective gastroenteritis and colitis, unspecified; K29.80 Duodenitis without bleeding; K57.30 Diverticulosis of large intestine without perforation or abscess without bleeding; L40.9 Psoriasis, unspecified; M45.5 Ankylosing spondylitis of thoracolumbar region; M47.897 Other spondylosis, lumbosacral region; R16.0 Hepatomegaly, not elsewhere classified; W10.9XXA Fall (on) (from) unspecified stairs and steps, initial encounter; Z23 Encounter for immunization
CPT/HCPCS: 36600; 70450; 71010; 72100; 74000; 74176; 74177; 74182; 74250; 76705; 80048; 80053; 80061; 80069; 81003; 82105; 82150; 82270; 82378; 82803; 82962; 83036; 83540; 83690; 83735; 84484; 85025; 85610; 85730; 86301; 86704; 86709; 86803; 87086; 87340; 90686; 93005; 93306; 94640; 94664; 96374; 96375; 96376; 97110; 97116; 97163; 97530; J1940; C9113; J0692; J0744; J1815; J1885; J2270; J2405; J2543; J2765; J2920; J7030; J7042; L0462; Q9967

== ENCOUNTER 2016-10-04 12:51 | Day surgery (SDC) | payer MEDICAID ==
[~2016-10-04 12:51] MED LIST: ACET325T33 PO; AMLO-145 PO; CIPR500T4 PO; FURO-110 PO; IPRA3AMP HHN; LACT1CAP57 PO; METR500T14 PO; NOVO3I SC; PANT40TA3 PO; POLY17PO6 PO; POTA8TAB2 PO; PRED10TA PO; SENN-53 PO; UDCOL PO
== END 2016-10-04 15:14 | disposition home or self-care (01) ==
LOC: GIL 12:51
PROVIDERS: ATTEND Internal Medicine Gastroenterology
DX: R10.13 Epigastric pain (principal); Z53.8 Procedure and treatment not carried out for other reasons

== ENCOUNTER 2016-10-04 15:15 | Emergency (ER) | payer MEDICAID ==
[~2016-10-04] VITALS: Ht 172.7 cm; Wt 56.0 kg
[2016-10-04 15:16] VITALS: Ht 172.7 cm; Wt 56.0 kg
[2016-10-04] MEDS ORDERED: ONDANSETRON 4 MG INJ IV STA (16:33)
[2016-10-04] MEDS ORDERED: SOD CHLORIDE 0.9% 1,000 ML IV STA (16:33)
[2016-10-04] MEDS ORDERED: AZITHROMYCIN 500MG/250 ML NS IVPB IV STA (16:33)
[2016-10-04] MEDS ORDERED: morphine 4 MG/ML VIAL IV STA (16:33)
[2016-10-04] MEDS ORDERED: CEFTRIAXONE 1 GM/50 ML (PMX) 50 ML IVPB STA (16:33)
--- NOTE | 2016-10-04 16:41 | ERA ---
ER Documentation Chief Complaint Date/Time DATE: 10/04/16 TIME: 16:38 Chief Complaint SENT BY PMD TO R/O PNEUMONIA , PT CAME FROM [facility] HPI Patient is a frail 81-year-old male who comes in with cough and congestion as well as shortness of breath. The granddaughter states that he was diagnosed with pneumonia by an outpatient x-ray. He has not had any fever, sore throat, or runny nose. Apparently the patient has liver cancer but is unaware of his diagnosis. He does not have any abdominal pain, nausea, vomiting, or diarrhea. Patient was sent here from the endoscopy lab. ROS All systems reviewed and are negative except as per history of present illness. Medications Home Meds Active Scripts Sennosides* (Senna Lax*) 8.6 Mg Tablet, 1 TAB PO BID for 30 Days, TAB Prov:NADIA BURDEN . 10/02/16 Polyethylene Glycol* (Miralax*) 17 Gm Powd.pack, 17 GM PO DAILY for 30 Days Prov:BERTRAMNADIA . 10/02/16 Pantoprazole* (Protonix*) 40 Mg Tablet.dr, 40 MG PO BID for 30 Days, TAB Prov:BERTRAMREGINAO . 10/02/16 Furosemide* (Lasix*) 20 Mg Tablet, 20 MG PO DAILY for 30 Days, TAB Prov:REGINA. 10/02/16 Potassium Chloride* (Klor-Con*) 8 Meq Tablet.sa, 8 MEQ PO DAILY for 30 Days, TAB Prov:REGINAO . 10/02/16 Lactobacillus Rhamnosus* (Culturelle*) 1 Each Cap.sprink, 1 CAP PO BID for 7 Days, CAP Prov:BERTRAMREGINAO . 10/02/16 Metronidazole* (Metronidazole*) 500 Mg Tablet, 500 MG PO Q8 for 5 Days, TAB Prov:BERTRAMREGINAO . 10/02/16 Ciprofloxacin Hcl* (Ciprofloxacin Hcl*) 500 Mg Tablet, 500 MG PO BID for 5 Days , TAB Prov:BERTRAMREGINAO . 10/02/16 Prednisone* (Prednisone*) 10 Mg Tab, 10 MG PO DAILY, #20 TAB take 4 pills tomorrow take 4 pills on the next day take 3 pills on the next day take 3 pills on the next day take 2 pills on the next day take 2 pills on the next day take 1 pill on the next day take 1 pill on the next day then stop Prov:NADIA BURDENJose 10/02/16 Ipratropium-Albuterol (Ipratropium-Albuterol) 0.5-3 Mg/3 Ml Ampul.neb, 3 ML HHN Q6HWA RESP THERAPY for 5 Days Prov:NADIA BURDENJose 10/02/16 Ipratropium-Albuterol (Ipratropium-Albuterol) 0.5-3 Mg/3 Ml Ampul.neb, 3 ML HHN Q4H RESP THERAPY Y for SHORTNESS OF BREATH for 30 Days Prov:NADIA BURDENJose 10/02/16 Insulin Aspart* (Novolog Insulin Pen*) 100 Unit/Ml Soln, 0 UNIT SC AC MEALS AND BEDTIME for 30 Days Prov:NADIA BURDENJose 10/02/16 Docusate Sodium* (Docusate Sodium* Liq) 50 Mg/5 Ml Liquid, 200 MG PO Q12 for 30 Days Prov:NADIA BURDEN. 10/02/16 Amlodipine Besylate* (Amlodipine Besylate*) 5 Mg Tablet, 5 MG PO DAILY for 30 Days, TAB Prov:NADIA BURDEN. 10/02/16 Acetaminophen* (Tylenol*) 325 Mg Tablet, 650 MG PO Q6H Y for PAIN LEVEL 1-3 OR FEVER for 30 Days, TAB Prov:NADIA BURDEN. 10/02/16 Allergies Allergies: Coded Allergies: No Known Allergy (Unverified , 10/04/16) PMhx/Soc History of Surgery: No Anesthesia Reaction: No Hx Neurological Disorder: No Hx Respiratory Disorders: No Hx Cardiac Disorders: No Hx Psychiatric Problems: No Hx Miscellaneous Medical Probl: Yes (DM, psoriasis, alcohol abuse) Hx Alcohol Use: Yes (previous abuse ) Hx Substance Use: No Hx Tobacco Use: Yes FmHx Family History: coronary disease, diabetes Physical Exam Vitals Vital Signs Date Time Temp Pulse Resp B/P Pulse Ox O2 Delivery O2 Flow Rate FiO2 10/04/16 18:20 98.5 83 18 135/64 99 Room Air 3.0 Nasal Cannula 10/04/16 16:42 Nasal Cannula 2 10/04/16 15:16 98.5 72 18 134/61 97 Physical Exam Const: [] Well-developed frail appearing male on the bed with no acute respiratory distress Head: Atraumatic normocephalic Eyes: Normal Conjunctiva ENT: Normal External Ears, Nose and Mouth. Neck: Full range of motion..~ No meningismus. Resp: Poor air movement diffusely, coarse in the left base Cardio: Regular rate and rhythm, no murmurs Abd: Soft, non tender, non distended. Normal bowel sounds Skin: No petechiae or rashes Back: No midline or flank tenderness Ext: No cyanosis, or edema, skin tenting consistent with dehydration Neur: Awake and alert, generally weak, muscle wasting Psych: Normal Mood and Affect Result Diagram: 10/04/16 1630 10/04/16 1630 Results 24 hrs Laboratory Tests Test 10/04/16 16:30 Activated Partial Thromboplast Time 30.1Sec Alanine Aminotransferase (ALT/SGPT) 54IU/L Albumin 3.6g/dl Albumin/Globulin Ratio 1.33 Alkaline Phosphatase 197IU/L Anion Gap 15 Aspartate Amino Transf (AST/SGOT) 35IU/L Basophils # 0.010^3/ul Basophils % 0.2% Blood Urea Nitrogen 26mg/dl Calcium Level 9.1mg/dl Carbon Dioxide Level 28mmol/L Chloride Level 101mmol/L Creatinine 0.71mg/dl Direct Bilirubin 0.00mg/dl Eosinophils # 0.110^3/ul Eosinophils % 1.2% Globulin 2.70g/dl Glucose Level 111mg/dl Hematocrit 50.4% Hemoglobin 16.9g/dl INR International Normalized Ratio 1.05 Indirect Bilirubin 1.1mg/dl Lactic Acid Level 1.8mmol/L Lymphocytes # 1.210^3/ul Lymphocytes % 11.9% Mean Corpuscular Hemoglobin 31.9pg Mean Corpuscular Hemoglobin Concent 33.5g/dl Mean Corpuscular Volume 95.1fl Mean Platelet Volume 10.9fl Monocytes # 1.010^3/ul Monocytes % 10.0% Neutrophils # 7.910^3/ul Neutrophils % 76.4% Nucleated Red Blood Cells # 0.010^3/ul Nucleated Red Blood Cells % 0.0/100WBC Platelet Count 84537^3/UL Potassium Level 3.4mmol/L Prothrombin Time 13.7Sec Prothrombin Time Ratio 1.1 Red Blood Count 5.3010^6/ul Red Cell Distribution Width 14.0% Sodium Level 141mmol/L Total Bilirubin 1.1mg/dl Total Protein 6.3g/dl Troponin I < 0.010ng/ml White Blood Count 10.410^3/ul Current Medications Medications (Trade) Dose Ordered Sig/Lyudmila Route PRN Reason Start Time Stop Time Status Last Admin Dose Admin Sodium Chloride (NS) 1,000 ml @ 1,000 mls/hr Q1H STAT IV 10/04/16 16:33 10/04/16 17:32 DC 10/04/16 16:49 Morphine Sulfate (morphine) 4 mg ONCE STAT IV 10/04/16 16:33 10/04/16 16:37 DC 10/04/16 16:48 Azithromycin 500 mg 500 mg ONCE STAT IV 10/04/16 16:33 10/04/16 16:37 DC 10/04/16 17:24 Ceftriaxone Sodium (Rocephin) 50 ml @ 100 mls/hr ONCE STAT IVPB 10/04/16 16:33 10/04/16 17:02 DC 10/04/16 16:47 Ondansetron HCl (Zofran Inj) 4 mg ONCE STAT IV 10/04/16 16:33 10/04/16 16:37 DC 10/04/16 16:48 IV Flush 10 ml 10 ml STK-MED ONCE .ROUTE 10/04/16 18:14 10/04/16 18:15 DC 10/04/16 18:22 Sodium Chloride 100 ml @ ud STK-MED ONCE .ROUTE 10/04/16 18:14 10/04/16 18:15 DC 10/04/16 18:22 Iohexol (Omnipaque) 100 ml @ ud STK-MED ONCE .ROUTE 10/04/16 18:14 10/04/16 18:15 DC 10/04/16 18:22 Procedures/MDM Differential includes but is not limited to pneumonia, pleural effusion, metastatic cancer, pulmonary embolism EKG: Rate/Rhythm: Normal Sinus Rhythm at 80 bpm QRS, ST, T-waves: No changes consistent w/ acute ischemia, Q waves present in lead III aVF and V1 Impression: evidence of old ischemia , no arrhythmia CT of the chest does not demonstrate any evidence of pneumonia, cancer, or pulmonary embolism. It does demonstrate bilateral pleural effusions. It also demonstrates his thoracic fracture. Patient apparently is not a candidate for kyphoplasty. He does not need to be admitted for his bilateral pleural effusions as he is not in any significant respiratory distress. It appears he is stable for discharge back to his convalescent home at this time. Hopefully they can reschedule his endoscopy as an outpatient soon. This has been discussed with the family. Departure Diagnosis: Primary Impression: Pleural effusion Additional Impressions: Dyspnea Qualified Code: R06.02 - Shortness of breath Liver tumor or cancer Diabetes mellitus Qualified Code: E11.9 - Type 2 diabetes mellitus without complication, unspecified exterminator insulin use status COPD (chronic obstructive pulmonary disease) Qualified Code: J44.9 - Chronic obstructive pulmonary disease, unspecified COPD type Hypertension Qualified Code: I10 - Essential hypertension Lumbar compression fracture Qualified Code: S32.000D - Lumbar compression fracture, with routine healing, subsequent encounter Condition: Fair Additional Instructions: Please reschedule the endoscopy as an outpatient. Continue his care as before. Return to the emergency department if at any time he develops any increasing shortness of breath, fever, chest pain, or any new or worsening symptoms. CARITO ROWELL Oct 04, 2016 16:41
[2016-10-04 16:56] LABS: ADD SCAN DIFF NO
[2016-10-04 16:58] LABS: BASOPHILS % 0.2 % (0.0-2.0); EOSINOPHILS # 0.1 10^3/ul (0.0-0.5); EOSINOPHILS % 1.2 % (0.0-7.0); HEMATOCRIT 50.4 % (42.0-52.0); HEMOGLOBIN 16.9 g/dl (14.0-18.0); LYMPHOCYTES # 1.2 10^3/ul (0.8-2.9); LYMPHOCYTES % 11.9 % (15.0-51.0); MEAN CORPUSCULAR HEMOGLOBIN 31.9 pg (29.0-33.0); MEAN CORPUSCULAR HGB CONC 33.5 g/dl (32.0-37.0); MEAN CORPUSCULAR VOLUME 95.1 fl (82.0-101.0); MEAN PLATELET VOLUME 10.9 fl (7.4-10.4); NEUTROPHIL # 7.9 10^3/ul (1.6-7.5); NEUTROPHILS % 76.4 % (39.0-77.0); PLATELET COUNT 159 10^3/UL (140-415); WHITE BLOOD COUNT 10.4 10^3/ul (4.8-10.8)
[2016-10-04 17:10] LABS: PARTIAL THROMBOPLASTIN TIME 30.1 Sec (25.0-35.0)
[2016-10-04 17:33] LABS: ALBUMIN 3.6 g/dl (3.3-4.9); CHLORIDE 101 mmol/L (97-110); SODIUM 141 mmol/L (135-144)
[2016-10-04 17:34] LABS: POTASSIUM 3.4 mmol/L (3.5-5.1)
[2016-10-04 17:36] LABS: ANION GAP 15 (8-16); ASPARTATE AMINO TRANSFERASE 35 IU/L (15-46); BILIRUBIN,INDIRECT 1.1 mg/dl (0-1.1); BILIRUBIN,TOTAL 1.1 mg/dl (0.2-1.3); CARBON DIOXIDE 28 mmol/L (21-31); CREATININE 0.71 mg/dl (0.61-1.24)
[2016-10-04 17:37] LABS: ALANINE AMINOTRANSFERASE 54 IU/L (13-69); ALBUMIN/GLOBULIN RATIO 1.33; ALKALINE PHOSPHATASE 197 IU/L (42-121); BLOOD UREA NITROGEN 26 mg/dl (7-20); CALCIUM 9.1 mg/dl (8.4-10.2); GLUCOSE 111 mg/dl (70-220); TOTAL PROTEIN 6.3 g/dl (6.1-8.1)
--- NOTE | 2016-10-04 17:47 | RADRPT ---
PROCEDURE: XR Chest. CLINICAL INDICATION: Shortness of breath. TECHNIQUE: Single frontal view of the chest was obtained. COMPARISON: 09/29/2016. FINDINGS: Cardiac silhouette is mildly enlarged. There is calcification and slight unfolding of the thoracic aorta. The upper lobe vasculature appears mildly prominent. There is very subtle prominence of the interstitium. There is left lower lobe consolidation and/or atelectasis in the retrocardiac region . There are tiny bilateral pleural effusions. Nasogastric tube has been removed in the interval. IMPRESSION: 1. Findings of mild pulmonary venous hypertension with interstitial prominence which may reflect con gestion. 2. Minimal left lower lobe subsegmental atelectasis or RPTAT: [facility] Physician Ayden Date Time Electronically viewed and signed by Physician Ayden on 10/04/2016 17:46 /
[2016-10-04 17:54] LABS: TROPONIN-I < 0.010 ng/ml (0.00-0.12)
[2016-10-04 18:01] LABS: INR 1.05; PROTIME 13.7 Sec (12.2-14.2); PT RATIO 1.1
[2016-10-04] MEDS ORDERED: IOHEXOL 100 ML ONE (18:14)
[2016-10-04] MEDS ORDERED: SOD CHLORIDE 0.9% 100 ML ONE (18:14)
--- NOTE | 2016-10-04 18:51 | RADRPT ---
PROCEDURE: CT Chest with IV contrast. CLINICAL INDICATION: Pain. History of liver cancer. TECHNIQUE: CT scan of the chest was performed on a multidetector scanner. The patient was scanned following the uncomplicated intravenous administration of 100 cc of Isovue 370 contrast. 3D, coron al and sagittal reformatted images were obtained from the axial source images. Images were reviewed on a high-resolution PACS workstation. The total exam CTDlvol = 14 mGy and DLP = 827.72 mGy-cm. One of the following 3 dose reduction techniques were used: Automated exposure control; adjustment of th e mA and/or kV according to patient size; or use of iterative reconstruction technique. COMPARISON: Chest x-ray 10/04/2016, CT abdomen 09/24/2016, MRI abdomen 09/13/2016 FINDINGS: No filling defects are identified within the pulmonary arteries to suggest pulmonary artery thrombos is. Thoracic aorta is normal caliber without aneurysm or dissection. There is extensive partially c alcified plaque throughout the aorta with intraluminal plaque greatest at the upper abdominal aorta. There is no mediastinal or hilar lymphadenopathy or mass. Heart is normal size. No pericardial f luid or thickening. There are small dependent and bilateral pleural effusions with associated predominately lower lobe a telectasis. There are emphysematous changes greatest in the upper lobes. There is no pneumothorax. There is redemonstrated now subacute L1 vertebral body compression fracture with slight posterior re tropulsion. There is diffuse bridging osteophytes throughout the thoracic spine consistent with ank ylosing spondylitis. Imaging obtained through the upper abdomen demonstrates mild ascites. There are gallstones within t he contracted gallbladder. There is intrahepatic branching gas compatible with gas within the bilia ry tree. No gross biliary ductal dilatation. Previously demonstrated mass within left lobe of the l iver best visualized on MRI is not distinctly visualized on the current study. IMPRESSION: 1. No evidence for pulmonary embolus. 2. No aortic aneurysm or dissection. Extensive aortic atherosclerotic plaque. 3. Bilateral pleural effusions with associated predominately lower lobe atelectasis. 4. Previously demonstrated mass left lobe of liver on MRI is not well characterized. 5. Redemonstrated L1 vertebral body now subacute fracture with slight posterior retropulsion, uncha nged. 6. Cholelithiasis in contracted gallbladder. Intrahepatic gas within the biliary tree. 7. Small amount of ascites. RPTAT: [facility]K .Ha Dalton MD, MD Date Time Electronically viewed and signed by .Ha Dalton MD, MD on 10/04/2016 18:50 .K/
[2016-10-04] MEDS ORDERED: ACETAMINOPHEN 325 MG TAB PO PRN (19:30)
[2016-10-04] MEDS ORDERED: ONDANSETRON 4 MG INJ IV PRN (19:30)
[2016-10-04 22:01] VITALS: BP 130/60; PULSE 80; RESP 18; TEMP 98.5
== END 2016-10-04 22:00 | disposition home or self-care (01) ==
LOC: E/R 15:15
DX: J90 Pleural effusion, not elsewhere classified (principal); R06.02 Shortness of breath; E11.9 Type 2 diabetes mellitus without complications; J44.9 Chronic obstructive pulmonary disease, unspecified; I10 Essential (primary) hypertension; S32.000D Wedge compression fracture of unspecified lumbar vertebra, subsequent encounter for fracture with routine healing; X58.XXXD Exposure to other specified factors, subsequent encounter; Z79.4 Long term (current) use of insulin; Z85.05 Personal history of malignant neoplasm of liver; Z87.891 Personal history of nicotine dependence
CPT/HCPCS: 36415; 71010; 71275; 80053; 83605; 84484; 85025; 85610; 85730; 87040; 96374; 96375; J0456; J0696; J2270; J2405; J7030; Q9967; Z7502; Z7610; 93005

== ENCOUNTER 2017-09-07 16:21 | Emergency (ER) | END 2017-09-08 01:20 | disposition short-term general hospital (02) ==